=== PATIENT | female | born 1975 | race American Indian/Alaskan Native ===

== ENCOUNTER 2017-02-01 22:51 | Emergency (ER) | payer SELFPAY ==
[2017-02-01 23:50] LABS: Basophils % (Auto) 0.5 % (0.0-1.8); Eosinophils % (Auto) 1.8 % (0.0-4.3); Hematocrit 39.3 % (30.3-42.9); Hemoglobin 12.9 gm/dl (10.1-14.3); Mean Corpuscular HGB Conc 33 % (30-34); Mean Corpuscular Hemoglobin 27 pg (28-32); Mean Corpuscular Volume 83 fl (79-97); Platelet Count 325 K/mm3 (140-440); Red Blood Count 4.74 M/mm3 (3.65-5.03); White Blood Count 12.1 K/mm3 (4.5-11.0)
[2017-02-02 00:18] LABS: Blood Urea Nitrogen 10 mg/dL (7-17); Calcium 9.1 mg/dL (8.4-10.2); Carbon Dioxide 20 mmol/L (22-30); Chloride 102.3 mmol/L (98-107); Glucose 92 mg/dL (65-100); Potassium 3.2 mmol/L (3.6-5.0); Sodium 138 mmol/L (137-145)
[2017-02-02 00:47] LABS: Anion Gap 19 mmol/L
[2017-02-02] MEDS ORDERED: K-DUR PO ONE (06:18)
[2017-02-02] MEDS ORDERED: NORCO 5/325 PO ONE (06:38)
--- NOTE | 2017-02-02 06:52 | Emergency Department Report ---
HPI - General Chief Complaint: Chest Pain Time Seen by Provider: 02/02/17 06:18 - HPI HPI: This is a 41-year-old -Tong[place] female presents to the emergency department by EMS with complaint of sharp generalized chest pain that occurred last night but has since resolved. She also complains of right lower extremity pain and swelling that she says is intermittent but has been bothering her since yesterday. She has a past medical history of arthritis, remote lung cancer, CVA without residual deficits, right lower extremity DVT in 2006, borderline diabetes, migraine headaches, coronary artery disease with questionable MS, hypertension. The patient is also complaining of elevated blood pressure saying that it was systolic 190 prior to presentation and with EMS. She is not on any blood pressure medication but says she had a previous history of hypertension and used to be on medications, although she cannot remember which one. She also complains of a generalized headache that she says is a migraine consistent with her history of migraines. She did not take anything for symptoms prior to presentation. She denies any tobacco or illicit drug use or abuse. Recent travel or sick contacts at home. ED Past Medical Hx - Past Medical History Hx Hypertension: Yes Hx CVA: Yes (age 21) Hx Heart Attack/AMI: Yes (3 times/mild) Hx Diabetes: Yes (boarderline) Hx Deep Vein Thrombosis: Yes ([facility] 2006) Hx of Cancer: Yes (2009 lung) Hx Arthritis: Yes Hx Headaches / Migraines: Yes Hx Seizures: Yes (in her youth) - Surgical History Additional Surgical History: breast cyst, - Social History Smoking Status: Unknown if ever smoked Substance Use Type: None - Medications Home Medications: Home Medications Medication Instructions Recorded Confirmed Last Taken Type HYDROcodone/APAP 5-325 [[place] 1 each PO Q6HR PRN #10 tablet 02/02/17 Unknown Rx 5/325] ED Review of Systems ROS: Stated complaint: CHEST PAIN Other details as noted in HPI Comment: All other systems reviewed and negative Constitutional: denies: chills, fever Eyes: denies: eye pain, eye discharge, vision change ENT: denies: ear pain, throat pain Respiratory: shortness of breath. denies: cough Cardiovascular: chest pain, edema. denies: palpitations Gastrointestinal: denies: abdominal pain, nausea, diarrhea Genitourinary: denies: urgency, dysuria, discharge Musculoskeletal: arthralgia, myalgia Skin: denies: rash, lesions Neurological: headache. denies: numbness, paresthesias Physical Exam - Physical Exam Vital Signs: Vital Signs 02/01/17 02/02/17 02/02/17 23:04 01:11 05:00 Temperature 98.8 F 98.9 F Pulse Rate 98 H 72 79 Respiratory 18 14 18 Rate Blood Pressure 123/85 127/74 Blood Pressure 120/70 [Right] O2 Sat by Pulse 100 98 98 Oximetry 02/02/17 05:44 Temperature Pulse Rate Respiratory 18 Rate Blood Pressure Blood Pressure [Right] O2 Sat by Pulse Oximetry Physical Exam: GENERAL: The patient is well-developed well-nourished. HEENT: Normocephalic. Atraumatic. Extraocular motions are intact. Patient has moist mucous membranes. Pupils equal reactive to light bilaterally. NECK: Supple. Trachea is midline. CHEST/LUNGS: Clear to auscultation. There is no respiratory distress noted. HEART/CARDIOVASCULAR: Regular. There is no tachycardia. There is no gallop rub or murmur. ABDOMEN: Abdomen is soft, nontender. Patient has normal bowel sounds. There is no abdominal distention. SKIN: There is some nonpitting right lower extremity swelling that is slightly larger than the left lower extremity. No skin color change, erythema, fluctuance or warmth. NEURO: The patient is awake, alert, and oriented. The patient is cooperative. The patient has no focal neurologic deficits. The patient has normal speech. MUSCULOSKELETAL: There is no tenderness or deformity. There is no limitation range of motion. There is no evidence of acute injury. ED Course Vital Signs 02/01/17 02/02/17 02/02/17 23:04 01:11 05:00 Temperature 98.8 F 98.9 F Pulse Rate 98 H 72 79 Respiratory 18 14 18 Rate Blood Pressure 123/85 127/74 Blood Pressure 120/70 [Right] O2 Sat by Pulse 100 98 98 Oximetry 02/02/17 05:44 Temperature Pulse Rate Respiratory 18 Rate Blood Pressure Blood Pressure [Right] O2 Sat by Pulse Oximetry ED Medical Decision Making - Lab Data Result diagrams: 02/01/17 23:29 02/01/17 23:29 - EKG Data -: EKG Interpreted by Fl EKG shows normal: sinus rhythm, axis, intervals, QRS complexes, ST-T waves Rate: normal - EKG Data When compared to previous EKG there are: previous EKG unavailable Interpretation: normal EKG - Radiology Data Radiology results: report reviewed, image reviewed interpreted by me: Chest x-ray did not show any acute process. Heart is normal shape and size. No effusions. No pneumothorax. No signs of pneumonia seen. Right lower extremity venous Doppler negative for DVT. CT angiography of the chest does not show any pulmonary embolism, dissection or any acute process. - Medical Decision Making 41-year-old female presents to the emergency department with a few different complaints. She had some chest pain but that has since resolved prior to presentation. She complains of some right lower extremity pain and swelling that is intermittent but might be the main reason she came to the hospital today. She also has complaint of a headache that is consistent with previous migraines. EKG does not show any signs of ST elevation MS, ischemia or dysrhythmia. Labs show negative troponins 3 and the rest are mostly unremarkable except for a slightly elevated equivocal d-dimer. With an elevated d-dimer and the right lower extremity pain, the patient had a right lower extremity venous Doppler that was negative for DVT. Chest CT angiography of the chest was negative for PE or dissection. She was given a dose of pain medication with some improvement. Patient was asking for blood pressure medication but her blood pressure has been within the normal range during her entire ED course and therefore do not plan to start her on any antihypertensives for fear of hypotension. However the patient was given a referral for primary care, cardiology and orthopedist. She will return to the ER with any worsening of her symptoms or any acute distress. - Differential Diagnosis DVT, MS, PE, costochondritis Critical Care Time: No Critical care attestation.: If time is entered above; I have spent that time in minutes in the direct care of this critically ill patient, excluding procedure time. ED Disposition Clinical Impression: Pain of right leg, Right leg swelling Chest pain Qualifiers: Chest pain type: unspecified Qualified Code(s): R07.9 - Chest pain, unspecified Disposition: DC-01 TO HOME OR SELFCARE Is pt being admited?: No Condition: Good Instructions: Chest Pain (ED), Leg Edema (ED), Arthralgia (ED) Additional Instructions: Please follow-up with a primary care physician in the next few days. 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 Ott, in case you would like to follow-up regarding your chest pain and your concern for elevated blood pressure and/or hypertensive history. I did do a referral for a local orthopedist, Dr. Stallings, in case she would like to follow-up regarding your intermittent but chronic right lower leg pain and swelling. Return to the emergency department with any worsening of your symptoms or any acute distress. You've been prescribed a medication that is sedating. Therefore this medication cannot be mixed with alcohol, or taken prior to driving, working, or being responsible for children. Prescriptions: HYDROcodone/APAP 5-325 [[place] 5/325] 1 each PO Q6HR PRN #10 tablet PRN Reason: Pain Referrals: DANIELLE OTT MD [Staff Physician] - 3-5 Days AMANDA CORTEZ MD [Staff Physician] - 3-5 Days PRIMARY CARE, [Primary Care Provider] - 3-5 Days EVERARDO STALLINGS MD [Staff Physician] - 3-5 Days
[2017-02-02 07:36] LABS: INR 1.01 (0.87-1.13)
[2017-02-02 07:37] LABS: Partial Thromboplastin Time 32.5 Sec. (24.2-36.6)
--- NOTE | 2017-02-02 08:31 | XRay Report ---
PORTABLE CHEST: Chest pain. An AP portable view of the chest demonstrates a normal cardiac contour considering the limits of this technique. The lungs are clear with no evidence of infiltrate, fluid or failure. IMPRESSION: Normal portable chest.
[2017-02-02] MEDS ORDERED: NACL ONE ×2 (09:12→11:50)
--- NOTE | 2017-02-02 12:56 | Cat Scan Report ---
CTA chest: History: Chest pain, elevated d-dimer. Findings: No evidence of aortic aneurysm or pulmonary embolism. No pleural pericardial effusion. No mediastinal mass. No evidence of adenopathy. Normal lung parenchyma. No discrete nodularity or consolidation. Impression: No evidence of pulmonary embolism. No acute lung changes.
[2017-02-02 13:41] VITALS: BP 124/73
== END 2017-02-02 13:42 | disposition home or self-care (01) ==
LOC: ED 22:51
DX: M79.604 Pain in right leg (principal); R07.89 Other chest pain; Z86.73 Personal history of transient ischemic attack (TIA), and cerebral infarction without residual deficits; I25.2 Old myocardial infarction; E11.9 Type 2 diabetes mellitus without complications; I82.401 Acute embolism and thrombosis of unspecified deep veins of right lower extremity; M19.90 Unspecified osteoarthritis, unspecified site; G43.909 Migraine, unspecified, not intractable, without status migrainosus; R56.9 Unspecified convulsions; C34.90 Malignant neoplasm of unspecified part of unspecified bronchus or lung; Z88.0 Allergy status to penicillin; Z88.8 Allergy status to other drugs, medicaments and biological substances
CPT/HCPCS: 36415; 71010; 71275; 80048; 81025; 84484; 85025; 85379; 85610; 85730; 93005; 93010

== ENCOUNTER 2017-03-12 19:48 | Emergency (ER) | payer SELFPAY ==
[2017-03-12 23:10] LABS: Basophils % (Auto) 0.8 % (0.0-1.8); Hematocrit 40.9 % (30.3-42.9); Hemoglobin 13.3 gm/dl (10.1-14.3); Mean Corpuscular HGB Conc 33 % (30-34); Mean Corpuscular Hemoglobin 27 pg (28-32); Mean Corpuscular Volume 84 fl (79-97); Platelet Count 350 K/mm3 (140-440); Red Blood Count 4.88 M/mm3 (3.65-5.03); Red Cell Distribution Width 15.1 % (13.2-15.2); White Blood Count 9.7 K/mm3 (4.5-11.0)
[2017-03-12 23:16] LABS: Blood Urea Nitrogen 9 mg/dL (7-17); Calcium 8.8 mg/dL (8.4-10.2); Carbon Dioxide 22 mmol/L (22-30); Chloride 102.6 mmol/L (98-107); Glucose 98 mg/dL (65-100); Sodium 139 mmol/L (137-145)
[2017-03-12 23:22] LABS: Anion Gap 19 mmol/L; Potassium 4.1 mmol/L (3.6-5.0)
[2017-03-13 00:49] LABS: Bilirubin,Urine NEG (Negative); Blood,Urine MOD (Negative); Ketones,Urine NEG (Negative); Leukocyte Esterase,Urine NEG (Negative); Mucus,Urine FEW /HPF; Nitrite,Urine NEG (Negative); Urobilinogen,Urine < 2.0 mg/dL (<2.0)
[2017-03-13] MEDS ORDERED: TYLENOL ONE (02:33)
[2017-03-13] MEDS ORDERED: TYLENOL PO ONE ×2 (05:15→10:48)
--- NOTE | 2017-03-13 10:32 | Emergency Department Report ---
HPI - General Chief Complaint: Dizziness Time Seen by Provider: 03/13/17 10:31 - HPI HPI: patient c/o dizziness, room spinning around her, no fever, no headache. patient states she has had similar symptoms in the past. ED Past Medical Hx - Past Medical History Previous Medical History?: Yes Hx Hypertension: Yes Hx CVA: Yes (age 21) Hx Heart Attack/AMI: Yes (3 times/mild) Hx Diabetes: Yes (boarderline) Hx Deep Vein Thrombosis: Yes ([facility] 2006) Hx Arthritis: Yes Hx Headaches / Migraines: Yes Hx Seizures: Yes (in her youth) - Surgical History Past Surgical History?: Yes Additional Surgical History: breast cyst, - Social History Smoking Status: Former Smoker Substance Use Type: Alcohol, Marijuana - Medications Home Medications: Home Medications Medication Instructions Recorded Confirmed Last Taken Type HYDROcodone/APAP 5-325 [[place] 1 each PO Q6HR PRN #10 tablet 02/02/17 Unknown Rx 5/325] ED Review of Systems ROS: Stated complaint: HEADACHE/DIZZINESS Other details as noted in HPI Physical Exam - Physical Exam Vital Signs: Vital Signs 03/12/17 03/13/17 03/13/17 21:32 02:40 08:36 Temperature 99.2 F Pulse Rate 77 Respiratory 18 18 Rate Blood Pressure 142/81 O2 Sat by Pulse 97 99 Oximetry 03/13/17 03/13/17 08:45 09:01 Temperature Pulse Rate Respiratory Rate Blood Pressure 138/77 138/77 O2 Sat by Pulse 100 93 Oximetry Physical Exam: - General Limitations: No Limitations General appearance: alert, in no apparent distress - Head Head exam: Present: atraumatic, normocephalic - Eye Eye exam: Present: normal appearance - ENT ENT exam: Present: mucous membranes moist - Neck Neck exam: Present: normal inspection - Respiratory Respiratory exam: Present: normal lung sounds bilaterally. Absent: respiratory distress - Cardiovascular Cardiovascular Exam: Present: regular rate, normal rhythm. Absent: systolic murmur, diastolic murmur, rubs, gallop - GI/Abdominal GI/Abdominal exam: Present: soft, normal bowel sounds - Extremities Exam Extremities exam: Present: normal inspection - Back Exam Back exam: Present: normal inspection - Neurological Exam Neurological exam: Present: alert, oriented X3, CN II-XII intact - Psychiatric Psychiatric exam: Present:normal affect - Skin Skin exam: Present: warm, dry, intact, normal color. Absent: rash ED Course Vital Signs 03/12/17 03/13/17 03/13/17 21:32 02:40 08:36 Temperature 99.2 F Pulse Rate 77 Respiratory 18 18 Rate Blood Pressure 142/81 O2 Sat by Pulse 97 99 Oximetry 03/13/17 03/13/17 08:45 09:01 Temperature Pulse Rate Respiratory Rate Blood Pressure 138/77 138/77 O2 Sat by Pulse 100 93 Oximetry ED Medical Decision Making - Lab Data Result diagrams: 03/12/17 22:43 03/12/17 22:43 Critical care attestation.: If time is entered above; I have spent that time in minutes in the direct care of this critically ill patient, excluding procedure time. ED Disposition Clinical Impression: Dizziness, Hypoglycemia Disposition: OP ADMIT IP TO THIS HOSP Condition: Stable Instructions: Dizziness (ED) Referrals: PRIMARY MD NIKITA [Primary Care Provider] - 3-5 Days CECILLE BUCHANAN MD [Staff Physician] - 3-5 Days
[2017-03-13 10:54] VITALS: BP 120/63
[2017-03-13] MEDS ORDERED: MOTRIN PO ONE (11:20)
[2017-03-13] MEDS ORDERED: MOTRIN ONE (11:20)
--- NOTE | 2017-03-13 11:43 | XRay Report ---
ROUTINE CHEST, TWO VIEWS: HISTORY: Shortness of breath. The trachea, heart, mediastinal contour, lung hurd and bony thorax are unremarkable. IMPRESSION: No acute cardiopulmonary process is appreciated.
== END 2017-03-13 10:55 | disposition admitted as inpatient to this hospital (09) ==
LOC: ED 19:48
DX: E11.649 Type 2 diabetes mellitus with hypoglycemia without coma (principal); R42 Dizziness and giddiness; I10 Essential (primary) hypertension; Z86.73 Personal history of transient ischemic attack (TIA), and cerebral infarction without residual deficits; M19.90 Unspecified osteoarthritis, unspecified site; Z87.891 Personal history of nicotine dependence; F12.10 Cannabis abuse, uncomplicated; Z88.0 Allergy status to penicillin; Z88.8 Allergy status to other drugs, medicaments and biological substances
CPT/HCPCS: 36415; 71020; 80048; 81001; 82962; 84484; 84703; 85025; 93005; 93010

== ENCOUNTER 2017-06-18 17:03 | Emergency (ER) | payer OTHER ==
[2017-06-18 18:17] LABS: Basophils % (Auto) 0.7 % (0.0-1.8); Eosinophils % (Auto) 1.8 % (0.0-4.3); Hematocrit 39.2 % (30.3-42.9); Hemoglobin 13.1 gm/dl (10.1-14.3); Mean Corpuscular HGB Conc 33 % (30-34); Mean Corpuscular Hemoglobin 28 pg (28-32); Mean Corpuscular Volume 85 fl (79-97); Platelet Count 324 K/mm3 (140-440); Red Blood Count 4.62 M/mm3 (3.65-5.03); Red Cell Distribution Width 14.4 % (13.2-15.2); White Blood Count 11.3 K/mm3 (4.5-11.0)
[2017-06-18 18:24] LABS: Anion Gap 22 mmol/L; BUN/Creatinine Ratio 22; Blood Urea Nitrogen 11 mg/dL (7-17); Calcium 9.1 mg/dL (8.4-10.2); Carbon Dioxide 20 mmol/L (22-30); Glucose 111 mg/dL (65-100); Potassium 3.8 mmol/L (3.6-5.0); Sodium 142 mmol/L (137-145)
--- NOTE | 2017-06-18 21:21 | XRay Report ---
FINAL REPORT PROCEDURE: XR CHEST ROUTINE 2V TECHNIQUE: PA and lateral chest radiographs were obtained. CPT 06005 HISTORY: chest pain/cough COMPARISON: No prior studies are available for comparison. FINDINGS: Heart: Normal. Mediastinum/Vessels: Normal. Lungs/Pleural space: Normal. Bony thorax: No acute osseous abnormality. Other: IMPRESSION: Normal examination.
--- NOTE | 2017-06-19 00:43 | Emergency Department Report ---
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 No fever no shortness of breath. No vomiting MD Complaint: chest pain Pain Location: other (diffuse) Severity scale (0 -10): 7 - Related Data Home Medications Medication Instructions Recorded Confirmed Last Taken Aspirin [Aspirin BABY CHEW TAB] 81 mg PO DAILY 06/19/17 06/19/17 Unknown Allergies Allergy/AdvReac Type Severity Reaction Status Date / Time fluoxetine HCl [From Prozac] Allergy Unknown Verified 02/01/17 23:13 Penicillins Allergy Unknown Verified 02/01/17 23:13 Heart Score - HEART Score History: Moderately suspicious EKG: Normal Age: < 45 Risk factors: 1-2 risk factors Troponin: < normal limit HEART Score: 2 - Critical Actions Critical Actions: 0-3 pts:0.9-1.7%risk of adverse cardiac event.Candidate for discharge ED Review of Systems ROS: Stated complaint: CHEST PAIN Other details as noted in HPI Comment: All other systems reviewed and negative Constitutional: denies: chills, fever ENT: throat pain. denies: dental pain, hearing loss Respiratory: cough. denies: orthopnea, shortness of breath, SOB with exertion Cardiovascular: chest pain. denies: palpitations, dyspnea on exertion, orthopnea, edema, syncope, paroxysmal nocturnal dyspnea Gastrointestinal: denies: abdominal pain, nausea, vomiting, diarrhea, constipation, hematemesis, melena, hematochezia Genitourinary: denies: urgency, dysuria Neurological: denies: headache, weakness, numbness ED Past Medical Hx - Past Medical History Previous Medical History?: Yes Hx Hypertension: Yes Hx CVA: Yes (age 21) Hx Heart Attack/AMI: Yes (3 times/mild) Hx Diabetes: Yes (boarderline) Hx Deep Vein Thrombosis: Yes ([facility] 2006) Hx Arthritis: Yes Hx Headaches / Migraines: Yes Hx Seizures: Yes (in her youth) - Surgical History Past Surgical History?: Yes Additional Surgical History: breast cyst, - Social History Smoking Status: Never Smoker Substance Use Type: Marijuana - Medications Home Medications: Home Medications Medication Instructions Recorded Confirmed Last Taken Type Aspirin [Aspirin BABY CHEW TAB] 81 mg PO DAILY 06/19/17 06/19/17 Unknown History ED Physical Exam - General Limitations: No Limitations General appearance: alert, in no apparent distress - Head Head exam: Present: atraumatic, normocephalic - Eye Eye exam: Present: normal appearance, PERRL - ENT ENT exam: Present: normal exam, normal orophraynx, mucous membranes moist - Neck Neck exam: Present: normal inspection, full ROM. Absent: tenderness, meningismus, lymphadenopathy, thyromegaly - Respiratory Respiratory exam: Present: normal lung sounds bilaterally. Absent: respiratory distress, wheezes, rales, rhonchi, chest wall tenderness, accessory muscle use, decreased breath sounds, prolonged expiratory - Cardiovascular Cardiovascular Exam: Present: regular rate, normal rhythm, normal heart sounds - GI/Abdominal GI/Abdominal exam: Present: soft, normal bowel sounds. Absent: distended, tenderness, guarding, rebound, rigid, mass, bruit, pulsatile mass, hernia - Extremities Exam Extremities exam: Present: normal inspection. Absent: pedal edema, calf tenderness - Back Exam Back exam: Absent: normal inspection, CVA tenderness (R), CVA tenderness (L) - Neurological Exam Neurological exam: Present: alert, oriented X3, CN II-XII intact, normal gait - Skin Skin exam: Present: warm, intact, normal color ED Course Vital Signs 06/18/17 06/18/17 06/18/17 17:38 17:50 22:57 Temperature 99.1 F 98.8 F Pulse Rate 86 82 Respiratory 16 16 20 Rate Blood Pressure 135/75 151/89 [Right] O2 Sat by Pulse 98 98 Oximetry 06/18/17 23:04 Temperature Pulse Rate Respiratory 20 Rate Blood Pressure [Right] O2 Sat by Pulse 98 Oximetry ED Medical Decision Making - Lab Data Result diagrams: 06/18/17 17:54 06/18/17 17:54 - EKG Data -: EKG Interpreted by Ri EKG shows normal: sinus rhythm Rate: normal - EKG Data Interpretation: no acute changes - Radiology Data Radiology results: report reviewed Chest x-ray with no acute findings - Medical Decision Making Patient is chest pain-free now. Her symptoms is most likely acute bronchitis will treat with antibiotic. Patient advised to follow-up with her primary care physician for further management. Critical care attestation.: If time is entered above; I have spent that time in minutes in the direct care of this critically ill patient, excluding procedure time. ED Disposition Clinical Impression: Chest pain, Acute bronchitis Disposition: TO HOME OR SELFCARE Is pt being admited?: No Condition: Stable Instructions: Chest Pain (ED), Acute Bronchitis (ED) Referrals: PRIMARY CARE, [Primary Care Provider] - 3-5 Days
[2017-06-19] MEDS ORDERED: ZOFRAN ODT PO ONE (00:45)
[2017-06-19] MEDS ORDERED: NORCO 5/325 PO ONE (00:45)
[2017-06-19 02:49] VITALS: BP 145/78
== END 2017-06-19 02:34 | disposition home or self-care (01) ==
LOC: ED 17:03
DX: J20.9 Acute bronchitis, unspecified (principal); I10 Essential (primary) hypertension; M19.90 Unspecified osteoarthritis, unspecified site; G43.909 Migraine, unspecified, not intractable, without status migrainosus; I25.2 Old myocardial infarction; F12.10 Cannabis abuse, uncomplicated; Z86.73 Personal history of transient ischemic attack (TIA), and cerebral infarction without residual deficits; Z86.718 Personal history of other venous thrombosis and embolism; Z88.0 Allergy status to penicillin; Z88.8 Allergy status to other drugs, medicaments and biological substances
CPT/HCPCS: 36415; 71020; 80048; 84484; 85025; 93005; 93010; 99284; Q0162

== ENCOUNTER 2017-07-23 18:46 | Emergency (ER) | payer MEDICARE ==
[2017-07-23] MEDS ORDERED: ASPIRIN PO ONE (20:42)
[2017-07-23 21:37] LABS: Basophils # (Auto) 0.1 K/mm3 (0.0-0.1); Basophils % (Auto) 0.7 % (0.0-1.8); Eosinophils # (Auto) 0.1 K/mm3 (0.0-0.4); Eosinophils % (Auto) 1.3 % (0.0-4.3); Hematocrit 39.9 % (30.3-42.9); Hemoglobin 13.4 gm/dl (10.1-14.3); Lymphocytes # (Auto) 2.8 K/mm3 (1.2-5.4); Lymphocytes % (Auto) 28.5 % (13.4-35.0); Mean Corpuscular HGB Conc 34 % (30-34); Mean Corpuscular Hemoglobin 28 pg (28-32); Mean Corpuscular Volume 84 fl (79-97); Monocytes # (Auto) 0.6 K/mm3 (0.0-0.8); Monocytes % (Auto) 5.6 % (0.0-7.3); Platelet Count 329 K/mm3 (140-440); Red Blood Count 4.76 M/mm3 (3.65-5.03)
[2017-07-23 21:39] LABS: BUN/Creatinine Ratio 18; Blood Urea Nitrogen 7 mg/dL (7-17); Hemolysis Index 7
--- NOTE | 2017-07-24 06:55 | Emergency Department Report ---
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 Patient also reported that for the last 2 months, she's been having some peripheral lower extremity edema. Patient now is completely asymptomatic. MD Complaint: chest pain -: days(s) Onset: during rest Pain Location: substernal Severity scale (0 -10): 2 Quality: tightness Consistency: intermittent, now resolved - Related Data Home Medications Medication Instructions Recorded Confirmed Last Taken Aspirin [Aspirin BABY CHEW TAB] 81 mg PO DAILY 06/19/17 06/19/17 Unknown Previous Rx's Medication Instructions Recorded Last Taken Type ALBUTEROL Inhaler [ProAir HFA 2 puff IH QID PRN #1 inhalation 06/19/17 Unknown Rx Inhaler] Ciprofloxacin HCl [Ciprofloxacin 500 mg PO Q12H #14 tab 06/19/17 Unknown Rx TAB] guaiFENesin/CODEINE [Robitussin AC] 10 ml PO TID PRN #100 ml 06/19/17 Unknown Rx Furosemide [Lasix] 20 mg PO QDAY #15 tablet 07/24/17 Unknown Rx Potassium Chloride [K-Dur] 10 meq PO QDAY #15 tablet 07/24/17 Unknown Rx Allergies Allergy/AdvReac Type Severity Reaction Status Date / Time fluoxetine HCl [From Prozac] Allergy Unknown Verified 02/01/17 23:13 Penicillins Allergy Unknown Verified 02/01/17 23:13 Heart Score - HEART Score History: Moderately suspicious EKG: Normal Age: < 45 Risk factors: No known risk factors Troponin: < normal limit HEART Score: 1 - Critical Actions Critical Actions: 0-3 pts:0.9-1.7%risk of adverse cardiac event.Candidate for discharge ED Review of Systems ROS: Stated complaint: C/P Other details as noted in HPI Comment: All other systems reviewed and negative Constitutional: denies: chills, fever Respiratory: denies: cough, shortness of breath, SOB with exertion Cardiovascular: chest pain, palpitations. denies: dyspnea on exertion, orthopnea, edema, syncope, paroxysmal nocturnal dyspnea Gastrointestinal: denies: abdominal pain, nausea, vomiting, diarrhea, constipation, hematemesis, melena, hematochezia Genitourinary: denies: urgency Musculoskeletal: denies: back pain ED Past Medical Hx - Past Medical History Hx Hypertension: Yes Hx CVA: Yes (age 21) Hx Heart Attack/AMI: Yes (3 times/mild, WPW) Hx Diabetes: Yes (boarderline) Hx Deep Vein Thrombosis: Yes ([facility] 2006) Hx Arthritis: Yes Hx Headaches / Migraines: Yes Hx Seizures: Yes (in her youth) - Surgical History Additional Surgical History: breast cyst, - Social History Smoking Status: Never Smoker Substance Use Type: None - Medications Home Medications: Home Medications Medication Instructions Recorded Confirmed Last Taken Type ALBUTEROL Inhaler [ProAir HFA 2 puff IH QID PRN #1 inhalation 06/19/17 Unknown Rx Inhaler] Aspirin [Aspirin BABY CHEW TAB] 81 mg PO DAILY 06/19/17 06/19/17 Unknown History Ciprofloxacin HCl [Ciprofloxacin 500 mg PO Q12H #14 tab 06/19/17 Unknown Rx TAB] guaiFENesin/CODEINE [Robitussin AC] 10 ml PO TID PRN #100 ml 06/19/17 Unknown Rx Furosemide [Lasix] 20 mg PO QDAY #15 tablet 07/24/17 Unknown Rx Potassium Chloride [K-Dur] 10 meq PO QDAY #15 tablet 07/24/17 Unknown Rx ED Physical Exam - General Limitations: No Limitations General appearance: alert, in no apparent distress - Head Head exam: Present: atraumatic - Eye Eye exam: Present: normal appearance, PERRL - ENT ENT exam: Present: normal exam, normal orophraynx, mucous membranes moist - Neck Neck exam: Present: normal inspection, full ROM. Absent: tenderness - Respiratory Respiratory exam: Present: normal lung sounds bilaterally. Absent: respiratory distress, wheezes, rales, rhonchi, stridor, chest wall tenderness, accessory muscle use, decreased breath sounds, prolonged expiratory - Cardiovascular Cardiovascular Exam: Present: regular rate, normal rhythm, normal heart sounds - GI/Abdominal GI/Abdominal exam: Present: soft, normal bowel sounds. Absent: distended, tenderness, guarding, rebound, rigid, organomegaly, mass, bruit, pulsatile mass , hernia - Extremities Exam Extremities exam: Present: normal inspection, full ROM, normal capillary refill - Back Exam Back exam: Present: normal inspection, full ROM. Absent: tenderness, CVA tenderness (L) - Neurological Exam Neurological exam: Present: alert, oriented X3, CN II-XII intact, normal gait - Psychiatric Psychiatric exam: Present: normal affect - Skin Skin exam: Present: warm, intact, normal color ED Course Vital Signs 07/23/17 07/24/17 07/24/17 20:36 06:14 06:15 Temperature 99.1 F Pulse Rate 73 79 79 Respiratory 20 15 14 Rate Blood Pressure 120/80 O2 Sat by Pulse 100 100 100 Oximetry 07/24/17 07/24/17 07/24/17 06:24 06:30 06:45 Temperature Pulse Rate 77 84 Respiratory 16 13 13 Rate Blood Pressure 138/71 138/71 O2 Sat by Pulse 100 99 100 Oximetry 07/24/17 07/24/17 07/24/17 07:00 07:15 07:30 Temperature Pulse Rate 77 79 82 Respiratory 11 L 13 12 Rate Blood Pressure 136/76 138/71 147/89 O2 Sat by Pulse 99 95 100 Oximetry ED Medical Decision Making - Lab Data Result diagrams: 07/23/17 21:00 07/23/17 21:00 - EKG Data -: EKG Interpreted by Me EKG shows normal: sinus rhythm Rate: normal - EKG Data Interpretation: no acute changes Critical care attestation.: If time is entered above; I have spent that time in minutes in the direct care of this critically ill patient, excluding procedure time. ED Disposition Clinical Impression: Chest pain, Peripheral edema, WPW (Valpp-Dobhishlr-Wzcck syndrome) Disposition: - TO HOME OR SELFCARE Is pt being admited?: No Condition: Stable Instructions: Chest Pain (ED) Prescriptions: Furosemide [Lasix] 20 mg PO QDAY #15 tablet Potassium Chloride [K-Dur] 10 meq PO QDAY #15 tablet Referrals: FAB HOROWITZ MD [Primary Care Provider] - 3-5 Days CHONG ISBELL MD [Staff Physician] - 3-5 Days
[2017-07-24 07:37] VITALS: BP 147/89
== END 2017-07-24 07:38 | disposition home or self-care (01) ==
LOC: ED 18:46
DX: R07.89 Other chest pain (principal); I45.6 Pre-excitation syndrome; Z79.82 Long term (current) use of aspirin; Z88.0 Allergy status to penicillin; I11.0 Hypertensive heart disease with heart failure; Z86.718 Personal history of other venous thrombosis and embolism; M19.90 Unspecified osteoarthritis, unspecified site; G43.909 Migraine, unspecified, not intractable, without status migrainosus
CPT/HCPCS: 36415; 80048; 84484; 84703; 85025; 93005; 93010; 99283

== ENCOUNTER 2017-09-02 22:56 | Emergency (ER) | payer MEDICARE ==
[2017-09-03 01:23] LABS: Alanine Aminotransferase 10 units/L (7-56); Albumin 3.9 g/dL (3.9-5); BUN/Creatinine Ratio 34; Blood Urea Nitrogen 17 mg/dL (7-17); Calcium 9.1 mg/dL (8.4-10.2); Hemolysis Index 7; Lipase 45 units/L (13-60)
[2017-09-03 01:34] LABS: Basophils # (Auto) 0.1 K/mm3 (0.0-0.1); Basophils % (Auto) 0.8 % (0.0-1.8); Eosinophils # (Auto) 0.2 K/mm3 (0.0-0.4); Eosinophils % (Auto) 1.5 % (0.0-4.3); Hematocrit 37.7 % (30.3-42.9); Hemoglobin 12.8 gm/dl (10.1-14.3); Lymphocytes # (Auto) 3.1 K/mm3 (1.2-5.4); Lymphocytes % (Auto) 29.5 % (13.4-35.0); Mean Corpuscular HGB Conc 34 % (30-34); Mean Corpuscular Hemoglobin 28 pg (28-32); Mean Corpuscular Volume 82 fl (79-97); Monocytes # (Auto) 0.6 K/mm3 (0.0-0.8); Monocytes % (Auto) 5.4 % (0.0-7.3); Platelet Count 338 K/mm3 (140-440); Red Blood Count 4.59 M/mm3 (3.65-5.03); Red Cell Distribution Width 14.9 % (13.2-15.2)
[2017-09-03 01:50] LABS: Amorphous Crystals,Urine 1+; Bacteria,Urine 1+ /HPF (Negative); Bilirubin,Urine NEG (Negative); Blood,Urine SM (Negative); Color,Urine Yellow (Yellow); Mucus,Urine FEW /HPF; Nitrite,Urine NEG (Negative); Protein,Urine <15 mg/dL mg/dL (Negative); Urobilinogen,Urine < 2.0 mg/dL (<2.0)
[2017-09-03] MEDS ORDERED: TYLENOL ONE (02:28)
[2017-09-03] MEDS ORDERED: TYLENOL PO ONE (03:45)
--- NOTE | 2017-09-03 11:07 | Emergency Department Report ---
ED General Adult HPI - General Chief complaint: Abdominal Pain Stated complaint: BILATERAL FLANK PAIN,DIZZINESS Source: patient Mode of arrival: Stretcher Limitations: No Limitations - History of Present Illness Initial comments: 41 yo female presents with headache, dizziness and bilateral flank pain. Ms. Jones came to ED via EMS yesterday evening. Moderate 7/10 throbbing headache. She has gradual onset of bilateral flank pain. NO dysuria. No hematuria. Patient was concerned about possible blood pressure elevation. She also have a painful nodule at lower right back. Severity scale (0 -10): 10 - Related Data Home Medications Medication Instructions Recorded Confirmed Last Taken Aspirin [Aspirin BABY CHEW TAB] 81 mg PO DAILY 06/19/17 06/19/17 Unknown Previous Rx's Medication Instructions Recorded Last Taken Type ALBUTEROL Inhaler [ProAir HFA 2 puff IH QID PRN #1 inhalation 06/19/17 Unknown Rx Inhaler] Ciprofloxacin HCl [Ciprofloxacin 500 mg PO Q12H #14 tab 06/19/17 Unknown Rx TAB] guaiFENesin/CODEINE [Robitussin AC] 10 ml PO TID PRN #100 ml 06/19/17 Unknown Rx Furosemide [Lasix] 20 mg PO QDAY #15 tablet 07/24/17 Unknown Rx Potassium Chloride [K-Dur] 10 meq PO QDAY #15 tablet 07/24/17 Unknown Rx Allergies Allergy/AdvReac Type Severity Reaction Status Date / Time fluoxetine HCl [From Prozac] Allergy Unknown Verified 02/01/17 23:13 Penicillins Allergy Unknown Verified 02/01/17 23:13 ED Review of Systems ROS: Stated complaint: BILATERAL FLANK PAIN,DIZZINESS Other details as noted in HPI Comment: All other systems reviewed and negative Constitutional: denies: chills, fever Respiratory: denies: cough Cardiovascular: denies: chest pain ED Past Medical Hx - Past Medical History Hx Hypertension: Yes Hx CVA: Yes (age 21) Hx Heart Attack/AMI: Yes (3 times/mild, WPW) Hx Diabetes: Yes (boarderline) Hx Deep Vein Thrombosis: Yes (RLL 2006) Hx Arthritis: Yes Hx Headaches / Migraines: Yes Hx Seizures: Yes (in her youth) - Surgical History Additional Surgical History: breast cyst, - Social History Smoking Status: Never Smoker Substance Use Type: None - Medications Home Medications: Home Medications Medication Instructions Recorded Confirmed Last Taken Type ALBUTEROL Inhaler [ProAir HFA 2 puff IH QID PRN #1 inhalation 06/19/17 Unknown Rx Inhaler] Aspirin [Aspirin BABY CHEW TAB] 81 mg PO DAILY 06/19/17 06/19/17 Unknown History Ciprofloxacin HCl [Ciprofloxacin 500 mg PO Q12H #14 tab 06/19/17 Unknown Rx TAB] guaiFENesin/CODEINE [Robitussin AC] 10 ml PO TID PRN #100 ml 06/19/17 Unknown Rx Furosemide [Lasix] 20 mg PO QDAY #15 tablet 07/24/17 Unknown Rx Potassium Chloride [K-Dur] 10 meq PO QDAY #15 tablet 07/24/17 Unknown Rx ED Physical Exam - General Limitations: No Limitations General appearance: alert, in no apparent distress - Head Head exam: Present: atraumatic, normocephalic - Eye Eye exam: Present: normal appearance - ENT ENT exam: Present: normal exam, normal orophraynx, mucous membranes moist - Neck Neck exam: Present: normal inspection. Absent: meningismus - Respiratory Respiratory exam: Present: normal lung sounds bilaterally. Absent: respiratory distress, wheezes, rales, rhonchi - Cardiovascular Cardiovascular Exam: Present: regular rate, normal rhythm. Absent: systolic murmur, diastolic murmur, rubs, gallop - GI/Abdominal GI/Abdominal exam: Present: soft, normal bowel sounds. Absent: distended, tenderness, guarding, rebound - Extremities Exam Extremities exam: Present: normal inspection - Back Exam Back exam: Present: normal inspection, full ROM. Absent: tenderness, CVA tenderness (R), CVA tenderness (L) - Neurological Exam Neurological exam: Present: alert, oriented X3 - Psychiatric Psychiatric exam: Present: normal affect, normal mood - Skin Skin exam: Present: warm, dry, intact, normal color, other (nodule right mildly tender no cellulitis ). Absent: rash ED Course Vital Signs 09/03/17 09/03/17 09/03/17 00:23 08:16 10:27 Temperature 98 F 98.5 F Pulse Rate 78 76 71 Respiratory 18 16 16 Rate Blood Pressure 153/97 123/70 O2 Sat by Pulse 100 99 Oximetry 09/03/17 09/03/17 09/03/17 10:30 10:34 12:14 Temperature 97.6 F Pulse Rate 73 78 Respiratory 12 13 Rate Blood Pressure 129/80 149/74 O2 Sat by Pulse 99 100 Oximetry 09/03/17 12:30 Temperature Pulse Rate 85 Respiratory 15 Rate Blood Pressure 116/81 O2 Sat by Pulse 97 Oximetry ED Medical Decision Making - Lab Data Result diagrams: 09/03/17 00:43 09/03/17 00:43 Laboratory Results - last 24 hr 09/03/17 09/03/17 09/03/17 00:43 00:43 00:43 WBC 10.4 RBC 4.59 Hgb 12.8 Hct 37.7 MCV 82 MCH 28 MCHC 34 RDW 14.9 Plt Count 338 Lymph % (Auto) 29.5 [place] % (Auto) 5.4 Eos % (Auto) 1.5 Baso % (Auto) 0.8 Lymph # 3.1 [place] # 0.6 Eos # 0.2 Baso # 0.1 Seg Neutrophils % 62.8 Seg Neutrophils # 6.6 Sodium 142 Potassium 3.9 Chloride 102.4 Carbon Dioxide 25 Anion Gap 19 BUN 17 Creatinine 0.5 L Estimated GFR > 60 BUN/Creatinine Ratio 34 Glucose 106 H Calcium 9.1 Total Bilirubin 0.40 AST 12 ALT 10 Alkaline Phosphatase 76 Total Protein 7.7 Albumin 3.9 Albumin/Globulin Ratio 1.0 Lipase 45 HCG, Qual Negative Urine Color Urine Turbidity Urine pH Ur Specific Foster Urine Protein Urine Glucose (UA) Urine Ketones Urine Blood Urine Nitrite Urine Bilirubin Urine Urobilinogen Ur Leukocyte Esterase Urine WBC (Auto) Urine RBC (Auto) U Epithel Cells (Auto) Urine Bacteria (Auto) Amorphous Crystals Urine Mucus 09/03/17 00:59 WBC RBC Hgb Hct MCV MCH MCHC RDW Plt Count Lymph % (Auto) [place] % (Auto) Eos % (Auto) Baso % (Auto) Lymph # [place] # Eos # Baso # Seg Neutrophils % Seg Neutrophils # Sodium Potassium Chloride Carbon Dioxide Anion Gap BUN Creatinine Estimated GFR BUN/Creatinine Ratio Glucose Calcium Total Bilirubin AST ALT Alkaline Phosphatase Total Protein Albumin Albumin/Globulin Ratio Lipase HCG, Qual Urine Color Yellow Urine Turbidity Clear Urine pH 6.0 Ur Specific Foster 1.014 Urine Protein <15 mg/dl Urine Glucose (UA) Neg Urine Ketones Neg Urine Blood Sm Urine Nitrite Neg Urine Bilirubin Neg Urine Urobilinogen < 2.0 Ur Leukocyte Esterase Neg Urine WBC (Auto) 5.0 Urine RBC (Auto) 2.0 U Epithel Cells (Auto) 20.0 H Urine Bacteria (Auto) 1+ Amorphous Crystals 1+ Urine Mucus Few Vital Signs - 24 hr 09/03/17 09/03/17 09/03/17 00:23 08:16 10:27 Temperature 98 F 98.5 F Pulse Rate 78 76 71 Respiratory 18 16 16 Rate Blood Pressure 153/97 123/70 O2 Sat by Pulse 100 99 Oximetry 09/03/17 09/03/17 10:30 10:34 Temperature 97.6 F Pulse Rate 73 Respiratory 12 Rate Blood Pressure 129/80 O2 Sat by Pulse 99 Oximetry - EKG Data 09/03/17 11:06 EKG obtained 00 37 09/03/2017 Normal sinus rhythm rate of 78 normal axis normal intervals no ST elevation - Medical Decision Making 1. tension headache 2. back pain: musculoskeletal 3. skin nodule given reassurance no evidence of acute process dc'd home, given referral for PCP Critical care attestation.: If time is entered above; I have spent that time in minutes in the direct care of this critically ill patient, excluding procedure time. ED Disposition Clinical Impression: Tension headache, Back pain, Skin nodule Disposition: PAT REG,NO TRIAGE Is pt being admited?: No Does the pt Need Aspirin: No Condition: Stable Instructions: Flank Pain (ED) Referrals: [facility] [Outside] - [place] Time of Disposition: 13:18
--- NOTE | 2017-09-03 11:48 | Cat Scan Report ---
CT ABDOMEN PELVIS WITHOUT CONTRAST: HISTORY: Flank pain. COMPARISON: none. TECHNIQUE: Helical CT in 1.25mm intervals without IV contrast. Sagittal and coronal reconstructions. FINDINGS: Lung bases: Normal. Liver: Normal. Biliary system: Normal. Pancreas: Normal. Spleen: Normal. Kidneys/ureters/bladder: Normal. Adrenal glands: Normal. Aorta: Normal. Intestines: Normal. Appendix: Normal. Pelvic viscera: A 2.5 cm left ovarian cyst is identified. The uterus and right adnexa are unremarkable. Ascites: None. Adenopathy: None. Musculoskeletal: Normal. IMPRESSION: 2.5 cm left ovarian cyst.
[2017-09-03] MEDS ORDERED: PERCOCET 5/325 PO ONE (13:11)
[2017-09-03 13:46] VITALS: BP 134/55
== END 2017-09-03 13:47 | disposition left against medical advice (07) ==
LOC: ED 22:56
DX: G44.209 Tension-type headache, unspecified, not intractable (principal); M54.9 Dorsalgia, unspecified; R22.2 Localized swelling, mass and lump, trunk; Z86.73 Personal history of transient ischemic attack (TIA), and cerebral infarction without residual deficits; I25.2 Old myocardial infarction; M19.90 Unspecified osteoarthritis, unspecified site; G43.909 Migraine, unspecified, not intractable, without status migrainosus; R56.9 Unspecified convulsions; E11.9 Type 2 diabetes mellitus without complications; Z88.0 Allergy status to penicillin; Z88.8 Allergy status to other drugs, medicaments and biological substances; Z79.82 Long term (current) use of aspirin
CPT/HCPCS: 36415; 74176; 80053; 81001; 83690; 84703; 85025; 93005; 93010

== ENCOUNTER 2018-01-04 20:39 | Emergency (ER) | payer MEDICARE ==
[2018-01-05 00:20] LABS: Basophils % (Auto) 0.4 % (0.0-1.8); Eosinophils # (Auto) 0.3 K/mm3 (0.0-0.4); Eosinophils % (Auto) 2.3 % (0.0-4.3); Hematocrit 36.9 % (30.3-42.9); Lymphocytes # (Auto) 3.2 K/mm3 (1.2-5.4); Lymphocytes % (Auto) 28.4 % (13.4-35.0); Mean Corpuscular HGB Conc 33 % (30-34); Mean Corpuscular Hemoglobin 27 pg (28-32); Mean Corpuscular Volume 82 fl (79-97); Monocytes # (Auto) 0.8 K/mm3 (0.0-0.8); Monocytes % (Auto) 7.3 % (0.0-7.3); Platelet Count 326 K/mm3 (140-440); Red Blood Count 4.48 M/mm3 (3.65-5.03); Red Cell Distribution Width 15.6 % (13.2-15.2)
[2018-01-05 00:33] LABS: Alanine Aminotransferase 10 units/L (7-56); BUN/Creatinine Ratio 22; Blood Urea Nitrogen 13 mg/dL (7-17); Calcium 9.1 mg/dL (8.4-10.2); Hemolysis Index 4
[2018-01-05] MEDS ORDERED: NACL 0.9% 500 ML 500 ML IV ONE (07:14)
[2018-01-05] MEDS ORDERED: REGLAN IV ONE (07:14)
[2018-01-05] MEDS ORDERED: BENADRYL IV ONE (07:14)
--- NOTE | 2018-01-05 07:16 | Emergency Department Report ---
ED General Adult HPI - General Chief complaint: Seizure Stated complaint: HEADACHE Time Seen by Provider: 01/05/18 07:03 Source: patient, RN notes reviewed, old records reviewed Mode of arrival: Stretcher Limitations: No Limitations - History of Present Illness Initial comments: This is a 42-year-old female who is unknown to this provider previously. She reports a history of DVT, now resolved, Xhfuy-Ddzdivrvf-[id number] syndrome, hypertension, possible history of seizure disorder, does not take any antiepileptic drugs, reports that she had 3 seizures last night, reports that her prior seizure was a few months ago. The patient also complains of generalized body aches, right lower extremity pain, and chest tightness for months. She also endorses bitemporal headache for months. Her seizures have since resolved. Her headache has since resolved. Her chest tightness has since resolved. Her symptoms are intermittent, did not radiate anywhere, wax and wane, and did not have exacerbating or relieving factors. -: Gradual, week(s), month(s) Location: head, chest, right, lower extremity Quality: aching Consistency: intermittent Improves with: none Worsens with: none Associated Symptoms: chest pain, headaches, seizure, weakness. denies: confusion, cough, diaphoresis, fever/chills, loss of appetite, malaise, nausea/ vomiting, rash, shortness of breath, syncope - Related Data Home Medications Medication Instructions Recorded Confirmed Last Taken Aspirin [Aspirin BABY CHEW TAB] 81 mg PO DAILY 06/19/17 06/19/17 Unknown Previous Rx's Medication Instructions Recorded Last Taken Type ALBUTEROL Inhaler [ProAir HFA 2 puff IH QID PRN #1 inhalation 06/19/17 Unknown Rx Inhaler] Ciprofloxacin HCl [Ciprofloxacin 500 mg PO Q12H #14 tab 06/19/17 Unknown Rx TAB] guaiFENesin/CODEINE [Robitussin AC] 10 ml PO TID PRN #100 ml 06/19/17 Unknown Rx Furosemide [Lasix] 20 mg PO QDAY #15 tablet 07/24/17 Unknown Rx Potassium Chloride [K-Dur] 10 meq PO QDAY #15 tablet 07/24/17 Unknown Rx oxyCODONE /ACETAMINOPHEN [Percocet 1 tab PO Q6HR PRN #10 tablet 09/03/17 Unknown Rx 5/325] Allergies Allergy/AdvReac Type Severity Reaction Status Date / Time fluoxetine HCl [From Prozac] Allergy Unknown Verified 02/01/17 23:13 Penicillins Allergy Unknown Verified 02/01/17 23:13 ED Review of Systems ROS: Stated complaint: HEADACHE Other details as noted in HPI Comment: All other systems reviewed and negative ED Past Medical Hx - Past Medical History Hx Hypertension: Yes Hx CVA: Yes (age 21) Hx Heart Attack/AMI: Yes (3 times/mild, WPW) Hx Diabetes: Yes (boardline) Hx Deep Vein Thrombosis: Yes (L 2006) Hx Arthritis: Yes Hx Headaches / Migraines: Yes Hx Seizures: Yes (in her youth) - Surgical History Additional Surgical History: breast cyst, - Social History Smoking Status: Never Smoker Substance Use Type: None, Marijuana - Medications Home Medications: Home Medications Medication Instructions Recorded Confirmed Last Taken Type ALBUTEROL Inhaler [ProAir HFA 2 puff IH QID PRN #1 inhalation 06/19/17 Unknown Rx Inhaler] Aspirin [Aspirin BABY CHEW TAB] 81 mg PO DAILY 06/19/17 06/19/17 Unknown History Ciprofloxacin HCl [Ciprofloxacin 500 mg PO Q12H #14 tab 06/19/17 Unknown Rx TAB] guaiFENesin/CODEINE [Robitussin AC] 10 ml PO TID PRN #100 ml 06/19/17 Unknown Rx Furosemide [Lasix] 20 mg PO QDAY #15 tablet 07/24/17 Unknown Rx Potassium Chloride [K-Dur] 10 meq PO QDAY #15 tablet 07/24/17 Unknown Rx oxyCODONE /ACETAMINOPHEN [Percocet 1 tab PO Q6HR PRN #10 tablet 09/03/17 Unknown Rx 5/325] ED Physical Exam - General Limitations: No Limitations General appearance: alert, in no apparent distress - Head Head exam: Present: atraumatic, normocephalic - Eye Eye exam: Present: normal appearance, PERRL, EOMI, other (visual acuity intact to finger counting, color perception, reading at a close distance). Absent: nystagmus - ENT ENT exam: Present: normal exam, normal orophraynx, mucous membranes moist, normal external ear exam - Neck Neck exam: Present: normal inspection, full ROM - Respiratory Respiratory exam: Present: normal lung sounds bilaterally. Absent: respiratory distress - Cardiovascular Cardiovascular Exam: Present: regular rate, normal rhythm, normal heart sounds. Absent: bradycardia, tachycardia, irregular rhythm, systolic murmur, diastolic murmur, rubs, gallop - GI/Abdominal GI/Abdominal exam: Present: soft, normal bowel sounds. Absent: distended, tenderness, guarding, rebound, rigid, pulsatile mass - Extremities Exam Extremities exam: Present: normal inspection, full ROM, tenderness, normal capillary refill, pedal edema, other (there is no palpable cord. There is a negative Homans sign). Absent: calf tenderness - Back Exam Back exam: Present: normal inspection, full ROM. Absent: tenderness, CVA tenderness (R), paraspinal tenderness, vertebral tenderness - Neurological Exam Neurological exam: Present: alert, oriented X3, CN II-XII intact, normal gait ( negative past pointing. Negative pronator drift. Walks with a steady gait.), other (Extraocular movements intact. Tongue midline. No facial droop. Facial sensation intact to light touch in the V1, V2, V3 distribution bilaterally. 5 and 5 strength in 4 extremities.. Sensation is intact to light touch in 4 extremities.). Absent: motor sensory deficit - Psychiatric Psychiatric exam: Present: normal affect, normal mood - Skin Skin exam: Present: warm, dry, intact, normal color. Absent: rash ED Course Vital Signs 01/04/18 01/05/18 01/05/18 22:08 06:25 06:33 Temperature 98.7 F 98.7 F Pulse Rate 80 88 Respiratory 14 19 Rate Blood Pressure 124/70 130/68 Blood Pressure [Right] O2 Sat by Pulse 100 98 Oximetry 01/05/18 01/05/18 01/05/18 06:34 07:10 08:09 Temperature 98.3 F Pulse Rate 82 Respiratory 20 18 18 Rate Blood Pressure Blood Pressure 148/64 [Right] O2 Sat by Pulse 98 99 99 Oximetry 01/05/18 01/05/18 01/05/18 09:54 11:10 11:24 Temperature 98.2 F Pulse Rate 76 75 Respiratory 16 16 18 Rate Blood Pressure Blood Pressure 173/85 162/88 [Right] O2 Sat by Pulse 99 99 Oximetry - Reevaluation(s) Reevaluation #1: 01/05/18 08:25 Differential diagnosis, including but not limited to: Acute coronary syndrome, structural cardiac disease, arrhythmia, pulmonary embolus, seizure, pseudoseizure, convulsion, intracranial hemorrhage, right lower extremity DVT Assessment and plan: 42-year-old female with a primary triage complaint of breakthrough seizure, she reports prior episodes of convulsions, but does not know if she has a formal diagnosis of seizure per se. Also incidentally endorses chest tightness for months, headache for months. Has a history of DVT. Low risk by heart score. Chest pain present for months. EKG appears to be unchanged from prior. Also endorses right lower extremity pain. Patient is a poor historian.Patient is clinically sober at this time. The cervical spine is cleared through nexus and armenian c spine rule We will treat her symptoms with IV fluids, Reglan and diphenhydramine. She will be given acetaminophen for her pain. We will obtain CT scan of the brain, x-ray of the chest, EKG 2, troponin 2, right lower extremity DVT study. Given her ambiguous history of convulsion, she will not be started on antiepileptic drugs. She will be referred to outpatient neurology, and outpatient cardiology, assuming her ER workup is unremarkable. The patient has been in the ER 4 hours without clinical decompensation or repeated convulsive event. Reevaluation #2: 01/05/18 12:09 EKG #2 is unremarkable and unchanged. CT scan of the chest shows no large pulmonary embolus. DVT study is negative. No episodes of hypoxia have been noted, no episodes of syncope or seizures have been noted. Patient has been observed in the ER for a prolonged period of time without clinical decompensation. Given her negative DVT study, normal vital signs, I think it is very unlikely that the patient has a peripheral pulmonary embolus, I do not believe the patient requires further diagnostic imaging at this time. ED Medical Decision Making - Lab Data Result diagrams: 01/04/18 23:58 01/04/18 23:58 Vital Signs 01/04/18 01/05/18 01/05/18 22:08 06:25 06:33 Temperature 98.7 F 98.7 F Pulse Rate 80 88 Respiratory 14 19 Rate Blood Pressure 124/70 130/68 Blood Pressure [Right] O2 Sat by Pulse 100 98 Oximetry 01/05/18 01/05/18 01/05/18 06:34 07:10 08:09 Temperature 98.3 F Pulse Rate 82 Respiratory 20 18 18 Rate Blood Pressure Blood Pressure 148/64 [Right] O2 Sat by Pulse 98 99 99 Oximetry Lab Results 01/04/18 01/04/18 01/04/18 Range/Units 23:58 23:58 23:58 WBC 11.3 H (4.5-11.0) K/mm3 RBC 4.48 (3.65-5.03) M/mm3 Hgb 12.0 (10.1-14.3) gm/dl Hct 36.9 (30.3-42.9) % MCV 82 (79-97) fl MCH 27 L (28-32) pg MCHC 33 (30-34) % RDW 15.6 H (13.2-15.2) % Plt Count 326 (140-440) K/mm3 Lymph % (Auto) 28.4 (13.4-35.0) % [place]oll[place] % (Auto) 7.3 (0.0-7.3) % Eos % (Auto) 2.3 (0.0-4.3) % Baso % (Auto) 0.4 (0.0-1.8) % Lymph # 3.2 (1.2-5.4) K/mm3 [place]oll[place] # 0.8 (0.0-0.8) K/mm3 Eos # 0.3 (0.0-0.4) K/mm3 Baso # 0.0 (0.0-0.1) K/mm3 Seg Neutrophils % 61.6 (40.0-70.0) % Seg Neutrophils # 7.0 (1.8-7.7) K/mm3 Sodium 140 (137-145) mmol/L Potassium 3.5 L (3.6-5.0) mmol/L Chloride 101.4 (98-107) mmol/L Carbon Dioxide 25 (22-30) mmol/L Anion Gap 17 mmol/L BUN 13 (7-17) mg/dL Creatinine 0.6 L (0.7-1.2) mg/dL Estimated GFR > 60 ml/min BUN/Creatinine Ratio 22 % Glucose 105 H (65-100) mg/dL Calcium 9.1 (8.4-10.2) mg/dL Total Bilirubin 0.30 (0.1-1.2) mg/dL AST 14 (5-40) units/L ALT 10 (7-56) units/L Alkaline Phosphatase 68 (35-129) units/L Total Protein 7.5 (6.3-8.2) g/dL Albumin 4.0 (3.9-5) g/dL Albumin/Globulin Ratio 1.1 % HCG, Qual Negative (Negative) - EKG Data -: EKG Interpreted by Me EKG shows normal: sinus rhythm, axis, intervals, QRS complexes, ST-T waves - EKG Data When compared to previous EKG there are: no significant change Interpretation: no acute changes, normal EKG, unchanged when compared t 01/05/18 08:28 Normal sinus, 80 bpm, normal intervals, normal axis, low voltage, unremarkable EKG, not a STEMI - Radiology Data Radiology results: report reviewed, image reviewed X-ray of the chest is unremarkable and within normal limits. LIVE [facility] RUSSEL MCCORMICK Female : 1975 [facility]# [id number] 01/05/18 10:17 - Radiology Dept. Note by IKE HANDY [facility] Num: [id number] : 1975 Patient Age: 42 VASCULAR LAB.PRELIMINARY REPORT. RLE VENOUS DUPLEX DONE. NO EVIDENCE OF DVT/SVT IN VESSELS VISUALIZED. Initialized on 01/05/18 10:17 - END OF NOTE Critical care attestation.: If time is entered above; I have spent that time in minutes in the direct care of this critically ill patient, excluding procedure time. ED Disposition Clinical Impression: History of convulsions, Chest wall pain Disposition: DC-01 TO HOME OR SELFCARE Is pt being admited?: No Does the pt Need Aspirin: No Condition: Good Instructions: Chest Pain (ED), Costochondritis (ED) Additional Instructions: Do not drive or operate motor vehicles for the next 6 months. Follow up with any of the listed cardiology practices within the next 3-5 days. Follow up with any of the listed neurology specialist within the next 7-10 days. Return to the ER right away with new pain, worsening pain, migration of pain, fevers, chills, lethargy, irritability, projectile vomiting, change in mental status, confusion, inability to tolerate liquid feeds. Referrals: PRIMARY CARE, [Primary Care Provider] - 3-5 Days [facility] [Provider Group] - 3-5 Days [facility] [Provider Group] - 3-5 Days HAMLET PLATT MD [Referring] - 3-5 Days MARY LOU DEGROOT MD [Staff Physician] - 3-5 Days
--- NOTE | 2018-01-05 08:07 | XRay Report ---
FINAL REPORT EXAM: XR CHEST ROUTINE 2V HISTORY: cp seizure TECHNIQUE: PA and lateral chest radiographs PRIORS: 06/18/2017 FINDINGS: No mediastinal shift. Cardiac silhouette is not enlarged. No pneumothorax, effusion, or focal pulmonary opacity. No acute skeletal finding. IMPRESSION: No focal pulmonary opacity.
[2018-01-05] MEDS ORDERED: TYLENOL PO ONE (08:28)
--- NOTE | 2018-01-05 08:30 | Cat Scan Report ---
FINAL REPORT EXAM: CT HEAD/BRAIN WO CON HISTORY: headache TECHNIQUE: CT imaging acquired through the head without intravenous contrast. Transaxial reformations are provided. PRIORS: None. FINDINGS: The ventricles, cisterns and sulci are normal. No intraparenchymal or extra-axial mass, hemorrhage, or mass effect. Kendrick and white-matter differentiation is normal. Normal spherical shape of the globes. Paranasal sinuses and mastoid air cells are clear. No skull or facial fracture visualized. IMPRESSION: No acute intracranial abnormality.
[2018-01-05 09:21] LABS: INR 0.93 (0.87-1.13)
[2018-01-05 11:25] VITALS: BP 162/88
--- NOTE | 2018-01-05 11:43 | Cat Scan Report ---
CTA CHEST: HISTORY: Chest pain, history of DVT. COMPARISON: 02/02/17. TECHNIQUE: Helical CT in 1.25mm intervals following IV contrast. Pulmonary embolus protocol. Sagittal and coronal reformatted images. Rotational MIP images. FINDINGS: Contrast bolus is slightly suboptimal. There is poor opacification of the pulmonary arteries. No large central pulmonary embolus is identified. Resolution/opacification in the distal, small pulmonary arteries is suboptimal. No gross pulmonary embolus is identified. Thyroid gland: Normal. Tracheobronchial tree: Normal. Esophagus: Normal. Heart: Normal. Pericardium: Normal. Mediastinum: Normal. Lung Adamson: normal. Pleural Spaces: Normal. Musculoskeletal: Normal. IMPRESSION: Limited exam. Suboptimal opacification of the distal, small pulmonary arteries is demonstrated. No large central PE is identified.
== END 2018-01-05 13:45 | disposition home or self-care (01) ==
LOC: ED 20:39
DX: G40.909 Epilepsy, unspecified, not intractable, without status epilepticus (principal); R07.89 Other chest pain; I10 Essential (primary) hypertension; I25.2 Old myocardial infarction; G43.909 Migraine, unspecified, not intractable, without status migrainosus; F12.10 Cannabis abuse, uncomplicated
CPT/HCPCS: 36415; 70450; 71046; 71275; 80053; 83735; 84443; 84484; 84703; 85025; 85379; 85610; 93005; 93010; 93971; 96374; 96375; 99285; J1200; J2765; J7040; Q9967

== ENCOUNTER 2018-01-22 17:34 | Inpatient (IN) | payer MEDICARE ==
[2018-01-22 18:42] LABS: Basophils # (Auto) 0.1 K/mm3 (0.0-0.1); Basophils % (Auto) 0.6 % (0.0-1.8); Eosinophils # (Auto) 0.2 K/mm3 (0.0-0.4); Eosinophils % (Auto) 1.7 % (0.0-4.3); Hematocrit 35.4 % (30.3-42.9); Hemoglobin 11.6 gm/dl (10.1-14.3); Lymphocytes # (Auto) 2.4 K/mm3 (1.2-5.4); Lymphocytes % (Auto) 23.8 % (13.4-35.0); Mean Corpuscular HGB Conc 33 % (30-34); Mean Corpuscular Hemoglobin 27 pg (28-32); Mean Corpuscular Volume 81 fl (79-97); Monocytes # (Auto) 0.7 K/mm3 (0.0-0.8); Platelet Count 316 K/mm3 (140-440); Red Blood Count 4.35 M/mm3 (3.65-5.03); Red Cell Distribution Width 15.1 % (13.2-15.2)
[2018-01-22 18:55] LABS: BUN/Creatinine Ratio 20; Blood Urea Nitrogen 8 mg/dL (7-17); Calcium 9.3 mg/dL (8.4-10.2); Hemolysis Index 4
[2018-01-22] MEDS ORDERED: TYLENOL PO ONE (19:54)
[2018-01-22] MEDS ORDERED: TORADOL IV ONE (19:54)
[2018-01-22] MEDS ORDERED: NACL 0.9% 1000 ML 1,000 ML IV ONE (19:54)
[2018-01-22] MEDS ORDERED: K-DUR PO ONE (19:55)
--- NOTE | 2018-01-22 20:41 | Emergency Department Report ---
ED Chest Pain HPI - General Chief Complaint: Chest Pain Stated Complaint: SEIZURE/WEAK Time Seen by Provider: 01/22/18 19:15 Source: patient, EMS Mode of arrival: Stretcher Limitations: No Limitations - History of Present Illness Initial Comments: Over the past couple months, patient has had increasing seizure frequency. She used to have seizures as a teenager, but they stopped and they took her off her medicine. It seems like they have restarted. She had 3 seizures today. They were all witnessed by her family. The seizures were generalized with a positive loss of consciousness. No incontinence. No abortive was needed to stop either the seizures. Patient said after each seizure today, she developed substernal chest pain that is constant, nonradiating, sharp, pleuritic, and nonexertional. Patient is not on control. No history of DVTs or PE. Nonsmoker. Denies drug use. Social drinker. No family history of ACS. Patient states that she does not have a family doctor and is currently on Medicaid. - Related Data Home Medications Medication Instructions Recorded Confirmed Last Taken Aspirin [Aspirin BABY CHEW TAB] 81 mg PO DAILY 06/19/17 06/19/17 Unknown Previous Rx's Medication Instructions Recorded Last Taken Type ALBUTEROL Inhaler [ProAir HFA 2 puff IH QID PRN #1 inhalation 06/19/17 Unknown Rx Inhaler] Ciprofloxacin HCl [Ciprofloxacin 500 mg PO Q12H #14 tab 06/19/17 Unknown Rx TAB] guaiFENesin/CODEINE [Robitussin AC] 10 ml PO TID PRN #100 ml 06/19/17 Unknown Rx Furosemide [Lasix] 20 mg PO QDAY #15 tablet 07/24/17 Unknown Rx Potassium Chloride [K-Dur] 10 meq PO QDAY #15 tablet 07/24/17 Unknown Rx oxyCODONE /ACETAMINOPHEN [Percocet 1 tab PO Q6HR PRN #10 tablet 09/03/17 Unknown Rx 5/325] Allergies Allergy/AdvReac Type Severity Reaction Status Date / Time fluoxetine HCl [From Prozac] Allergy Unknown Verified 02/01/17 23:13 Penicillins Allergy Unknown Verified 02/01/17 23:13 Heart Score - HEART Score History: Slightly suspicious EKG: Normal Age: < 45 Risk factors: 1-2 risk factors Troponin: < normal limit HEART Score: 1 ED Review of Systems ROS: Stated complaint: SEIZURE/WEAK Other details as noted in HPI Comment: All other systems reviewed and negative Respiratory: shortness of breath Cardiovascular: chest pain Neurological: other (seizure) ED Past Medical Hx - Past Medical History Previous Medical History?: Yes Hx Hypertension: Yes Hx CVA: Yes (age 21) Hx Heart Attack/AMI: Yes (3 times/mild, WPW) [facility]x [facility] [place] Hx Deep Vein Thrombosis: Yes (L 2006) Hx Arthritis: Yes Hx Headaches / Migraines: Yes Hx Seizures: Yes (in her youth) - Surgical History Past Surgical History?: Yes Additional Surgical History: breast cyst, - Social History Smoking Status: Former Smoker Substance Use Type: Alcohol - Medications Home Medications: Home Medications Medication Instructions Recorded Confirmed Last Taken Type ALBUTEROL Inhaler [ProAir HFA 2 puff IH QID PRN #1 inhalation 06/19/17 Unknown Rx Inhaler] Aspirin [Aspirin BABY CHEW TAB] 81 mg PO DAILY 06/19/17 06/19/17 Unknown History Ciprofloxacin HCl [Ciprofloxacin 500 mg PO Q12H #14 tab 06/19/17 Unknown Rx TAB] guaiFENesin/CODEINE [Robitussin AC] 10 ml PO TID PRN #100 ml 06/19/17 Unknown Rx Furosemide [Lasix] 20 mg PO QDAY #15 tablet 07/24/17 Unknown Rx Potassium Chloride [K-Dur] 10 meq PO QDAY #15 tablet 07/24/17 Unknown Rx oxyCODONE /ACETAMINOPHEN [Percocet 1 tab PO Q6HR PRN #10 tablet 09/03/17 Unknown Rx 5/325] ED Physical Exam - General Limitations: No Limitations General appearance: alert, in no apparent distress - Head Head exam: Present: atraumatic, normocephalic - Eye Eye exam: Present: normal appearance - ENT ENT exam: Present: mucous membranes moist - Neck Neck exam: Present: normal inspection - Respiratory Respiratory exam: Present: normal lung sounds bilaterally. Absent: respiratory distress - Cardiovascular Cardiovascular Exam: Present: regular rate, normal rhythm. Absent: systolic murmur, diastolic murmur, rubs, gallop - GI/Abdominal GI/Abdominal exam: Present: soft, normal bowel sounds. Absent: tenderness - Extremities Exam Extremities exam: Present: normal inspection - Back Exam Back exam: Present: normal inspection - Neurological Exam Neurological exam: Present: alert, oriented X3. Absent: motor sensory deficit - Psychiatric Psychiatric exam: Present: normal affect, normal mood - Skin Skin exam: Present: warm, dry, intact, normal color. Absent: rash ED Course Vital Signs 01/22/18 01/22/18 01/22/18 17:36 18:13 18:30 Temperature 99.4 F Pulse Rate 90 85 85 Respiratory 16 16 18 Rate Blood Pressure 158/53 132/79 141/82 O2 Sat by Pulse 97 96 Oximetry 01/22/18 19:00 Temperature Pulse Rate 78 Respiratory 22 Rate Blood Pressure 139/84 O2 Sat by Pulse 96 Oximetry ED Medical Decision Making - Lab Data Result diagrams: 01/22/18 18:25 01/22/18 18:25 - EKG Data -: EKG Interpreted by Me EKG shows normal: sinus rhythm, axis, intervals, QRS complexes, ST-T waves Rate: normal - EKG Data Interpretation: no acute changes - Radiology Data Radiology results: image reviewed - Medical Decision Making 42-year-old female with past medical history of seizures and self-reported history of minor heart attacks and TIA that presents to the ER with seizures and chest pain. Patient is alert and oriented 3 on presentation. Vital signs are stable. Patient is well-appearing, at her neurologic baseline. Labwork unremarkable. EKG is nonischemic. Troponins negative 1. Low risk for heart score. Suspicion for ACS. I'm concerned by the patient's increased seizing frequency over the past couple months and her lack of insurance to be out of find a provider to help her manage the seizures. I believe that she wants admissions for neurology consult to evaluate for possible antiepileptics. - Differential Diagnosis epileptic vs nonepileptic seizures, electrolyte abnormalities, hypoglycemia Critical care attestation.: If time is entered above; I have spent that time in minutes in the direct care of this critically ill patient, excluding procedure time. ED Disposition Clinical Impression: Seizure, Chest pain, Hypokalemia Disposition: OP ADMIT IP TO THIS HOSP Is pt being admited?: Yes Does the pt Need Aspirin: No Condition: Stable Instructions: Chest Pain (ED) Referrals: PRIMARY CARE, [Primary Care Provider] - 3-5 Days
--- NOTE | 2018-01-22 21:12 | Cat Scan Report ---
FINAL REPORT PROCEDURE: CT HEAD/BRAIN WO CON TECHNIQUE: Computerized tomography of the head was performed without contrast material. HISTORY: recurrent seizures COMPARISON: 01/05/2018 FINDINGS: Skull and scalp: Normal. Paranasal sinuses: Normal. Ventricles and subarachnoid spaces: Normal. Cerebrum: No evidence of hemorrhage, acute infarction or mass . Cerebellum and brainstem: No evidence of hemorrhage, acute infarction or mass. Vasculature: Normal. Comments: None. IMPRESSION: Normal Examination
[2018-01-22] MEDS ORDERED: ATIVAN IV PRN (23:02)
--- NOTE | 2018-01-22 23:03 | History and Physical Report ---
History of Present Illness Date of examination: 01/22/18 History of present illness: 42 -year-old woman with a history of hypertension, previous CVA and coronary artery disease, prediabetes, WPW, seizure, sleep apnea comes emergency room today because she had 3 seizures at home. She stated that she had seizures as a teenager and was taken off medication in her early 30s. She started having seizures 3months ago, they have now become more frequent Review of systems Constitutional: no weight loss, chills, fever Ears, eyes, nose, mouth and throat: no nasal congestion, no nasal discharge, no sinus pressure, no vision change, no red eye. Neck: No neck pain or rigidity. Cardiovascular: no chest pain, palpitations Respiratory: no cough, shortness of breath Gastrointestinal: no abdominal pain hematochezia Genitourinary : no frequency , no hematuria Musculoskeletal: no joint swelling or muscle ache Integumentary: no rash, no pruritis Neurological: no parathesias, no numbness, no focal weakness Endocrine: no cold or heat intolerance, no polyuria or polydipsia Hematologic/Lymphatic: no easy bruising, no easy bleeding, no gland swelling Allergic/Immunologic: no urticaria, no angioedema. PAST MEDICAL HISTORY:hypertension, previous CVA and coronary artery disease, prediabetes, WPW, seizure, sleep apnea PAST SURGICAL HISTORY: Cyst removed from breast SOCIAL HISTORY: + alcohol, no drugs, tobacco FAMILY HISTORY: Hypertension Medications and Allergies Allergies Allergy/AdvReac Type Severity Reaction Status Date / Time fluoxetine HCl [From Prozac] Allergy Unknown Verified 02/01/17 23:13 Penicillins Allergy Unknown Verified 02/01/17 23:13 Home Medications Medication Instructions Recorded Confirmed Last Taken Type ALBUTEROL Inhaler [ProAir HFA 2 puff IH QID PRN #1 inhalation 06/19/17 Unknown Rx Inhaler] Aspirin [Aspirin BABY CHEW TAB] 81 mg PO DAILY 06/19/17 06/19/17 Unknown History Ciprofloxacin HCl [Ciprofloxacin 500 mg PO Q12H #14 tab 06/19/17 Unknown Rx TAB] guaiFENesin/CODEINE [Robitussin AC] 10 ml PO TID PRN #100 ml 06/19/17 Unknown Rx Furosemide [Lasix] 20 mg PO QDAY #15 tablet 07/24/17 Unknown Rx Potassium Chloride [K-Dur] 10 meq PO QDAY #15 tablet 07/24/17 Unknown Rx oxyCODONE /ACETAMINOPHEN [Percocet 1 tab PO Q6HR PRN #10 tablet 09/03/17 Unknown Rx 5/325] Exam - Physical Exam Narrative exam: Gen. appearance: Patient lying in bed, no apparent distress HEENT: Normocephalic, atraumatic, pupils equally round and reactive to light, extraocular movement intact, and no sclericterus,. No JVD or thyromegaly or nodule,neck supple, no carotid bruit ,mucous membranes moist, no exudate or erythema Heart: S1, S2, regular rate and rhythm Lungs: Clear bilaterally, breathing comfortable Abdomen: Positive bowel sounds, non-tender, nondistended, no organomegaly Extremity:no edema cyanosis, clubbing Skin: no rash, dry, warm Neuro: Oriented 3, cranial nerves II-12 intact, speech is fluent, motor and sensory intact - Constitutional Vitals: Temp Pulse Resp BP Pulse Ox 99.4 F 83 18 147/107 100 01/22/18 17:36 01/22/18 22:30 01/22/18 22:30 01/22/18 22:30 01/22/18 22:30 Results - Labs CBC & Chem 7: 01/22/18 18:25 01/22/18 18:25 Labs: Abnormal lab results 01/22/18 01/22/18 01/22/18 Range/Units 17:55 18:25 18:25 MCH 27 L (28-32) pg Potassium 3.2 L (3.6-5.0) mmol/L Creatinine 0.4 L (0.7-1.2) mg/dL Glucose 101 H (65-100) mg/dL POC Glucose 119 H (70-105) - Imaging and Cardiology CT Scan - head: report reviewed Assessment and Plan Assessment Seizures, acute on chronic hypertension previous CVA and coronary artery disease prediabetes, WPW sleep apnea Plan Admit medicine Start IV Ativan as needed for seizure activity, consult neurology Continue appropriate outpatient medications Description
[2018-01-23] MEDS ORDERED: SODIUM CHLORIDE FLUSH SYRINGE 10 ML IV PRN (00:51)
[2018-01-23] MEDS ORDERED: ZOFRAN IV PRN (00:51)
[2018-01-23 08:14] LABS: Basophils # (Auto) 0.1 K/mm3 (0.0-0.1); Eosinophils # (Auto) 0.2 K/mm3 (0.0-0.4); Hematocrit 35.6 % (30.3-42.9); Hemoglobin 11.8 gm/dl (10.1-14.3); Lymphocytes # (Auto) 2.1 K/mm3 (1.2-5.4); Lymphocytes % (Auto) 28.5 % (13.4-35.0); Mean Corpuscular HGB Conc 33 % (30-34); Mean Corpuscular Hemoglobin 28 pg (28-32); Mean Corpuscular Volume 84 fl (79-97); Monocytes # (Auto) 0.5 K/mm3 (0.0-0.8); Monocytes % (Auto) 7.1 % (0.0-7.3); Platelet Count 294 K/mm3 (140-440); Red Blood Count 4.26 M/mm3 (3.65-5.03); Red Cell Distribution Width 15.4 % (13.2-15.2)
[2018-01-23 08:30] LABS: BUN/Creatinine Ratio 27; Blood Urea Nitrogen 8 mg/dL (7-17); Calcium 8.5 mg/dL (8.4-10.2); Hemolysis Index 19
[2018-01-23] MEDS: BABY ASPIRIN PO SCH (09:06)
[2018-01-23] MEDS: TYLENOL PO PRN ×2 (09:13→17:14)
[2018-01-23] MEDS: LOVENOX SUB-Q SCH (09:16)
[2018-01-23] MEDS ORDERED: LOVENOX SUB-Q SCH (10:00)
[2018-01-23] MEDS ORDERED: LASIX PO SCH (10:00)
--- NOTE | 2018-01-23 14:52 | Progress Note ---
Assessment and Plan Seizures vs pseudoseizure hypertension, stable previous ? CVA and coronary artery disease prediabetes, WPW sleep apnea - Started on IV Ativan as needed for seizure activity, consult neurology - Continue appropriate outpatient medications - will place on keppra iv for now, follow EEG result Brief History: 42 -year-old woman with a history of hypertension, previous CVA and coronary artery disease, prediabetes, WPW, seizure, sleep apnea comes emergency room today because she had 3 seizures at home. Hospitalist Physical exam: GENERAL: well-developed obese AAF lying on bed appeared to be in no discomfort. HEENT: Normocephalic. Atraumatic. No conjunctival congestion or icterus. Patient has moist mucous membranes. NECK: Supple. Trachea midline. CHEST/LUNGS: Clear to auscultated bilaterally, breathing nonlabored. No wheezes crackles or rhonchi. HEART/CARDIOVASCULAR: Regular in rate and rhythm. S1 and S2 positive. ABDOMEN: Abdomen is soft, nontender. Patient has normal bowel sounds. SKIN: There is no rash. Warm and dry. NEURO: No focal motor deficit. Follows command. MUSCULOSKELETAL: No joint effusion or tenderness. EXTRIMITY: No edema, no cyanosis or clubbing. PSYCH: Cooperative. Subjective Date of service: 01/23/18 Interval history: Patient seen and examined. Medical records and medication list reviewed. No acute event overnight noted by the RN. Patient denies any chest pain or difficulty breathing. Patient is tolerating diet. states not on seizure medication since her 30s Objective - Constitutional Vitals: Vital Signs - 12hr 01/23/18 01/23/18 01/23/18 05:11 08:38 12:47 Temperature 98.5 F 97.9 F Pulse Rate 57 L 77 Respiratory 20 20 Rate Blood Pressure 135/86 139/83 O2 Sat by Pulse 100 100 99 Oximetry - Labs CBC & Chem 7: 01/23/18 07:26 01/23/18 07:26 Labs: Abnormal lab results 01/22/18 01/22/18 01/22/18 Range/Units 17:55 18:25 18:25 MCH 27 L (28-32) pg RDW (13.2-15.2) % Potassium 3.2 L (3.6-5.0) mmol/L Carbon Dioxide (22-30) mmol/L Creatinine 0.4 L (0.7-1.2) mg/dL Glucose 101 H (65-100) mg/dL POC Glucose 119 H (70-105) 01/23/18 01/23/18 Range/Units 07:26 07:26 MCH (28-32) pg RDW 15.4 H (13.2-15.2) % Potassium 3.5 L (3.6-5.0) mmol/L Carbon Dioxide 21 L (22-30) mmol/L Creatinine 0.3 L (0.7-1.2) mg/dL Glucose 112 H (65-100) mg/dL POC Glucose (70-105)
[2018-01-23] MEDS: KEPPRA 750 MG in NACL 0.9% 100 ML IV SCH ×2 (15:50→22:51)
[2018-01-23] MEDS: SODIUM CHLORIDE FLUSH SYRINGE 10 ML IV SCH ×2 (15:55→23:44)
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
[2018-01-23] MEDS ORDERED: PROVENTIL IH PRN (20:35)
[2018-01-23] MEDS: NEURONTIN PO SCH (22:51)
[2018-01-23 23:55] LABS: BUN/Creatinine Ratio 20; Blood Urea Nitrogen 8 mg/dL (7-17); Calcium 8.7 mg/dL (8.4-10.2); Hemolysis Index 203
[2018-01-24] MEDS: TYLENOL PO PRN ×2 (00:57→08:34)
[2018-01-24] MEDS: NEURONTIN PO SCH ×3 (06:39→21:44)
[2018-01-24] MEDS: BABY ASPIRIN PO SCH (09:50)
[2018-01-24] MEDS: LOVENOX SUB-Q SCH ×2 (09:50→09:52)
[2018-01-24] MEDS: SODIUM CHLORIDE FLUSH SYRINGE 10 ML IV SCH ×3 (09:53→22:31)
[2018-01-24] MEDS: KEPPRA 750 MG in NACL 0.9% 100 ML IV SCH (10:51)
--- NOTE | 2018-01-24 12:04 | Discharge Summary ---
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 CVA and coronary artery disease - no clear history, not on any home meds - states she does not have any PCP /WPW- ?? - troponin normal, no cardiac complaints /Sleep apnea, need outpt sleep study - states she was on CPAP but now she does not have the machine /Peripheral neuropathy, started on neurontin Brief History: 42 -year-old woman with a history of hypertension, previous ? CVA and coronary artery disease, ? WPW, seizure, sleep apnea comes emergency room because she had 3 seizures at home. Hospitalist Physical exam: GENERAL: well-developed obese AAF lying on bed appeared to be in no discomfort. HEENT: Normocephalic. Atraumatic. No conjunctival congestion or icterus. Patient has moist mucous membranes. NECK: Supple. Trachea midline. CHEST/LUNGS: Clear to auscultated bilaterally, breathing nonlabored. No wheezes crackles or rhonchi. HEART/CARDIOVASCULAR: Regular in rate and rhythm. S1 and S2 positive. ABDOMEN: Abdomen is soft, nontender. Patient has normal bowel sounds. SKIN: There is no rash. Warm and dry. NEURO: No focal motor deficit. Follows command. MUSCULOSKELETAL: No joint effusion or tenderness. EXTRIMITY: No edema, no cyanosis or clubbing. PSYCH: Cooperative. Disposition: DC-01 TO HOME OR SELFCARE Time spent for discharge: 32 minutes Core Measure Documentation - Palliative Care Palliative Care/ Comfort Measures: Not Applicable - Core Measures Any of the following diagnoses?: none Exam - Constitutional Vitals: Temp Pulse Resp BP Pulse Ox 98.6 F 83 20 143/81 99 01/24/18 05:09 01/24/18 05:01/24/18 05:09 01/24/18 05:09 01/24/18 05:09 Plan Activity: advance as tolerated, no driving until cleared by PCP (No driving for 6 months) Weight Bearing Status: Weight Bear as Tolerated Additional Instructions: f/u outpt with neurology and outpt EEG Follow up with: PRIMARY CARE,MD [Primary Care Provider] - 3-5 Days Prescriptions: ALBUTEROL Inhaler [ProAir HFA Inhaler] 2 puff IH QID PRN 30 Days #1 inhalation PRN Reason: Shortness Of Breath Aspirin [Aspirin BABY CHEW TAB] 81 mg PO DAILY #30 tab.chew Butalb/Acetamin/Caff 50-325-40 [Fioricet] 1 tab PO Q4H PRN #20 tablet PRN Reason: Headache Gabapentin [Neurontin] 100 mg PO Q8HR #30 capsule levETIRAcetam [Keppra TAB] 500 mg PO BID #60 tablet
--- NOTE | 2018-01-24 12:10 | Event Note ---
Date: 01/24/18 Discussed with the RN about the event in the am. patient woke up and asked for help to go to rest room. While sitting on the commode she didn't get up after she was done and was looking upwards and was wobbling. She was following commends that time and was able to walk and never lost consciousness. Then she complained that she could not see anything, but after few seconds she stated that she could see again.
[2018-01-24] MEDS: FIORICET PO PRN ×3 (13:22→21:44)
[2018-01-24] MEDS: KEPPRA PO SCH (21:45)
[2018-01-24] MEDS ORDERED: KEPPRA PO SCH (22:00)
[2018-01-25] MEDS: NEURONTIN PO SCH ×3 (06:35→21:08)
--- NOTE | 2018-01-25 08:16 | Progress Note ---
Assessment and Plan Seizures vs pseudoseizure - d/luke IV Ativan, - consulted neurology, had EEG today hypertension, stable - will do hydralazine as needed previous ?? CVA and coronary artery disease - no clear history, not on any home meds - states she does not have any PCP WPW- ?? - troponin normal, no cardiac complaints Sleep apnea, need outpt sleep study - states she was on cpap but now she doesnot have the machine Peripheral neuropathy, started on neurontin Brief History: 42 -year-old woman with a history of hypertension, previous ? CVA and coronary artery disease, ? WPW, seizure, sleep apnea comes emergency room because she had 3 seizures at home. Hospitalist Physical exam: GENERAL: well-developed obese AAF lying on bed appeared to be in no discomfort. HEENT: Normocephalic. Atraumatic. No conjunctival congestion or icterus. Patient has moist mucous membranes. NECK: Supple. Trachea midline. CHEST/LUNGS: Clear to auscultated bilaterally, breathing nonlabored. No wheezes crackles or rhonchi. HEART/CARDIOVASCULAR: Regular in rate and rhythm. S1 and S2 positive. ABDOMEN: Abdomen is soft, nontender. Patient has normal bowel sounds. SKIN: There is no rash. Warm and dry. NEURO: No focal motor deficit. Follows command. MUSCULOSKELETAL: No joint effusion or tenderness. EXTRIMITY: No edema, no cyanosis or clubbing. PSYCH: Cooperative. Subjective Date of service: 01/24/18 Interval history: Patient seen and examined. Medical records and medication list reviewed. Patient denies any chest pain discussed with RN and reviewed her note about morning event discussed with neurology, no further workup recommended has multiple complaints, (headache, weakness, SOB, burning sensation allover, back pain, knee/ankle pain) Patient is tolerating diet. Was planned for discharge today and was refereed for outpt follow up But she appealed for her discharge Objective - Constitutional Vitals: Vital Signs - 12hr 01/24/18 01/24/18 01/24/18 21:11 21:44 22:00 Temperature Pulse Rate Respiratory 18 18 Rate Respiratory 18 Rate [chest] Blood Pressure O2 Sat by Pulse 100 100 Oximetry 01/24/18 01/24/18 01/25/18 22:44 23:15 05:48 Temperature 98.0 F 98.6 F Pulse Rate 80 72 Respiratory 18 19 18 Rate Respiratory Rate [chest] Blood Pressure 152/83 130/78 O2 Sat by Pulse 91 99 Oximetry - Labs CBC & Chem 7: 01/23/18 07:26 01/23/18 23:22
[2018-01-25] MEDS: BABY ASPIRIN PO SCH (09:32)
[2018-01-25] MEDS: LOVENOX SUB-Q SCH (09:32)
[2018-01-25] MEDS: KEPPRA PO SCH ×2 (09:32→21:08)
[2018-01-25] MEDS: SODIUM CHLORIDE FLUSH SYRINGE 10 ML IV SCH ×2 (09:33→21:10)
--- NOTE | 2018-01-25 10:26 | Electroencephalogram Report ---
Electroencephalogram EEG Date of exam: 01/24/18 History: eyes rolling back, says loss of awareness, no postictal change, probable pseudoseizures Description: EEG preliminary findings: 21 min tracing, 10 Hz alpha activity in the posterior leads and some anterior beta activity. Multiple noisy channels and EMG noise, tech could not fix some due to soreness of scalp. Refused hyperventilation, no photic driving but only done for a few seconds before patient asked that photic be stopped. Some stage II sleep with spindles and K complexes. No epileptiform activity. Interpretation: EEG preliminary reading: noisy but normal waking and sleep EEG.
--- NOTE | 2018-01-25 14:29 | Progress Note ---
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 CVA and coronary artery disease - no clear history, not on any home meds - states she does not have any PCP /WPW- ?? - troponin normal, no cardiac complaints /Sleep apnea, need outpt sleep study - states she was on CPAP but now she does not have the machine /Peripheral neuropathy, started on neurontin Brief History: 42 -year-old woman with a history of hypertension, previous ? CVA and coronary artery disease, ? WPW, seizure, sleep apnea comes emergency room because she had 3 seizures at home. Hospitalist Physical exam: GENERAL: well-developed obese AAF lying on bed appeared to be in no discomfort. HEENT: Normocephalic. Atraumatic. No conjunctival congestion or icterus. Patient has moist mucous membranes. NECK: Supple. Trachea midline. CHEST/LUNGS: Clear to auscultated bilaterally, breathing nonlabored. No wheezes crackles or rhonchi. HEART/CARDIOVASCULAR: Regular in rate and rhythm. S1 and S2 positive. ABDOMEN: Abdomen is soft, nontender. Patient has normal bowel sounds. SKIN: There is no rash. Warm and dry. NEURO: No focal motor deficit. Follows command. MUSCULOSKELETAL: No joint effusion or tenderness. EXTRIMITY: No edema, no cyanosis or clubbing. PSYCH: Cooperative. Subjective Date of service: 01/25/18 Interval history: Patient seen and examined. Medical records and medication list reviewed. discussed with neurology, no further workup recommended Patient is tolerating diet. Was planned for discharge, But she appealed for her discharge Objective - Constitutional Vitals: Vital Signs - 12hr 01/25/18 01/25/18 05:48 11:47 Temperature 98.6 F 98.6 F Pulse Rate 72 86 Respiratory 18 22 Rate Blood Pressure 130/78 124/71 O2 Sat by Pulse 99 98 Oximetry - Labs CBC & Chem 7: 01/23/18 07:26 01/23/18 23:22
[2018-01-25] MEDS: FIORICET PO PRN (21:08)
[2018-01-26] MEDS: NEURONTIN PO SCH (06:42)
[2018-01-26 06:54] VITALS: BP 155/84
[2018-01-26] MEDS: BABY ASPIRIN PO SCH (09:15)
[2018-01-26] MEDS: KEPPRA PO SCH (09:15)
[2018-01-26] MEDS: LOVENOX SUB-Q SCH ×2 (09:16→09:21)
[2018-01-26] MEDS: TYLENOL PO PRN (10:21)
== END 2018-01-26 10:54 | disposition home or self-care (01) | DRG 101 ==
LOC: ED 17:34 → 3A 23:02
PROVIDERS: ADMIT Internal Medicine; ATTEND Internal Medicine
PROC: 5A09357 Assistance with Respiratory Ventilation, Less than 24 Consecutive Hours, Continuous Positive Airway Pressure (ICD-10-PCS; 2018-01-23)
PROC: 4A033R1 Measurement of Arterial Saturation, Peripheral, Percutaneous Approach (ICD-10-PCS; principal; 2018-01-24)
PROC: 5A09357 Assistance with Respiratory Ventilation, Less than 24 Consecutive Hours, Continuous Positive Airway Pressure (ICD-10-PCS; 2018-01-25)
DX: R56.9 Unspecified convulsions (principal); I10 Essential (primary) hypertension; I25.10 Atherosclerotic heart disease of native coronary artery without angina pectoris; I45.6 Pre-excitation syndrome; G47.30 Sleep apnea, unspecified; Z88.0 Allergy status to penicillin; Z88.8 Allergy status to other drugs, medicaments and biological substances; Z79.82 Long term (current) use of aspirin; Z86.73 Personal history of transient ischemic attack (TIA), and cerebral infarction without residual deficits; Z87.891 Personal history of nicotine dependence; I25.2 Old myocardial infarction; E87.6 Hypokalemia; Z82.49 Family history of ischemic heart disease and other diseases of the circulatory system; R73.03 Prediabetes; Z83.3 Family history of diabetes mellitus; Z80.8 Family history of malignant neoplasm of other organs or systems; F45.9 Somatoform disorder, unspecified; G62.9 Polyneuropathy, unspecified; R07.89 Other chest pain
CPT/HCPCS: 36415; 36600; 70450; 80048; 82962; 84484; 84703; 85025; 93005; 93010; 94640; 94660; 94760; 95819; G8978-GP; G8979-GP; G8980-GP; J1650; J1885; J1953; J2060; J2405; J7030

== ENCOUNTER 2018-01-31 12:24 | Emergency (ER) | payer MEDICARE ==
[2018-01-31 13:29] LABS: INR 0.91 (0.87-1.13)
[2018-01-31 13:30] LABS: Partial Thromboplastin Time 27.5 Sec. (24.2-36.6)
[2018-01-31 13:31] LABS: Basophils # (Auto) 0.1 K/mm3 (0.0-0.1); Basophils % (Auto) 0.7 % (0.0-1.8); Eosinophils # (Auto) 0.1 K/mm3 (0.0-0.4); Eosinophils % (Auto) 1.5 % (0.0-4.3); Hematocrit 38.2 % (30.3-42.9); Hemoglobin 12.9 gm/dl (10.1-14.3); Lymphocytes # (Auto) 2.2 K/mm3 (1.2-5.4); Lymphocytes % (Auto) 25.3 % (13.4-35.0); Mean Corpuscular HGB Conc 34 % (30-34); Mean Corpuscular Hemoglobin 28 pg (28-32); Mean Corpuscular Volume 82 fl (79-97); Monocytes # (Auto) 0.5 K/mm3 (0.0-0.8); Monocytes % (Auto) 6.2 % (0.0-7.3); Platelet Count 326 K/mm3 (140-440); Red Blood Count 4.64 M/mm3 (3.65-5.03)
[2018-01-31 13:54] LABS: BUN/Creatinine Ratio 24; Blood Urea Nitrogen 12 mg/dL (7-17); Calcium 8.6 mg/dL (8.4-10.2); Hemolysis Index 19
[2018-01-31] MEDS ORDERED: TETRACAINE 0.5% ONE ×2 (14:51→16:56)
--- NOTE | 2018-01-31 15:09 | Cat Scan Report ---
CT HEAD WITHOUT CONTRAST: HISTORY: Vision changes to the left eye. TECHNIQUE: Sequential 2.5mm CT images. COMPARISON: 01/22/18. FINDINGS: Cerebral Parenchyma: Within normal limits. Cerebellum: Within normal limits. Brainstem: Within normal limits. Ventricles: Normal. Sella: Normal. Extra-axial spaces: Normal. Basal Cisterns: Normal. Intracranial Hemorrhage: None. Midline Shift: None. Calvarium: Normal. Sinuses: Normal. Mastoid Air Cells: Normal. Visualized Orbits: Normal. IMPRESSION: Cranial CT scan within normal limits. No change since 01/22/18.
--- NOTE | 2018-01-31 15:18 | Emergency Department Report ---
Chief Complaint: Eye Problems Stated Complaint: EYE PAIN/CHECK UP Time Seen by Provider: 01/31/18 14:32 - HPI History of Present Illness: 42-year-old female past medical history multiple medical problems presents to the ED for "" left eye pain and blurry vision since last night. Patient is emotionally labile is awake alert and oriented 3. States she is experiencing left-sided headache with associated blurry vision. Patient denies fevers or chills. States she was just released from hospital 2-3 days ago for seizures. Patient is irate and very emotional, states she has multiple issues at home involving her children and grandchildren. Patient is ranting without stopping and does not let me interrupt her speech. - ROS Review of Systems: History of seizures recently discharged from hospital for seizures, complaining of left-sided blurred vision and eye pain - Exam Vital Signs: Vital Signs 01/31/18 12:34 Temperature 98.9 F Pulse Rate 81 Respiratory 18 Rate Blood Pressure 121/77 O2 Sat by Pulse 98 Oximetry Physical Exam: There is no corneal abrasion on fluorescein stain. Slightly decreased vision via confrontation by peripheral hurd. Intraocular pressure approximately 27, 23 left eye when I checked with Fortino-Pen. MSE screening note: Focused history and physical exam performed. Due to findings the following was ordered: Screening Assessment/Plan/Differential Dx: Left eye pain, blurry vision, seizures versus pseudoseizures 1- This initial assessment/diagnostic orders/clinical plan/ treatment(s) is/are subject to change based on pt's health status, clinical progression and re- assessment by fellow clinical providers in the ED. Further treatment and workup at subsequent clinical provers discretion. Patient/guardians urged not to elope from ED as their condition may be serious if not clinically assessed and managed. 2-immediately after my Fortino-Pen exam patient stated that she felt strange and began rolling her eyes and to the back of her head and shaking her face. Patient stopped being verbally responsive. I immediately informed charge nurse and up to as the patient to the main ED for further evaluation. After approximately 4-5 minutes of this behavior patient's became lucid and stated that she did not know what had just happened. I suspect the patient may have just had a seizure or pseudoseizure 3-there is no evidence of acute angle glaucoma via Fortino-Pen exam, intraocular pressure less than 30 times to left eye 4- I checked patient's vital signs after moving her to mainly the room. Blood pressure 157/68, oxygen 100%, heart rate 79, respiratory rate 18, temperature 98.6 oral at 3:18 PM. At this time patient was fully lucid and able to follow commands. ED Medical Decision Making - Lab Data Result diagrams: 01/31/18 12:53 01/31/18 12:53 ED Disposition for MSE Condition: Stable Referrals: PRIMARY CARE, [Primary Care Provider] - 3-5 Days
--- NOTE | 2018-01-31 16:41 | Emergency Department Report ---
HPI - General Chief Complaint: Eye Problems Time Seen by Provider: 01/31/18 14:32 - HPI HPI: Room 6 The patient is a 42-year-old female presenting with a chief complaint of left eye redness and pain. The patient states last night she she noticed her left eye was "bloodshot" and had pain. Patient denies any preceding trauma or fever. The patient states her vision is slightly blurry. The patient came to the ED and states her pain improved after being given tetracaine. Patient now complains of left periorbital pain. Location: Left eye Duration: [See above] Quality: Pain Severity: Periorbital pain 04/24 Modifying factors: [see above] Context: [see above] Mode of transportation: Unknown ED Past Medical Hx - Past Medical History Hx Hypertension: Yes Hx CVA: Yes (age 21) Hx Heart Attack/AMI: Yes (3 times/mild, WPW) Hx [facility]: [facility] Hx Deep Vein Thrombosis: Yes (L 2006) Hx Arthritis: Yes Hx Headaches / Migraines: Yes Hx Seizures: Yes (in her youth) Additional medical history: neuropathy - Surgical History Past Surgical History?: Yes Hx Breast Surgery: Yes (cyst removed) Additional Surgical History: breast cyst, - Family History Family history: no significant - Social History Smoking Status: Former Smoker (none for over 20 years) Substance Use Type: None (denies illicit drug use), Alcohol (occasional) - Medications Home Medications: Home Medications Medication Instructions Recorded Confirmed Last Taken Type ALBUTEROL Inhaler [ProAir HFA 2 puff IH QID PRN 30 Days #1 01/24/18 Unknown Rx Inhaler] inhalation Aspirin [Aspirin BABY CHEW TAB] 81 mg PO DAILY #30 tab.chew 01/24/18 Unknown Rx Butalb/Acetamin/Caff 50-325-40 1 tab PO Q4H PRN #20 tablet 01/24/18 Unknown Rx [Fioricet] Gabapentin [Neurontin] 100 mg PO Q8HR #30 capsule 01/24/18 Unknown Rx levETIRAcetam [Keppra TAB] 500 mg PO BID #60 tablet 01/24/18 Unknown Rx ED Review of Systems ROS: Stated complaint: EYE PAIN/CHECK UP Other details as noted in HPI Constitutional: denies: fever Eyes: eye pain, vision change ENT: denies: ear pain Respiratory: no symptoms reported Cardiovascular: denies: chest pain Gastrointestinal: denies: abdominal pain Genitourinary: denies: dysuria Musculoskeletal: denies: back pain Skin: denies: change in color Neurological: denies: headache Physical Exam - Physical Exam Vital Signs: Vital Signs 01/31/18 12:34 Temperature 98.9 F Pulse Rate 81 Respiratory 18 Rate Blood Pressure 121/77 O2 Sat by Pulse 98 Oximetry Physical Exam: GENERAL: The patient is well-developed well-nourished female lying on stretcher resting not appear to be in acute distress. [] HEENT: Normocephalic. Atraumatic. Extraocular motions are intact. Patient has moist mucous membranes. Left sclera slightly injected. Left fundus clear. Fortino-Pen OS 9, 11, 6, 50, 31, 29. Visual acuity OD 20/40, OS 20/100, both eyes20/50 NECK: Supple. Trachea midline CHEST/LUNGS: Clear to auscultation. There is no respiratory distress noted. HEART/CARDIOVASCULAR: Regular. There is no tachycardia. There is no gallop rub or murmur. ABDOMEN: Abdomen is soft, nontender. Patient has normal bowel sounds. There is no abdominal distention. SKIN: There is no rash. There is no diaphoresis. NEURO: The patient is awake, alert, and oriented. The patient is cooperative. The patient has normal speech MUSCULOSKELETAL: There is no evidence of acute injury. ED Course Vital Signs 01/31/18 12:34 Temperature 98.9 F Pulse Rate 81 Respiratory 18 Rate Blood Pressure 121/77 O2 Sat by Pulse 98 Oximetry - Consultations Consultation #1: 01/31/18 18:12 [place] transfer line called 01/31/18 18:29 Case discussed with [place] childcare administrator Dr. Moses- will accept patient in transfer to [place] ED for evaluation ED Medical Decision Making - Lab Data Result diagrams: 01/31/18 12:53 01/31/18 12:53 Laboratory Tests 01/31/18 01/31/18 01/31/18 12:45 12:53 12:53 WBC 8.8 RBC 4.64 Hgb 12.9 Hct 38.2 MCV 82 MCH 28 MCHC 34 RDW 15.0 Plt Count 326 Lymph % (Auto) 25.3 [place] % (Auto) 6.2 Eos % (Auto) 1.5 Baso % (Auto) 0.7 Lymph # 2.2 [place] # 0.5 Eos # 0.1 Baso # 0.1 Seg Neutrophils % 66.3 Seg Neutrophils # 5.8 PT 12.7 INR 0.91 APTT 27.5 Thrombin Time Sodium Potassium Chloride Carbon Dioxide Anion Gap BUN Creatinine Estimated GFR BUN/Creatinine Ratio Glucose POC Glucose 135 H Calcium Troponin T HCG, Qual 01/31/18 01/31/18 01/31/18 12:53 12:53 14:33 WBC RBC Hgb Hct MCV MCH MCHC RDW Plt Count Lymph % (Auto) [place] % (Auto) Eos % (Auto) Baso % (Auto) Lymph # [place] # Eos # Baso # Seg Neutrophils % Seg Neutrophils # PT INR APTT Thrombin Time 17.4 Sodium 137 Potassium 4.0 Chloride 101.3 Carbon Dioxide 21 L Anion Gap 19 BUN 12 Creatinine 0.5 L Estimated GFR > 60 BUN/Creatinine Ratio 24 Glucose 104 H POC Glucose Calcium 8.6 Troponin T < 0.010 HCG, Qual Negative - EKG Data -: EKG Interpreted by Nh EKG shows normal: sinus rhythm Rate: normal - EKG Data When compared to previous EKG there are: previous EKG unavailable Interpretation: nonspecific ST-T wave elvin (T-wave inversions in leads 3) - Radiology Data Radiology results: report reviewed (CT head), image reviewed (CT head) [place] [address] Cat Scan Report Signed Patient: RUSSEL MCCORMICK MR#: [id number] : 1975 Acct:[id number] Age/Sex: 42 / F ADM Date: 01/31/18 Loc: ED Attending Dr: Ordering Physician: BAILEY MILLER MD Date of Service: 01/31/18 Procedure(s): CT head/brain wo con Accession Number(s): [id number] cc: BAILEY MILLER MD CT HEAD WITHOUT CONTRAST: HISTORY: Vision changes to the left eye. TECHNIQUE: Sequential 2.5mm CT images. COMPARISON: 01/22/18. FINDINGS: Cerebral Parenchyma: Within normal limits. Cerebellum: Within normal limits. Brainstem: Within normal limits. Ventricles: Normal. Sella: Normal. Extra-axial spaces: Normal. Basal Cisterns: Normal. Intracranial Hemorrhage: None. Midline Shift: None. Calvarium: Normal. Sinuses: Normal. Mastoid Air Cells: Normal. Visualized Orbits: Normal. IMPRESSION: Cranial CT scan within normal limits. No change since 01/22/18. Transcribed By: TTR Dictated By: CASPER CLARK JR, MD Electronically Authenticated By: CASPER CLARK JR, MD Signed Date/Time: 01/31/181444 DD/ 44 TD/TT: 01/31/181444 - Differential Diagnosis glaucoma, conjunctivitis, iritis Critical care attestation.: If time is entered above; I have spent that time in minutes in the direct care of this critically ill patient, excluding procedure time. ED Disposition Clinical Impression: Acute left eye pain, Visual disturbance of one eye Disposition: DC/[place]-70 ANOTHER TYPE HLTHCARE Is pt being admited?: No Does the pt Need Aspirin: No Condition: Fair Referrals: PRIMARY CARE, [Primary Care Provider] - 3-5 Days Time of Disposition: 18:32 (awaiting transport)
[2018-01-31 19:05] VITALS: BP 132/68
== END 2018-01-31 19:28 | disposition other institution (70) ==
LOC: ED 12:24
DX: H57.8 Other specified disorders of eye and adnexa (principal); H57.12 Ocular pain, left eye; I10 Essential (primary) hypertension; I25.2 Old myocardial infarction; M19.90 Unspecified osteoarthritis, unspecified site; G43.909 Migraine, unspecified, not intractable, without status migrainosus; E11.40 Type 2 diabetes mellitus with diabetic neuropathy, unspecified; Z86.73 Personal history of transient ischemic attack (TIA), and cerebral infarction without residual deficits; Z86.718 Personal history of other venous thrombosis and embolism; Z87.891 Personal history of nicotine dependence
CPT/HCPCS: 36415; 70450; 80048; 82962; 84484; 84703; 85025; 85610; 85670; 85730; 93005; 93010; 99285

== ENCOUNTER 2018-02-17 20:10 | Emergency (ER) | payer MEDICARE ==
[2018-02-17] MEDS ORDERED: ASPIRIN PO ONE (20:35)
[2018-02-17] MEDS ORDERED: KEPPRA 1,000 MG/NS 0.75% 100ML 1,000 MG/100 ML BAG IV ONE (21:23)
[2018-02-17 21:24] LABS: Basophils # (Auto) 0.1 K/mm3 (0.0-0.1); Basophils % (Auto) 0.6 % (0.0-1.8); Eosinophils # (Auto) 0.1 K/mm3 (0.0-0.4); Eosinophils % (Auto) 1.2 % (0.0-4.3); Hematocrit 34.9 % (30.3-42.9); Hemoglobin 12.6 gm/dl (10.1-14.3); Lymphocytes # (Auto) 2.2 K/mm3 (1.2-5.4); Lymphocytes % (Auto) 24.5 % (13.4-35.0); Mean Corpuscular HGB Conc 36 % (30-34); Mean Corpuscular Hemoglobin 29 pg (28-32); Mean Corpuscular Volume 81 fl (79-97); Monocytes # (Auto) 0.7 K/mm3 (0.0-0.8); Monocytes % (Auto) 7.6 % (0.0-7.3); Platelet Count 292 K/mm3 (140-440); Red Blood Count 4.33 M/mm3 (3.65-5.03); Red Cell Distribution Width 15.4 % (13.2-15.2)
[2018-02-17] MEDS ORDERED: NORCO 5/325 PO ONE (21:24)
[2018-02-17 21:38] LABS: BUN/Creatinine Ratio 14; Blood Urea Nitrogen 7 mg/dL (7-17); Hemolysis Index 2
--- NOTE | 2018-02-17 21:56 | Cat Scan Report ---
FINAL REPORT EXAM: CT HEAD/BRAIN WO CON HISTORY: headache TECHNIQUE: CT head without contrast PRIORS: None. FINDINGS: No acute intra-axial or extra-axial hemorrhage is identified. There is no evidence of midline shift or mass effect. The ventricles and sulci are within normal limits. Kendrick-white matter differentiation is intact. No acute parenchymal abnormalities seen. Bony calvarium is grossly intact. Visualized portions of the mastoids and paranasal sinuses are unremarkable. IMPRESSION: Negative CT head
--- NOTE | 2018-02-17 23:33 | Emergency Department Report ---
HPI - General Chief Complaint: Seizure Time Seen by Provider: 02/17/18 21:22 - HPI HPI: The patient is a 42-year-old female with a history of seizure, presents for evaluation of seizure and headache. The patient states that she had a seizure past one hour prior to arrival. She shares that she fell and struck her posterior head on the ground. She complains of a constant aching posterior headache since, 03/25 in severity, exacerbated with movement of the head. The patient denies fever, neck pain, neck stiffness, chest pain, dyspnea, abdominal pain, vision or hearing changes, smell or taste changes, paresthesias, facial drooping, slurred speech, urine or bowel incontinence or retention, or other focal neurological deficit. ED Past Medical Hx - Past Medical History Previous Medical History?: Yes Hx Hypertension: Yes Hx CVA: Yes (age 21) Hx Heart Attack/AMI: Yes (3 times/mild, WPW) Hx Diabetes: Yes ([facility]) Hx Deep Vein Thrombosis: Yes ([facility] 2006) Hx Arthritis: Yes Hx Headaches / Migraines: Yes Hx Seizures: Yes Hx Asthma: Yes (bronchitis) Additional medical history: neuropathy. sleep apnea - Surgical History Past Surgical History?: Yes Hx Breast Surgery: Yes (cyst removed) Additional Surgical History: breast cyst, - Social History Smoking Status: Never Smoker Substance Use Type: None - Medications Home Medications: Home Medications Medication Instructions Recorded Confirmed Last Taken Type ALBUTEROL Inhaler [ProAir HFA 2 puff IH QID PRN 30 Days #1 01/24/18 02/17/18 Unknown Rx Inhaler] inhalation Aspirin [Aspirin BABY CHEW TAB] 81 mg PO DAILY #30 tab.chew 01/24/18 02/17/18 Rx Butalb/Acetamin/Caff 50-325-40 1 tab PO Q4H PRN #20 tablet 01/24/18 02/17/18 2 Weeks Ago Rx [Fioricet] ~02/03/18 Gabapentin [Neurontin] 100 mg PO Q8HR #30 capsule 01/24/18 02/17/18 Unknown Rx levETIRAcetam [Keppra TAB] 500 mg PO BID #60 tablet 02/17/18 Unknown Rx ED Review of Systems ROS: Stated complaint: SEIZURE Other details as noted in HPI Constitutional: denies: fever ENT: denies: throat or neck pain Respiratory: denies: cough, shortness of breath Cardiovascular: denies: chest pain Endocrine: denies unexplained weight loss or gain Gastrointestinal: denies: abdominal pain, nausea Genitourinary: denies: dysuria Musculoskeletal: denies: leg swelling Skin: denies: rash Neurological: reportys seizure and headache Hematological/Lymphatic: denies: easy bleeding or easy bruising Psych: denies sadness or hopelessness Physical Exam - Physical Exam Vital Signs: Vital Signs 02/17/18 02/17/18 02/17/18 20:28 20:30 21:00 Temperature 98.5 F Pulse Rate 76 79 82 Respiratory 16 13 16 Rate Blood Pressure 145/73 145/73 145/73 O2 Sat by Pulse 98 100 100 Oximetry 02/17/18 02/17/18 02/17/18 21:15 21:30 22:00 Temperature Pulse Rate 79 70 Respiratory 16 14 15 Rate Blood Pressure 144/76 143/78 O2 Sat by Pulse 98 98 Oximetry Physical Exam: General: well-nourished, well-developed, no acute distress Head: Normocephalic, atraumatic Eyes: normal sclera ENT: Mucous membranes are pale and dry Neck: No neck stiffness, no cervical adenopathy Respiratory: Breath sounds equal bilaterally, no wheezing, rales, or rhonchi Cardio: S1 and S2 present, no murmurs, rubs, gallops, capillary refill is delayed Abdomen: Normoactive bowel sounds, soft abdomen, no rigidity, no guarding or rebound tenderness Musc: No pitting edema Skin: No rash Neuro: alert oriented x4, normal cognition, speech normal, PERRL, EOM intact, no facial drooping, no uvula or tongue deviation on protrusion, no deficit with rotation of neck or shoulder shrug, no obvious gross motor deficit in the upper or lower extremities with flexion or extension at the shoulder, elbow, wrist, hip, knee, or ankle bilaterally, no obvious gross sensation deficit to crude touch or 2 pt discrimination, 2+ symmetric reflexes on DTR testing, no coordination deficit with [id number] or cpkx-ss-krzy testing, Babinski downgoing, romberg negative, patient able to to ambulate without abnormal gait Psych: Normal affect ED Course Vital Signs 02/17/18 02/17/18 02/17/18 20:28 20:30 21:00 Temperature 98.5 F Pulse Rate 76 79 82 Respiratory 16 13 16 Rate Blood Pressure 145/73 145/73 145/73 O2 Sat by Pulse 98 100 100 Oximetry 02/17/18 02/17/18 02/17/18 21:15 21:30 22:00 Temperature Pulse Rate 79 70 Respiratory 16 14 15 Rate Blood Pressure 144/76 143/78 O2 Sat by Pulse 98 98 Oximetry ED Medical Decision Making - Lab Data Result diagrams: 02/17/18 21:05 02/17/18 21:05 - Medical Decision Making The patient was seen and examined by myself. The patient is placed on a monitoring and evaluation advisor and continuous pulse ox. On initial evaluation, the patient was found to be in no distress. Evaluation orders were placed. The patient is given pain medicine. The patient given keppra for treatment of her seizure. Lab results unrevealing. CT scan the head is negative for acute scrotal disease process.The patient was reevaluated and reported that their symptoms were markedly improved. The patient is stable for discharge with outpatient follow-up. The patient is given follow-up and return instructions. The patient expressed understanding and agreed with the plan. The patient is discharged in stable condition. Critical care attestation.: If time is entered above; I have spent that time in minutes in the direct care of this critically ill patient, excluding procedure time. ED Disposition Clinical Impression: Seizure disorder, Acute post-traumatic headache, not intractable Disposition: - TO HOME OR SELFCARE Is pt being admited?: No Does the pt Need Aspirin: No Condition: Stable Instructions: Epilepsy (ED), Migraine Headache (ED) Referrals: PRIMARY CAREMD [Primary Care Provider] - 3-5 Days BAILEY CHUN MD [Staff Physician] - 3-5 Days Time of Disposition: 23:29
[2018-02-17] MEDS ORDERED: FIORICET PO ONE (23:49)
[2018-02-18] MEDS ORDERED: BENADRYL IV ONE (00:37)
[2018-02-18] MEDS ORDERED: TORADOL IV ONE (00:37)
[2018-02-18] MEDS ORDERED: ATIVAN IV ONE (00:37)
[2018-02-18 07:50] VITALS: BP 132/82
== END 2018-02-18 07:51 | disposition home or self-care (01) ==
LOC: ED 20:10
DX: G40.909 Epilepsy, unspecified, not intractable, without status epilepticus (principal); G44.319 Acute post-traumatic headache, not intractable; I10 Essential (primary) hypertension; I25.2 Old myocardial infarction; M19.90 Unspecified osteoarthritis, unspecified site; G43.909 Migraine, unspecified, not intractable, without status migrainosus; E11.40 Type 2 diabetes mellitus with diabetic neuropathy, unspecified; Z86.73 Personal history of transient ischemic attack (TIA), and cerebral infarction without residual deficits; Z86.718 Personal history of other venous thrombosis and embolism; Z79.82 Long term (current) use of aspirin
CPT/HCPCS: 36415; 70450; 80048; 84484; 84703; 85025; 93005; 93010; 96365; 96375; 99285; J1200; J1885; J1953; J2060

== ENCOUNTER 2018-03-06 14:37 | Emergency (ER) | payer MEDICAID, MEDICARE ==
[2018-03-06 14:49] VITALS: BP 125/75
[2018-03-06 16:08] LABS: HCG Qualitative,Urine Negative (Negative)
[2018-03-06 16:11] LABS: Bilirubin,Urine NEG (Negative); Blood,Urine LG (Negative); Color,Urine Yellow (Yellow); Mucus,Urine FEW /HPF; Urobilinogen,Urine < 2.0 mg/dL (<2.0)
[2018-03-06 16:12] LABS: RBC,Urine > 182.0 /HPF (0.0-6.0)
[2018-03-06] MEDS ORDERED: KEPPRA PO ONE (16:55)
--- NOTE | 2018-03-06 17:00 | Emergency Department Report ---
ED Female HPI - General Chief complaint: Vaginal Bleeding Stated complaint: VAGINAL BLEEDING/SEIZURE Time Seen by Provider: 03/06/18 16:40 Source: patient, old records reviewed Mode of arrival: Ambulatory Limitations: No Limitations - History of Present Illness Initial comments: 42 yo female with multiple medical problems including seizures presents to the hospital complains of vaginal bleeding. Patient missed her period last month and started bleeding again yesterday. She is concerned as some of the blood clots look like tissue and that she is possibly having a miscarriage. She presumed she was because she missed her cycle last month and she wants to be and have another child. Patient states that she had a seizure while in the waiting room although nurse did not witness any seizure-like activity. Patient stopped taking her Keppra a week ago because she presumed she was and thought the seizure med might harm the baby. Previous medical record review patient was here February 17 for seizure and she had a negative serum at that time. Patient also had unremarkable CT head. - Related Data Previous Rx's Medication Instructions Recorded Last Taken Type Aspirin [Aspirin BABY CHEW TAB] 81 mg PO DAILY #30 tab.chew 01/24/18 02/17/18 Rx Butalb/Acetamin/Caff 50-325-40 1 tab PO Q4H PRN #20 tablet 01/24/18 2 Weeks Ago Rx [Fioricet] ~02/03/18 Gabapentin [Neurontin] 100 mg PO Q8HR #30 capsule 01/24/18 Unknown Rx ALBUTEROL Inhaler [ProAir HFA 2 puff IH QID PRN #1 inhalation 03/06/18 Unknown Rx Inhaler] levETIRAcetam [Keppra] 500 mg PO BID #60 tablet 03/06/18 Unknown Rx Allergies Allergy/AdvReac Type Severity Reaction Status Date / Time fluoxetine HCl [From Prozac] Allergy Unknown Verified 02/01/17 23:13 Penicillins Allergy Unknown Verified 02/01/17 23:13 ED Review of Systems ROS: Stated complaint: VAGINAL BLEEDING/SEIZURE Other details as noted in HPI Comment: All other systems reviewed and negative ED Past Medical Hx - Past Medical History Hx Hypertension: Yes Hx CVA: Yes (age 21) Hx Heart Attack/AMI: Yes (3 times/mild, WPW) Hx Diabetes: Yes (borderline) Hx Deep Vein Thrombosis: Yes ([facility] 2006) Hx Arthritis: Yes Hx Headaches / Migraines: Yes Hx Seizures: Yes Hx Asthma: Yes (bronchitis) Additional medical history: neuropathy. sleep apnea - Surgical History Past Surgical History?: Yes Hx Breast Surgery: Yes (cyst removed) Additional Surgical History: breast cyst, - Social History Smoking Status: Never Smoker Substance Use Type: None - Medications Home Medications: Home Medications Medication Instructions Recorded Confirmed Last Taken Type Aspirin [Aspirin BABY CHEW TAB] 81 mg PO DAILY #30 tab.chew 01/24/18 02/17/18 Rx Butalb/Acetamin/Caff 50-325-40 1 tab PO Q4H PRN #20 tablet 01/24/18 02/17/18 2 Weeks Ago Rx [Fioricet] ~02/03/18 Gabapentin [Neurontin] 100 mg PO Q8HR #30 capsule 01/24/18 02/17/18 Unknown Rx ALBUTEROL Inhaler [ProAir HFA 2 puff IH QID PRN #1 inhalation 03/06/18 Unknown Rx Inhaler] levETIRAcetam [Keppra] 500 mg PO BID #60 tablet 03/06/18 Unknown Rx ED Physical Exam - General Limitations: No Limitations - Other Other exam information: General: No limitations, patient is alert in no acute distress Head exam: Atraumatic, normocephalic Eyes exam: Normal appearance ENT: Moist mucous membrane Neck exam: Normal inspection, full range of motion, no meningismus nontender Respiratory exam: Clear to auscultation bilateral, no wheezes, rales, crackles Cardiovascular: Normal rate and rhythm, normal heart sounds Abdomen: Soft, nondistended, and nontender, with normal bowel sounds, no rebound, or guarding Extremity: Full range of motion normal inspection no deformity Back: Normal Inspection, full range of motion, no tenderness Neurologic: Alert, oriented x3, cranial nerves intact, no motor or sensory deficit Psychiatric: normal affect, normal mood Skin: Warm, dry, intact ED Course Vital Signs 03/06/18 14:44 Temperature 98.6 F Pulse Rate 89 Respiratory 18 Rate Blood Pressure 125/75 O2 Sat by Pulse 99 Oximetry - Reevaluation(s) Reevaluation #1: 03/06/18 16:58 By mouth Keppra 500 mg ED Medical Decision Making - Lab Data Lab Results 03/06/18 Range/Units 15:39 Urine Color Yellow (Yellow) Urine Turbidity Hazy (Clear) Urine pH 6.0 (5.0-7.0) Ur Specific Hobson 1.010 (1.003-1.030) Urine Protein 30 mg/dl (Negative) mg/dL Urine Glucose (UA) Neg (Negative) mg/dL Urine Ketones Neg (Negative) mg/dL Urine Blood Lg (Negative) Urine Nitrite Neg (Negative) Ur Reducing Substances Not Reportable Urine Bilirubin Neg (Negative) Urine Ictotest Not Reportable Urine Urobilinogen < 2.0 (<2.0) mg/dL Ur Leukocyte Esterase Tr (Negative) Urine WBC (Auto) 22.0 H (0.0-6.0) /HPF Urine RBC (Auto) > 182.0 (0.0-6.0) /HPF U Epithel Cells (Auto) 3.0 (0-13.0) /HPF Urine Mucus Few /HPF Urine HCG, Qual Negative (Negative) - Medical Decision Making Seizure Noncompliance of medication By mouth Keppra 500 given in the ED Refill provided as well Vaginal bleeding Patient skipped her menstrual cycle last month test negative today and on February the UA has blood and white cells like secondary to contaminant. No nitrites and patient does not have urinary symptoms [employer] follow-up encouraged for irregular menses and due to the fact that patient is trying to get is high risk Patient also requesting a refill inhaler Outpatient follow-up recommended - Differential Diagnosis seizure, medication noncompliance, , DUB Critical Care Time: No Critical care attestation.: If time is entered above; I have spent that time in minutes in the direct care of this critically ill patient, excluding procedure time. ED Disposition Clinical Impression: Noncompliance with medication regimen, Irregular menses, Medication refill Disposition: DC-01 TO HOME OR SELFCARE Is pt being admited?: No Does the pt Need Aspirin: No Condition: Stable Instructions: Dysfunctional Uterine Bleeding (ED), Recurrent Seizures Adult (ED ) Additional Instructions: Take the medication as prescribed. Follow up with your doctor. Return if symptoms worsen as indicated by your discharge instructions Prescriptions: ALBUTEROL Inhaler [ProAir HFA Inhaler] 2 puff IH QID PRN #1 inhalation PRN Reason: Shortness Of Breath levETIRAcetam [Keppra] 500 mg PO BID #60 tablet Referrals: MARY LOU DEGROOT MD [Staff Physician] - 3-5 Days (neurology) FELICIANO CARLISLE MD [Staff Physician] - 3-5 Days (neurology) [facility] [Provider Group] - 3-5 Days ([facility]) [facility] [Provider Group] - 3-5 Days (Primary care clinic) Time of Disposition: 17:04
== END 2018-03-06 17:14 | disposition home or self-care (01) ==
LOC: ED 14:37
DX: N92.6 Irregular menstruation, unspecified (principal); Z91.14 Patient's other noncompliance with medication regimen; Z76.0 Encounter for issue of repeat prescription; I10 Essential (primary) hypertension; I25.2 Old myocardial infarction; M19.90 Unspecified osteoarthritis, unspecified site; E11.40 Type 2 diabetes mellitus with diabetic neuropathy, unspecified; Z86.73 Personal history of transient ischemic attack (TIA), and cerebral infarction without residual deficits; Z86.718 Personal history of other venous thrombosis and embolism; Z88.0 Allergy status to penicillin; Z88.8 Allergy status to other drugs, medicaments and biological substances; Z79.82 Long term (current) use of aspirin
CPT/HCPCS: 81001; 81025; 99283

== ENCOUNTER 2018-03-08 19:02 | Emergency (ER) | payer MEDICAID ==
--- NOTE | 2018-03-08 20:01 | Emergency Department Report ---
ED General Adult HPI - General Chief complaint: Seizure Stated complaint: SEIZURES Time Seen by Provider: 03/08/18 19:40 Source: patient, family, EMS (ems notes not available at time of chart dictation), RN notes reviewed, old records reviewed Mode of arrival: Stretcher Limitations: Other (patient has no recollection of the events) - History of Present Illness Initial comments: This is a 42-year-old female whom I have evaluated in the past. Her past medical history includes hypertension, possible stroke, possible heart disease, WPW, sleep apnea, possible seizure disorder. Patient recently admitted to this hospital for nonspecific convulsions. She was seen and evaluated by neurology, had a normal EEG, and had a presumptive diagnosis of psychogenic disorder, neuropathy, and common migraine from neurology. She is continued on Keppra for migraine prevention, and gabapentin as well. The patient presents to the ER with and endorsed complaint of possible seizure. The patient has no recollection of the event. According to her cancer program coordinator, the patient began to act strangely, had her eyes rolled back of her head, and had generalized shaking. The patient does not recall this. She does complain of her typical constellation of generalized body aches, temporal headache, and generalized weakness. The headache is not sudden or thunderclap in nature, and did not reach maximal intensity within an hour. Right now, she denies chest pain, abdominal pain, shortness of breath, urinary symptoms. She also denies hallucinations, homicidality and suicidality. -: Sudden Location: head, left, right, upper extremity, lower extremity Quality: aching Consistency: intermittent Improves with: rest Worsens with: movement Associated Symptoms: confusion, headaches, malaise, seizure, weakness. denies: chest pain, cough, diaphoresis, fever/chills, loss of appetite, nausea/vomiting , rash, shortness of breath, syncope - Related Data Previous Rx's Medication Instructions Recorded Last Taken Type Aspirin [Aspirin BABY CHEW TAB] 81 mg PO DAILY #30 tab.chew 01/24/18 02/17/18 Rx Butalb/Acetamin/Caff 50-325-40 1 tab PO Q4H PRN #20 tablet 01/24/18 2 Weeks Ago Rx [Fioricet] ~02/03/18 Gabapentin [Neurontin] 100 mg PO Q8HR #30 capsule 01/24/18 Unknown Rx ALBUTEROL Inhaler [ProAir HFA 2 puff IH QID PRN #1 inhalation 03/06/18 Unknown Rx Inhaler] Nitrofurantoin Monohyd/M-Cryst 100 mg PO BID #13 capsule 03/08/18 Unknown Rx [Macrobid 100 mg Capsule] levETIRAcetam [Keppra] 500 mg PO BID #120 tablet 03/08/18 Unknown Rx Allergies Allergy/AdvReac Type Severity Reaction Status Date / Time fluoxetine HCl [From Prozac] Allergy Unknown Verified 02/01/17 23:13 Penicillins Allergy Unknown Verified 02/01/17 23:13 ED Review of Systems ROS: Stated complaint: SEIZURES Other details as noted in HPI Comment: All other systems reviewed and negative ED Past Medical Hx - Past Medical History Previous Medical History?: Yes Hx Hypertension: Yes Hx CVA: Yes (age 21) Hx Heart Attack/AMI: Yes (3 times/mild, WPW) Hx Diabetes: Yes (borderline) Hx Deep Vein Thrombosis: Yes ([facility] 2006) Hx Arthritis: Yes Hx Headaches / Migraines: Yes Hx Seizures: Yes Hx Asthma: Yes (bronchitis) Additional medical history: neuropathy. sleep apnea - Surgical History Past Surgical History?: Yes Hx Breast Surgery: Yes (cyst removed) Additional Surgical History: breast cyst, - Social History Smoking Status: Never Smoker Substance Use Type: Alcohol - Medications Home Medications: Home Medications Medication Instructions Recorded Confirmed Last Taken Type Aspirin [Aspirin BABY CHEW TAB] 81 mg PO DAILY #30 tab.chew 01/24/18 02/17/18 Rx Butalb/Acetamin/Caff 50-325-40 1 tab PO Q4H PRN #20 tablet 01/24/18 02/17/18 2 Weeks Ago Rx [Fioricet] ~02/03/18 Gabapentin [Neurontin] 100 mg PO Q8HR #30 capsule 01/24/18 02/17/18 Unknown Rx ALBUTEROL Inhaler [ProAir HFA 2 puff IH QID PRN #1 inhalation 03/06/18 Unknown Rx Inhaler] Nitrofurantoin Monohyd/M-Cryst 100 mg PO BID #13 capsule 03/08/18 Unknown Rx [Macrobid 100 mg Capsule] levETIRAcetam [Keppra] 500 mg PO BID #120 tablet 03/08/18 Unknown Rx ED Physical Exam - General Limitations: No Limitations General appearance: alert, in no apparent distress - Head Head exam: Present: atraumatic, normocephalic - Eye Eye exam: Present: normal appearance, EOMI. Absent: nystagmus - ENT ENT exam: Present: normal exam, normal orophraynx, mucous membranes moist, normal external ear exam - Neck Neck exam: Present: normal inspection, full ROM. Absent: tenderness, meningismus - Respiratory Respiratory exam: Present: normal lung sounds bilaterally. Absent: respiratory distress - Cardiovascular Cardiovascular Exam: Present: regular rate, normal rhythm, normal heart sounds. Absent: bradycardia, tachycardia, irregular rhythm, systolic murmur, diastolic murmur, rubs, gallop - GI/Abdominal GI/Abdominal exam: Present: soft, normal bowel sounds. Absent: distended, tenderness, guarding, rebound, rigid, pulsatile mass - Extremities Exam Extremities exam: Present: normal inspection, full ROM, normal capillary refill , other (2+ pulses noted in the bilateral upper, lower extremities. Compartments soft. No long bony tenderness. The pelvis is stable.). Absent: tenderness, joint swelling, calf tenderness - Back Exam Back exam: Present: normal inspection, full ROM. Absent: tenderness, CVA tenderness (R), paraspinal tenderness, vertebral tenderness - Neurological Exam Neurological exam: Present: alert, oriented X3, CN II-XII intact, other ( Extraocular movements intact. Tongue midline. No facial droop. Facial sensation intact to light touch in the V1, V2, V3 distribution bilaterally. 5 and 5 strength in 4 extremities.. Sensation is intact to light touch in 4 extremities.). Absent: motor sensory deficit - Psychiatric Psychiatric exam: Present: anxious. Absent: homicidal ideation, suicidal ideation - Skin Skin exam: Present: warm, dry, intact, normal color. 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 She is afebrile with reassuring vital signs, clinically sober at this time, with a GCS of 15, NIH score of 0. Patient does not recall precipitating event, and we will therefore obtain a CT scan of the brain to exclude intracranial injury. I did engage the patient in the discussion about wanting psychiatric follow-up, and she is surprised by her presumptive diagnosis of psychogenic seizure. She does not meet 1013 criteria at this time and is not actively psychotic. Her EKG is morphologically unremarkable. Laboratory studies pending. Urinalysis pending. Reevaluation #2: 03/08/18 22:36 Patient is walking with a steady gait. CT scan of the brain is negative. Urinalysis suggests 2+ bacteria, may be asymptomatic bacteriuria, versus asymptomatic UTI. We will cover empirically with Macrobid. Patient has been observed in the ER for hours without clinical decompensation. She is walking with a steady gait and her repeat neurologic examination is unremarkable and unchanged. shell be discharged at this time. ED Medical Decision Making - Lab Data Result diagrams: 03/08/18 20:01 03/08/18 20:01 Vital Signs 03/08/18 19:38 Temperature 98.5 F Pulse Rate 74 Respiratory 14 Rate Blood Pressure 152/85 Blood Pressure 152/85 [Left] O2 Sat by Pulse 100 Oximetry - EKG Data -: EKG Interpreted by Ma EKG shows normal: sinus rhythm, axis, intervals, QRS complexes, ST-T waves - Radiology Data Radiology results: pending Critical care attestation.: If time is entered above; I have spent that time in minutes in the direct care of this critically ill patient, excluding procedure time. ED Disposition Clinical Impression: Medication refill, Convulsion Disposition: DC-01 TO HOME OR SELFCARE Is pt being admited?: No Does the pt Need Aspirin: No Condition: Stable Additional Instructions: Do not drive or operate motor vehicles for the next 6 months. Take Keppra for the next week, 500 mg twice daily, then increase to 1000 mg twice daily. Follow up with the neurology specialist within the next 7-10 days. Follow up with a psychiatrist within the next month. Continue current outpatient medications. Return to the ER right away with new pain, worsening pain, migration of pain, projectile vomiting, confusion, change in mental status, inability to tolerate liquid feeds. Prescriptions: levETIRAcetam [Keppra] 500 mg PO BID #120 tablet Referrals: PRIMARY CARE, [Primary Care Provider] - 3-5 Days FELICIANO CARLISLE MD [Staff Physician] - 3-5 Days REENA SWEET MD, PHD [Referring] - 3-5 Days MARY LOU DEGROOT MD [Staff Physician] - 3-5 Days [facility] [Outside] - 3-5 Days
[2018-03-08 20:17] LABS: Hemoglobin 11.6 gm/dl (10.1-14.3); Mean Corpuscular HGB Conc 33 % (30-34); Mean Corpuscular Hemoglobin 28 pg (28-32); Mean Corpuscular Volume 83 fl (79-97); Platelet Count 320 K/mm3 (140-440); Red Cell Distribution Width 14.9 % (13.2-15.2)
[2018-03-08 20:35] LABS: BUN/Creatinine Ratio 22; Blood Urea Nitrogen 11 mg/dL (7-17); Hemolysis Index 6
[2018-03-08 21:25] LABS: Bacteria,Urine 2+ /HPF (Negative); Bilirubin,Urine NEG (Negative); Blood,Urine LG (Negative); Color,Urine Yellow (Yellow); Mucus,Urine FEW /HPF; Protein,Urine <15 mg/dL mg/dL (Negative); Urobilinogen,Urine < 2.0 mg/dL (<2.0)
[2018-03-08 21:35] LABS: Amphetamine Screen,Urine PRESUMPTIVE NEGATIVE; Benzodiazepines Screen,Urine PRESUMPTIVE NEGATIVE; Cannabinoid Screen,Urine PRESUMPTIVE NEGATIVE; Cocaine Screen,Urine PRESUMPTIVE NEGATIVE; Methadone Screen,Urine PRESUMPTIVE NEGATIVE; Opiate Screen,Urine PRESUMPTIVE NEGATIVE
--- NOTE | 2018-03-08 21:36 | Cat Scan Report ---
FINAL REPORT EXAM: CT HEAD/BRAIN WO CON HISTORY: convulsion, headache TECHNIQUE: 2.5 millimeter axial images from the skullbase to the vertex. Comparison: Head CT dated January 22, 2018 FINDINGS: There is no evidence of an acute intracranial process, intracranial hemorrhage or mass effect. The ventricles are normal size. The visualized portions of the orbits, paranasal and mastoid sinuses are unremarkable. The bony structures are unremarkable in appearance. IMPRESSION: 1. No evidence of an acute intracranial process, intracranial hemorrhage or mass effect. No significant change since previous study dated February 17, 2018. If there is a clinical suspicion of an acute intracranial process and if further imaging is required, MRI brain may be helpful.
[2018-03-08] MEDS ORDERED: MOTRIN PO ONE (22:36)
[2018-03-08] MEDS ORDERED: TYLENOL PO ONE (22:36)
[2018-03-08] MEDS ORDERED: MACROBID PO ONE (22:36)
[2018-03-08 23:08] VITALS: BP 124/72
== END 2018-03-08 23:24 | disposition home or self-care (01) ==
LOC: ED 19:02
DX: G40.909 Epilepsy, unspecified, not intractable, without status epilepticus (principal); I10 Essential (primary) hypertension; I25.2 Old myocardial infarction; Z86.73 Personal history of transient ischemic attack (TIA), and cerebral infarction without residual deficits; Z86.718 Personal history of other venous thrombosis and embolism; M19.90 Unspecified osteoarthritis, unspecified site; G43.909 Migraine, unspecified, not intractable, without status migrainosus; J45.909 Unspecified asthma, uncomplicated
CPT/HCPCS: 36415; 70450; 80048; 80307; 81001; 82550; 84702; 85027; 93005; 93010; 99285; G0480; 80320

== ENCOUNTER 2018-04-13 10:03 | Emergency (ER) | payer MEDICAID, MEDICARE ==
[2018-04-13 10:37] VITALS: BP 142/84
[2018-04-13 12:18] LABS: BUN/Creatinine Ratio 18; Blood Urea Nitrogen 7 mg/dL (7-17); Calcium 9.1 mg/dL (8.4-10.2); Hemolysis Index 27
[2018-04-13 12:25] LABS: HCG Qualitative,Urine Negative (Negative)
--- NOTE | 2018-04-13 12:34 | Emergency Department Report ---
ED Headache HPI - General Chief Complaint: Seizure Stated Complaint: HEADACHE Time Seen by Provider: 04/13/18 11:50 - History of Present Illness Initial Comments: 42-year-old female presents to ED with complaints of headache and possible seizure. Patient states she was walking to her 's house and Sunday and this morning and "blacked out." Patient states she is unsure if she had a seizure, but woke up on the sidewalk and was confused. Patient states she has been under lots of stress lately. She says she has been told that her seizures are stress-induced. Patient prescribed Keppra for seizure control, reports noncompliance with medication because she is trying to get . States that she was told by her [employer]NAGER that she should not be taken antiseizure medicine at this time. Patient reports headache is global, and feels like her usual headaches. Timing/Duration: other (2 days) Quality: severe Recent Head Trauma: chronic headaches, head trauma < 24 hrs ago Associated Symptoms: confusion, loss of consciousness. denies: fever/chills, nausea/vomiting Allergies/Adverse Reactions: Allergies fluoxetine HCl [From Prozac] Allergy (Verified 02/01/17 23:13) Unknown Penicillins Allergy (Verified 02/01/17 23:13) Unknown Home Medications: Ambulatory Orders Aspirin [Aspirin BABY CHEW TAB] 81 mg PO DAILY #30 tab.chew 01/24/18 Butalb/Acetamin/Caff 50-325-40 [Fioricet] 1 tab PO Q4H PRN #20 tablet 01/24/18 Gabapentin [Neurontin] 100 mg PO Q8HR #30 capsule 01/24/18 ALBUTEROL Inhaler (OR & NICU) [ProAir HFA Inhaler] 2 puff IH QID PRN #1 inhalation 03/06/18 Nitrofurantoin Monohyd/M-Cryst [Macrobid 100 mg Capsule] 100 mg PO BID #13 capsule 03/08/18 levETIRAcetam [Keppra] 500 mg PO BID #120 tablet 03/08/18 ED Review of Systems ROS: Stated complaint: HEADACHE Other details as noted in HPI Comment: All other systems reviewed and negative Constitutional: denies: fever Eyes: denies: vision change Respiratory: denies: shortness of breath Cardiovascular: denies: chest pain Gastrointestinal: denies: abdominal pain, nausea, vomiting Neurological: headache ED Past Medical Hx - Past Medical History Hx Hypertension: Yes Hx CVA: Yes (age 21) Hx Heart Attack/AMI: Yes (3 times/mild, WPW) Hx Diabetes: Yes (borderline) Hx Deep Vein Thrombosis: Yes (RLL 2006) Hx Arthritis: Yes Hx Headaches / Migraines: Yes Hx Seizures: Yes (stress induced) Hx Asthma: Yes (bronchitis) Additional medical history: neuropathy. sleep apnea - Surgical History Hx Breast Surgery: Yes (cyst removed) Additional Surgical History: breast cyst, - Social History Smoking Status: Never Smoker - Medications Home Medications: Home Medications Medication Instructions Recorded Confirmed Last Taken Type Aspirin [Aspirin BABY CHEW TAB] 81 mg PO DAILY #30 tab.chew 01/24/18 02/17/18 Rx Butalb/Acetamin/Caff 50-325-40 1 tab PO Q4H PRN #20 tablet 01/24/18 02/17/18 2 Weeks Ago Rx [Fioricet] ~02/03/18 Gabapentin [Neurontin] 100 mg PO Q8HR #30 capsule 01/24/18 02/17/18 Unknown Rx ALBUTEROL Inhaler (OR & NICU) 2 puff IH QID PRN #1 inhalation 03/06/18 Unknown Rx [ProAir HFA Inhaler] Nitrofurantoin Monohyd/M-Cryst 100 mg PO BID #13 capsule 03/08/18 Unknown Rx [Macrobid 100 mg Capsule] levETIRAcetam [Keppra] 500 mg PO BID #120 tablet 03/08/18 Unknown Rx ED Physical Exam - General Limitations: No Limitations General appearance: alert, in no apparent distress - Head Head exam: Present: atraumatic, normocephalic, normal inspection - Eye Eye exam: Present: normal appearance, PERRL, EOMI - ENT ENT exam: Present: mucous membranes moist - Neck Neck exam: Present: normal inspection, full ROM. Absent: tenderness - Respiratory Respiratory exam: Present: normal lung sounds bilaterally. Absent: respiratory distress - Cardiovascular Cardiovascular Exam: Present: regular rate, normal rhythm - GI/Abdominal GI/Abdominal exam: Present: soft. Absent: tenderness - Extremities Exam Extremities exam: Present: normal inspection - Neurological Exam Neurological exam: Present: alert, oriented X3, CN II-XII intact. Absent: motor sensory deficit - Psychiatric Psychiatric exam: Present: normal affect, normal mood - Skin Skin exam: Present: warm, dry, intact, normal color ED Course Vital Signs 04/13/18 10:21 Temperature 98.5 F Pulse Rate 77 Blood Pressure 142/84 O2 Sat by Pulse 98 Oximetry ED Medical Decision Making - Lab Data Result diagrams: 04/13/18 11:21 04/13/18 11:21 - EKG Data -: EKG Interpreted by Me EKG shows normal: sinus rhythm, axis, intervals, QRS complexes, ST-T waves - EKG Data Interpretation: normal EKG - Radiology Data Radiology results: report reviewed, image reviewed - Medical Decision Making 42-year-old female with history of chronic headaches and possible pseudoseizures presents to ED after "falling out." Patient reports she fell on sidewalk and awoke confused early this morning. Head CT negative. Labs unremarkable. Patient currently at baseline with no neuro deficits. Previous admission for seizures shows the patient had no epileptiform activity on EEG. Neurologist did not recommend any anticonvulsants. Patient is not on any medications that may be harmful in as she wishes to get in the near future. Advised Tylenol for headaches, and follow up with PCP. - Differential Diagnosis chronic headache, intracranial bleed, head injury, seizure, pseudoseizure Critical care attestation.: If time is entered above; I have spent that time in minutes in the direct care of this critically ill patient, excluding procedure time. ED Disposition Clinical Impression: Chronic headache Disposition: DC-01 TO HOME OR SELFCARE Is pt being admited?: No Condition: Stable Instructions: Migraine Headache (ED) Referrals: PRIMARY CARE [Primary Care Provider] - 3-[address] [facility] [Provider Group] - 3-5 Days Time of Disposition: 13:08
[2018-04-13 12:43] LABS: Hematocrit 38.4 % (30.3-42.9); Hemoglobin 13.1 gm/dl (10.1-14.3); Mean Corpuscular HGB Conc 34 % (30-34); Mean Corpuscular Hemoglobin 29 pg (28-32); Mean Corpuscular Volume 84 fl (79-97); Platelet Count 313 K/mm3 (140-440); Red Cell Distribution Width 14.8 % (13.2-15.2)
[2018-04-13] MEDS ORDERED: FIORICET PO ONE (12:47)
--- NOTE | 2018-04-13 12:54 | Cat Scan Report ---
FINAL REPORT EXAM: CT HEAD/BRAIN WO CON HISTORY: head injury TECHNIQUE: CT examination of the head without IV contrast PRIORS: 03/08/2018 FINDINGS: Stable senescent calcification bilateral basal ganglia medial aspect. Developmental variation again includes a cavum septum pellucidum and vergae. No acute air-fluid level visualized in the included air-filled sinuses. Bone windows demonstrate no acute fracture. There is superior ventricular and sulcal prominence compatible with slight global cerebrocortical atrophy. The brain contains no mass, mass effect, hemorrhage, or acute infarct. There is no extra-axial intracranial bleed, brain bleed, or midline shift. IMPRESSION: No acute CVA, intracranial bleed, or brain mass
[2018-04-13] MEDS ORDERED: TYLENOL PO ONE (13:09)
== END 2018-04-13 13:22 | disposition home or self-care (01) ==
LOC: ED 10:03
DX: R51 Headache (principal); R55 Syncope and collapse; F43.9 Reaction to severe stress, unspecified; G89.29 Other chronic pain; I10 Essential (primary) hypertension; M19.90 Unspecified osteoarthritis, unspecified site; G43.909 Migraine, unspecified, not intractable, without status migrainosus; J45.909 Unspecified asthma, uncomplicated; E11.40 Type 2 diabetes mellitus with diabetic neuropathy, unspecified; I25.2 Old myocardial infarction; Z86.73 Personal history of transient ischemic attack (TIA), and cerebral infarction without residual deficits; Z86.718 Personal history of other venous thrombosis and embolism; Z88.1 Allergy status to other antibiotic agents; Z88.0 Allergy status to penicillin
CPT/HCPCS: 36415; 70450; 80048; 80185; 81025; 85027; 93005; 93010

== ENCOUNTER 2018-07-26 17:26 | Emergency (ER) | payer MEDICARE ==
[2018-07-26 17:46] VITALS: BP 139/81
[2018-07-26] MEDS ORDERED: TYLENOL PO ONE (19:52)
[2018-07-26] MEDS ORDERED: TYLENOL ONE (19:53)
== END 2018-07-26 21:42 | disposition left against medical advice (07) ==
LOC: ED 17:26
DX: K08.89 Other specified disorders of teeth and supporting structures (principal); Z53.21 Procedure and treatment not carried out due to patient leaving prior to being seen by health care provider

== ENCOUNTER 2018-10-10 11:40 | Emergency (ER) | payer MEDICARE ==
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
[2018-10-10 13:31] LABS: HCG Qualitative,Urine Negative (Negative)
--- NOTE | 2018-10-10 14:19 | XRay Report ---
LUMBOSACRAL SPINE, 3 VIEWS: History: Back pain Findings: The vertebral bodies, disk spaces and posterior elements are intact. No compression deformity or malalignment. The SI joints are symmetric and unremarkable. Impression: 1. No evidence for acute injury to the lumbar spine.
--- NOTE | 2018-10-10 14:20 | XRay Report ---
RIGHT TIBIA/FIBULA: History: Trauma, pain AP and lateral views of the right tibia/fibula demonstrate normal mineralization and contours for this patient's age. No evidence for fracture or suspicious bone lesion. There is moderate anterior soft tissue swelling just distal to the knee. IMPRESSION: Soft tissue swelling. No acute osseous findings.
[2018-10-10 15:20] VITALS: BP 144/73
== END 2018-10-10 15:20 | disposition home or self-care (01) ==
LOC: ED 11:40
DX: M54.5 Low back pain (principal); M79.604 Pain in right leg; I11.0 Hypertensive heart disease with heart failure; E11.40 Type 2 diabetes mellitus with diabetic neuropathy, unspecified; M19.90 Unspecified osteoarthritis, unspecified site; G43.909 Migraine, unspecified, not intractable, without status migrainosus; J45.909 Unspecified asthma, uncomplicated; G47.30 Sleep apnea, unspecified; I25.2 Old myocardial infarction; Z87.891 Personal history of nicotine dependence; Z79.899 Other long term (current) drug therapy; Z88.0 Allergy status to penicillin; Z88.1 Allergy status to other antibiotic agents; Z86.718 Personal history of other venous thrombosis and embolism; Z79.82 Long term (current) use of aspirin
CPT/HCPCS: 72100; 81025

== ENCOUNTER 2018-10-24 01:05 | Emergency (ER) | payer MEDICARE ==
[2018-10-24] MEDS ORDERED: NACL 0.9% 1000 ML 1,000 ML IV ONE (02:27)
[2018-10-24] MEDS ORDERED: PEPCID IV ONE (02:27)
[2018-10-24] MEDS ORDERED: TYLENOL PO ONE (02:27)
[2018-10-24] MEDS ORDERED: REGLAN IV ONE (02:27)
[2018-10-24] MEDS ORDERED: ALUM-MAG HYDROX-SIMETH 200-200-20MG/5ML PO ONE (02:27)
--- NOTE | 2018-10-24 02:29 | Emergency Department Report ---
<FAB MENDES - Last Filed: 10/24/18 06:02> ED General Adult HPI - General Chief complaint: Chest Pain Stated complaint: CHEST TIGHTNESS Time Seen by Provider: 10/24/18 02:15 Source: patient, EMS (ems notes not available at time of chart dictation), RN notes reviewed, old records reviewed Mode of arrival: Stretcher Limitations: No Limitations - History of Present Illness Initial comments: This is a 43-year-old female. I have evaluated this patient in the past. 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 Today, the patient presents to the ER with multiple complaints. She complains of feeling like her blood pressure was elevated. This was accompanied by binocular blurry vision, which lasted for around a half hour, now resolved. She also complains of chest wall pain. The chest wall pain is central and bilateral chest. It does not radiate to the back, arms or neck. There is no vomiting. There is no diaphoresis. There is no focal extremity weakness or numbness. The binocular blurred vision has now resolved. The chest wall pain is still present. It has been present for a few hours. She denies DVT, pulmonary embolus risk factors. 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 She had an essentially unremarkable EEG January 2018. In addition, the patient has been evaluated for pulmonary embolus at [facility] in the past. On 02/02/2017, she had a negative CT scan of the chest for pulmonary embolism. In December 2017, she had an essentially unremarkable CT scan of the chest for gross pulmonary embolus, although that was suboptimal opacification of the distal small pulmonary arteries. No large central pulmonary embolus was identified. -: Sudden Location: eyes, chest Radiation: non-radiation Severity scale (0 -10): 6 Quality: aching Consistency: constant, intermittent Improves with: other Worsens with: other - Related Data Previous Rx's Medication Instructions Recorded Last Taken Type Aspirin [Aspirin BABY CHEW TAB] 81 mg PO DAILY #30 tab.chew 01/24/18 02/17/18 Rx Butalb/Acetamin/Caff 50-325-40 1 tab PO Q4H PRN #20 tablet 01/24/18 2 Weeks Ago Rx [Fioricet] ~02/03/18 Gabapentin [Neurontin] 100 mg PO Q8HR #30 capsule 01/24/18 Unknown Rx ALBUTEROL Inhaler (OR & NICU) 2 puff IH QID PRN #1 inhalation 03/06/18 Unknown Rx [ProAir HFA Inhaler] Nitrofurantoin Monohyd/M-Cryst 100 mg PO BID #13 capsule 03/08/18 Unknown Rx [Macrobid 100 mg Capsule] levETIRAcetam [Keppra] 500 mg PO BID #120 tablet 03/08/18 Unknown Rx Nitrofurantoin Monohyd/M-Cryst 100 mg PO Q12H 7 Days #14 capsule 06/22/18 Unknown Rx [Macrobid 100 mg Capsule] traMADol [Ultram 50 MG tab] 50 mg PO Q6HR PRN #7 tablet 10/10/18 Unknown Rx Acetaminophen [Tylenol Arthritis] 650 mg PO Q6HR PRN #30 tablet.er 10/24/18 Unknown Rx Aspirin [Aspirin BABY CHEW TAB] 81 mg PO QDAY #30 tab.chew 10/24/18 Unknown Rx Allergies Allergy/AdvReac Type Severity Reaction Status Date / Time fluoxetine HCl [From Prozac] Allergy Unknown Verified 07/26/18 17:46 Penicillins Allergy Unknown Verified 07/26/18 17:46 ED Review of Systems Constitutional: denies: fever, malaise Eyes: vision change. denies: eye pain, eye discharge ENT: denies: ear pain Respiratory: denies: cough Cardiovascular: chest pain Gastrointestinal: denies: abdominal pain, nausea, vomiting Musculoskeletal: arthralgia, myalgia, other (chronic pain to the right lower extremity) Neurological: headache. denies: weakness, numbness, paresthesias, confusion Psychiatric: anxiety ED Past Medical Hx - Past Medical History Hx Hypertension: Yes Hx CVA: Yes (age 21) Hx Heart Attack/AMI: Yes (3 times/mild, WPW) Hx Diabetes: Yes (borderline) Hx Deep Vein Thrombosis: Yes (RLL 2006) Hx Arthritis: Yes Hx Headaches / Migraines: Yes Hx Seizures: Yes (stress induced) Hx Psychiatric Treatment: Yes (ADD, childhood psychiatric problem that still persists) Hx Asthma: Yes (bronchitis) Additional medical history: neuropathy. sleep apnea - Surgical History Hx Breast Surgery: Yes (cyst removed) Additional Surgical History: breast cyst, - Social History Smoking Status: Never Smoker Substance Use Type: None - Medications Home Medications: Home Medications Medication Instructions Recorded Confirmed Last Taken Type Aspirin [Aspirin BABY CHEW TAB] 81 mg PO DAILY #30 tab.chew 01/24/18 02/17/18 02/17/18 Rx Butalb/Acetamin/Caff 50-325-40 1 tab PO Q4H PRN #20 tablet 01/24/18 02/17/18 2 Weeks Ago Rx [Fioricet] ~02/03/18 Gabapentin [Neurontin] 100 mg PO Q8HR #30 capsule 01/24/18 02/17/18 Unknown Rx ALBUTEROL Inhaler (OR & NICU) 2 puff IH QID PRN #1 inhalation 03/06/18 Unknown Rx [ProAir HFA Inhaler] Nitrofurantoin Monohyd/M-Cryst 100 mg PO BID #13 capsule 03/08/18 Unknown Rx [Macrobid 100 mg Capsule] levETIRAcetam [Keppra] 500 mg PO BID #120 tablet 03/08/18 Unknown Rx Nitrofurantoin Monohyd/M-Cryst 100 mg PO Q12H 7 Days #14 capsule 06/22/18 Unknown Rx [Macrobid 100 mg Capsule] traMADol [Ultram 50 MG tab] 50 mg PO Q6HR PRN #7 tablet 10/10/18 Unknown Rx Acetaminophen [Tylenol Arthritis] 650 mg PO Q6HR PRN #30 tablet.er 10/24/18 Unknown Rx Aspirin [Aspirin BABY CHEW TAB] 81 mg PO QDAY #30 tab.chew 10/24/18 Unknown Rx ED Physical Exam - General Limitations: No Limitations General appearance: alert, in no apparent distress, obese - Head Head exam: Present: atraumatic, normocephalic, other (there is no temporal tenderness) - Eye Eye exam: Present: normal appearance, PERRL, EOMI, other (visual acuity intact to finger counting, color perception, reading at a close distance). Absent: nystagmus - ENT ENT exam: Present: normal exam, normal orophraynx, mucous membranes moist, normal external ear exam - Neck Neck exam: Present: normal inspection, full ROM. Absent: tenderness, meningismus - Respiratory Respiratory exam: Present: normal lung sounds bilaterally, chest wall tend erness. Absent: respiratory distress - Cardiovascular Cardiovascular Exam: Present: regular rate, normal rhythm. Absent: bradycardia, tachycardia, irregular rhythm, systolic murmur, diastolic murmur, rubs, gallop - GI/Abdominal GI/Abdominal exam: Present: soft. Absent: distended, tenderness, guarding, rebound, rigid, pulsatile mass - Extremities Exam Extremities exam: Present: normal inspection, full ROM, other (2+ pulses noted in the bilateral upper, lower extremities. Compartments soft. No long bony tenderness. The pelvis is stable.). Absent: calf tenderness - Back Exam Back exam: Present: normal inspection, full ROM. Absent: paraspinal tenderness, vertebral tenderness - Neurological Exam Neurological exam: Present: alert, oriented X3, other (Extraocular movements intact. Tongue midline. No facial droop. Facial sensation intact to light touch in the V1, V2, V3 distribution bilaterally. 5 and 5 strength in 4 extremities.. Sensation is intact to light touch in 4 extremities.). Absent: motor sensory deficit - Psychiatric Psychiatric exam: Present: anxious - Skin Skin exam: Present: warm, dry, intact, normal color. Absent: rash ED Course - Reevaluation(s) Reevaluation #1: 10/24/18 03:15 Differential diagnosis, including not limited to: Transient ischemic attack, costochondritis, acute coronary syndrome, anxiety, conversion disorder Assessment and plan: 43-year-old female, not tachycardic, not hypoxic, with resolved binocular blurry vision, chest pain, that is reproducible. On my initial assessment, patient is afebrile, with reassuring vital signs. She smiles when she is rolled in by the ambulance people, and recalls that she has seen this provider in the past. On further assessment, the patient is noted to be speaking on her cellular phone, and she is in no acute distress. Her EKG today is morphologically unchanged from prior. She is smiling, pleasant and cooperative, and appears quite calm. She has a [place] Coma Scale of 15. She has an NIH score of 0 at this time. We will treat her with nonnarcotic pain medication. Laboratory studies, CT scan of the head and neck pending at this time. X-ray of the chest is unremarkable. Reevaluation #2: 10/24/18 05:[address] scan of the brain is negative for acute disease. CT angiogram of the head is negative for acute disease. Troponin negative 1. Patient in no distress, smiling and laughing with nursing staff, and a visitor. Reevaluation #3: 10/24/18 05:15 Repeat troponin pending at this time. Repeat EKG unremarkable, unchanged from prior. Reevaluation #4: 10/24/18 05:29 Care is transferred to the oncoming physician, Dr. Cutler, to follow up on CT angiogram of the neck and repeat troponin. Plan for discharge with recommendation to follow-up with outpatient cardiology, primary care, neurology. Reevaluation #5: 10/24/18 06:02 Angiogram of the neck negative for significant occlusive disease. No evidence of dissection noted. Troponin is pending. ED Medical Decision Making - Lab Data Result diagrams: 10/24/18 02:34 10/24/18 02:34 Vital Signs 10/24/18 01:57 Respiratory 16 Rate O2 Sat by Pulse 100 Oximetry Lab Results 10/24/18 10/24/18 10/24/18 Range/Units 02:34 02:34 02:34 WBC 9.9 (4.5-11.0) K/mm3 RBC 4.50 (3.65-5.03) M/mm3 Hgb 12.5 (10.1-14.3) gm/dl Hct 36.8 (30.3-42.9) % MCV 82 (79-97) fl MCH 28 (28-32) pg MCHC 34 (30-34) % RDW 15.3 H (13.2-15.2) % Plt Count 329 (140-440) K/mm3 Lymph % (Auto) 30.7 (13.4-35.0) % [place] % (Auto) 6.2 (0.0-7.3) % Eos % (Auto) 1.3 (0.0-4.3) % Baso % (Auto) 0.9 (0.0-1.8) % Lymph # 3.0 (1.2-5.4) K/mm3 [place] # 0.6 (0.0-0.8) K/mm3 Eos # 0.1 (0.0-0.4) K/mm3 Baso # 0.1 (0.0-0.1) K/mm3 Seg Neutrophils % 60.9 (40.0-70.0) % Seg Neutrophils # 6.0 (1.8-7.7) K/mm3 Sodium 140 (137-145) mmol/L Potassium 3.5 L (3.6-5.0) mmol/L Chloride 101.9 (98-107) mmol/L Carbon Dioxide 26 (22-30) mmol/L Anion Gap 16 mmol/L BUN 11 (7-17) mg/dL Creatinine 0.5 L (0.7-1.2) mg/dL Estimated GFR > 60 ml/min BUN/Creatinine Ratio 22 % Glucose 95 (65-100) mg/dL Calcium 9.4 (8.4-10.2) mg/dL Magnesium (1.7-2.3) mg/dL Total Creatine Kinase (30-135) units/L Troponin T < 0.010 (0.00-0.029) ng/mL HCG, Qual Negative (Negative) 10/24/18 Range/Units 02:40 WBC (4.5-11.0) K/mm3 RBC (3.65-5.03) M/mm3 Hgb (10.1-14.3) gm/dl Hct (30.3-42.9) % MCV (79-97) fl MCH (28-32) pg MCHC (30-34) % RDW (13.2-15.2) % Plt Count (140-440) K/mm3 Lymph % (Auto) (13.4-35.0) % [place] % (Auto) (0.0-7.3) % Eos % (Auto) (0.0-4.3) % Baso % (Auto) (0.0-1.8) % Lymph # (1.2-5.4) K/mm3 [place] # (0.0-0.8) K/mm3 Eos # (0.0-0.4) K/mm3 Baso # (0.0-0.1) K/mm3 Seg Neutrophils % (40.0-70.0) % Seg Neutrophils # (1.8-7.7) K/mm3 Sodium (137-145) mmol/L Potassium (3.6-5.0) mmol/L Chloride (98-107) mmol/L Carbon Dioxide (22-30) mmol/L Anion Gap mmol/L BUN (7-17) mg/dL Creatinine (0.7-1.2) mg/dL Estimated GFR ml/min BUN/Creatinine Ratio % Glucose (65-100) mg/dL Calcium (8.4-10.2) mg/dL Magnesium 1.80 (1.7-2.3) mg/dL Total Creatine Kinase 51 (30-135) units/L Troponin T (0.00-0.029) ng/mL HCG, Qual (Negative) - EKG Data -: EKG Interpreted by Me EKG shows normal: sinus rhythm Rate: normal - EKG Data 10/24/18 03:17 EKG #1 demonstrates normal sinus, 84 bpm, normal axis, normal intervals, not consistent with ST elevation myocardial infarction, appears unchanged from prior EKG from 05/24/2018. - Radiology Data Radiology results: pending ED Disposition Clinical Impression: History of visual disturbance, Chest pain Disposition: DC-01 TO HOME OR SELFCARE Is pt being admited?: No Does the pt Need Aspirin: No Condition: Stable Instructions: Chest Pain (ED) Additional Instructions: Take the medications as needed/directed. Do not take metformin for the next 48 hours. Follow-up with a social media content manager for complaint of chest pain within the next 3 days. [facility] is a local cardiology practice. Follow-up with a primary care doctor or neurology specialist for complaints of resolved blurry vision. Local neurology specialists including Saji Ramirez, Clarice Return to the emergency room right away with new pain, worsening pain, migration of pain, projectile vomiting, change in mental status, confusion, inability to tolerate liquid feeds, new, worsening or different symptoms. Prescriptions: Aspirin [Aspirin BABY CHEW TAB] 81 mg PO QDAY #30 tab.chew Acetaminophen [Tylenol Arthritis] 650 mg PO Q6HR PRN #30 tablet.er PRN Reason: Pain Referrals: HAMLET PLATT MD [Referring] - 3-5 Days FELICIANO CARLISLE MD [Staff Physician] - 3-5 Days MARY LOU DEGROOT MD [Staff Physician] - 3-5 Days [facility] [Provider Group] - 3-[address] [facility] [Provider Group] - 3-5 Days <RAMONA CUTLER - Last Filed: 10/24/18 06:36> ED Review of Systems ROS: Stated complaint: CHEST TIGHTNESS Other details as noted in HPI ED Course Vital Signs 10/24/18 10/24/18 10/24/18 01:57 02:00 03:00 Temperature Pulse Rate 85 83 Respiratory 16 15 10 L Rate Blood Pressure 154/83 128/83 Blood Pressure [Left] O2 Sat by Pulse 100 100 90 Oximetry 10/24/18 10/24/18 10/24/18 04:01 05:23 06:17 Temperature 98.0 F Pulse Rate 78 Respiratory 20 20 Rate Blood Pressure 167/95 132/68 Blood Pressure 149/71 [Left] O2 Sat by Pulse 97 98 97 Oximetry ED Medical Decision Making - Lab Data Result diagrams: 10/24/18 02:34 10/24/18 02:34 - Medical Decision Making Mrs. Jones presents with several concerns. My colleague performed a comprehensive evaluation. Serial troponin assays 2 are negative. She is appropriate for discharge. Critical care attestation.: If time is entered above; I have spent that time in minutes in the direct care of this critically ill patient, excluding procedure time. ED Disposition Is pt being admited?: No Does the pt Need Aspirin: No
[2018-10-24 02:50] LABS: Basophils # (Auto) 0.1 K/mm3 (0.0-0.1); Basophils % (Auto) 0.9 % (0.0-1.8); Eosinophils # (Auto) 0.1 K/mm3 (0.0-0.4); Eosinophils % (Auto) 1.3 % (0.0-4.3); Hematocrit 36.8 % (30.3-42.9); Hemoglobin 12.5 gm/dl (10.1-14.3); Lymphocytes % (Auto) 30.7 % (13.4-35.0); Mean Corpuscular HGB Conc 34 % (30-34); Mean Corpuscular Volume 82 fl (79-97); Monocytes # (Auto) 0.6 K/mm3 (0.0-0.8); Monocytes % (Auto) 6.2 % (0.0-7.3); Platelet Count 329 K/mm3 (140-440); Red Cell Distribution Width 15.3 % (13.2-15.2)
[2018-10-24 03:07] LABS: BUN/Creatinine Ratio 22; Blood Urea Nitrogen 11 mg/dL (7-17); Calcium 9.4 mg/dL (8.4-10.2); Hemolysis Index 11
--- NOTE | 2018-10-24 03:50 | XRay Report ---
PROCEDURE: XR CHEST 1V AP TECHNIQUE: A portable upright view of the chest was obtained. HISTORY: Chest Pain COMPARISONS: 01/05/2018 FINDINGS: The heart size and mediastinum appear normal. The lungs are clear. Pleural fluid is not seen. The bon es and soft tissues do not show any acute changes. IMPRESSION: No acute cardiopulmonary process.. This document is electronically signed by Alexis Nicholas MD., October 24 2018 03:48:13 AM ET
--- NOTE | 2018-10-24 04:43 | Cat Scan Report ---
PROCEDURE: CT HEAD/BRAIN WO CON TECHNIQUE: Routine axial imaging was obtained of the brain without IV contrast. HISTORY: headache COMPARISONS: 05/24/2018 FINDINGS: There is no evidence of acute stroke or hemorrhage. The ventricular system is appropriate in size and is symmetric. The sinuses are clear. The mastoid air cells are well pneumatized. The calvarium appea rs intact. IMPRESSION: No acute intracranial process.. This document is electronically signed by Alexis Nicholas MD., October 24 2018 04:41:45 AM ET
--- NOTE | 2018-10-24 05:07 | Cat Scan Report ---
PROCEDURE: CT ANGIO HEAD TECHNIQUE: A CT angiogram was performed following the intravenous injection of iodinated contrast. R otational, sagittal, and coronal MIP reconstructions were reviewed. HISTORY: headache, resolved binocular blurry vision COMPARISONS: CT head 10/24/2018 FINDINGS: In the posterior circulation the vertebral and basilar arteries are widely patent with normal bifurca tion into both posterior cerebral arteries. In the anterior circulation the cavernous and supraclinoi d internal carotid arteries are well-visualized with normal bifurcation into the anterior and middle cerebral arteries bilaterally. There is no evidence of arterial stenosis, thrombosis or aneurysm. The re are no enhancing lesions. The dural venous sinuses enhance normally. IMPRESSION: Normal CT angiogram of the brain.. This document is electronically signed by Alexis Nicholas MD., October 24 2018 05:05:11 AM ET
--- NOTE | 2018-10-24 06:00 | Cat Scan Report ---
PROCEDURE: CT ANGIO NECK TECHNIQUE: A CT angiogram was obtained of the arteries in the neck following the intravenous injecti on of iodinated contrast. Sagittal, coronal, and rotational MIP reconstructions reviewed. HISTORY: headache COMPARISONS: CT brain 10/24/2018 FINDINGS: Both common carotid arteries are widely patent. There is mild plaque formation in both carotid bifurc ations. There is no evidence of any hemodynamically significant stenosis based on NASCET both vertebr al arteries are widely patent and are "dominant. There is no evidence of arterial dissection. The lung apices are clear. The thyroid gland appears normal. The airway appears normal. There are sma ll benign appearing lymph nodes in multiple compartments of the neck. The sinuses are clear. The mast oid air cells are well pneumatized. The skeletal structures are unremarkable. IMPRESSION: Mild plaque formation of both carotid bifurcations. No evidence of significant stenosis (0-50%) disea se based on NASCET criteria. No evidence of arterial dissection involving the carotid or vertebral arteries. No acute process identified in the neck. This document is electronically signed by Alexis Nicholas MD., October 24 2018 05:58:34 AM ET
[2018-10-24 06:34] VITALS: BP 132/68
== END 2018-10-24 06:52 | disposition home or self-care (01) ==
LOC: ED 01:05
DX: R07.89 Other chest pain (principal); I10 Essential (primary) hypertension; I25.2 Old myocardial infarction; G43.909 Migraine, unspecified, not intractable, without status migrainosus; J45.909 Unspecified asthma, uncomplicated; Z86.73 Personal history of transient ischemic attack (TIA), and cerebral infarction without residual deficits; Z86.718 Personal history of other venous thrombosis and embolism; E11.40 Type 2 diabetes mellitus with diabetic neuropathy, unspecified; Z79.4 Long term (current) use of insulin; Z79.82 Long term (current) use of aspirin; Z88.0 Allergy status to penicillin; Z88.8 Allergy status to other drugs, medicaments and biological substances
CPT/HCPCS: 36415; 70450; 70496; 70498; 71045; 80048; 82550; 83735; 84484; 84703; 85025; 93005; 93010; 96374; 96375; 99285; J2765; J7030; Q9967; 96361

== ENCOUNTER 2018-11-05 21:45 | Emergency (ER) | payer MEDICARE ==
[2018-11-05] MEDS ORDERED: TYLENOL PO ONE (22:19)
--- NOTE | 2018-11-05 22:19 | Emergency Department Report ---
Chief Complaint: Chest Pain Stated Complaint: ACCELERATED HEART RATE, ELEVATED BP, CHEST PAIN Time Seen by Provider: 11/05/18 22:17 - HPI History of Present Illness: pmh wpw pseudo sz here w cp p family altercation likely anxiety tyring to get co headache MSE screening note: Focused history and physical exam performed. Due to findings the following was ordered: ED Disposition for MSE Condition: Stable
[2018-11-05] MEDS ORDERED: TYLENOL ONE (22:22)
[2018-11-06 01:54] LABS: Amorphous Crystals,Urine Few; Bilirubin,Urine NEG (Negative); Blood,Urine NEG (Negative); Color,Urine Yellow (Yellow); Mucus,Urine FEW /HPF; Urobilinogen,Urine < 2.0 mg/dL (<2.0)
[2018-11-06 01:56] LABS: HCG Qualitative,Urine Negative (Negative)
[2018-11-06] MEDS ORDERED: TYLENOL ONE (02:38)
--- NOTE | 2018-11-06 04:04 | Emergency Department Report ---
ED General Adult HPI - General Chief complaint: Chest Pain Stated complaint: ACCELERATED HEART RATE, ELEVATED BP, CHEST PAIN Time Seen by Provider: 11/05/18 22:17 Source: patient Mode of arrival: Ambulatory Limitations: No Limitations - History of Present Illness Initial comments: 43-year-old female with past medical history of asthma and WPW presents with a complaint of chest pain and palpitations that resulted after getting in a verbal dispute with her stepdaughter. Patient states she had no trauma to her chest. Patient denies any associated shortness of breath. Patient states that she feels as if she may have a component of being anxious and currently has no chest pain. Patient states that the chest pain that she had did not radiate. Patient has had no fever or trauma to the chest. Severity scale (0 -10): 0 - Related Data Previous Rx's Medication Instructions Recorded Last Taken Type Aspirin [Aspirin BABY CHEW TAB] 81 mg PO DAILY #30 tab.chew 01/24/18 02/17/18 Rx Butalb/Acetamin/Caff 50-325-40 1 tab PO Q4H PRN #20 tablet 01/24/18 2 Weeks Ago Rx [Fioricet] ~02/03/18 Gabapentin [Neurontin] 100 mg PO Q8HR #30 capsule 01/24/18 Unknown Rx ALBUTEROL Inhaler (OR & NICU) 2 puff IH QID PRN #1 inhalation 03/06/18 Unknown Rx [ProAir HFA Inhaler] Nitrofurantoin Monohyd/M-Cryst 100 mg PO BID #13 capsule 03/08/18 Unknown Rx [Macrobid 100 mg Capsule] levETIRAcetam [Keppra] 500 mg PO BID #120 tablet 03/08/18 Unknown Rx Nitrofurantoin Monohyd/M-Cryst 100 mg PO Q12H 7 Days #14 capsule 06/22/18 Unknown Rx [Macrobid 100 mg Capsule] traMADol [Ultram 50 MG tab] 50 mg PO Q6HR PRN #7 tablet 10/10/18 Unknown Rx Acetaminophen [Tylenol Arthritis] 650 mg PO Q6HR PRN #30 tablet.er 10/24/18 Unknown Rx Aspirin [Aspirin BABY CHEW TAB] 81 mg PO QDAY #30 tab.chew 10/24/18 Unknown Rx ALBUTEROL Inhaler(NF) [VENTOLIN 1 puff IH BID #1 inha 11/06/18 Unknown Rx Inhaler(NF)] traMADol [Ultram] 50 mg PO Q6HR PRN #20 tablet 11/06/18 Unknown Rx Allergies Allergy/AdvReac Type Severity Reaction Status Date / Time fluoxetine HCl [From Prozac] Allergy Unknown Verified 07/26/18 17:46 Penicillins Allergy Unknown Verified 07/26/18 17:46 ED Review of Systems ROS: Stated complaint: ACCELERATED HEART RATE, ELEVATED BP, CHEST PAIN Other details as noted in HPI Constitutional: denies: chills, fever Eyes: denies: eye pain, eye discharge, vision change ENT: denies: ear pain, throat pain Respiratory: denies: cough, shortness of breath, wheezing Cardiovascular: chest pain, palpitations Endocrine: no symptoms reported Gastrointestinal: denies: abdominal pain, nausea, diarrhea Genitourinary: denies: urgency, dysuria, discharge Musculoskeletal: denies: back pain, joint swelling, arthralgia Skin: denies: rash, lesions Neurological: denies: headache, weakness, paresthesias Psychiatric: denies: anxiety, depression Hematological/Lymphatic: denies: easy bleeding, easy bruising ED Past Medical Hx - Past Medical History Previous Medical History?: Yes Hx Hypertension: Yes Hx CVA: Yes (age 21) Hx Heart Attack/AMI: Yes (3 times/mild, WPW) Hx Diabetes: Yes (borderline) Hx Deep Vein Thrombosis: Yes (RLL 2006) Hx Arthritis: Yes Hx Headaches / Migraines: Yes Hx Seizures: Yes (stress induced) Hx Psychiatric Treatment: Yes (ADD, childhood psychiatric problem that still persists) Hx Asthma: Yes (bronchitis) Additional medical history: neuropathy. sleep apnea - Surgical History Past Surgical History?: Yes Hx Breast Surgery: Yes (cyst removed) Additional Surgical History: breast cyst, - Social History Smoking Status: Never Smoker - Medications Home Medications: Home Medications Medication Instructions Recorded Confirmed Last Taken Type Aspirin [Aspirin BABY CHEW TAB] 81 mg PO DAILY #30 tab.chew 01/24/18 02/17/18 02/17/18 Rx Butalb/Acetamin/Caff 50-325-40 1 tab PO Q4H PRN #20 tablet 01/24/18 02/17/18 2 Weeks Ago Rx [Fioricet] ~02/03/18 Gabapentin [Neurontin] 100 mg PO Q8HR #30 capsule 01/24/18 02/17/18 Unknown Rx ALBUTEROL Inhaler (OR & NICU) 2 puff IH QID PRN #1 inhalation 03/06/18 Unknown Rx [ProAir HFA Inhaler] Nitrofurantoin Monohyd/M-Cryst 100 mg PO BID #13 capsule 03/08/18 Unknown Rx [Macrobid 100 mg Capsule] levETIRAcetam [Keppra] 500 mg PO BID #120 tablet 03/08/18 Unknown Rx Nitrofurantoin Monohyd/M-Cryst 100 mg PO Q12H 7 Days #14 capsule 06/22/18 Unknown Rx [Macrobid 100 mg Capsule] traMADol [Ultram 50 MG tab] 50 mg PO Q6HR PRN #7 tablet 10/10/18 Unknown Rx Acetaminophen [Tylenol Arthritis] 650 mg PO Q6HR PRN #30 tablet.er 10/24/18 Unknown Rx Aspirin [Aspirin BABY CHEW TAB] 81 mg PO QDAY #30 tab.chew 10/24/18 Unknown Rx ALBUTEROL Inhaler(NF) [VENTOLIN 1 puff IH BID #1 inha 11/06/18 Unknown Rx Inhaler(NF)] traMADol [Ultram] 50 mg PO Q6HR PRN #20 tablet 11/06/18 Unknown Rx ED Physical Exam - General Limitations: No Limitations General appearance: alert, in no apparent distress - Head Head exam: Present: atraumatic, normocephalic - Eye Eye exam: Present: normal appearance - ENT ENT exam: Present: mucous membranes moist - Neck Neck exam: Present: normal inspection - Respiratory Respiratory exam: Present: normal lung sounds bilaterally. Absent: respiratory distress - Cardiovascular Cardiovascular Exam: Present: regular rate, normal rhythm. Absent: systolic murmur, diastolic murmur, rubs, gallop - GI/Abdominal GI/Abdominal exam: Present: soft, normal bowel sounds - Extremities Exam Extremities exam: Present: normal inspection - Back Exam Back exam: Present: normal inspection - Neurological Exam Neurological exam: Present: alert, oriented X3 - Psychiatric Psychiatric exam: Present: normal affect, normal mood - Skin Skin exam: Present: warm, dry, intact, normal color. Absent: rash ED Course Vital Signs 11/05/18 11/06/18 11/06/18 21:55 02:25 02:45 Temperature 98.9 F 98.7 F Pulse Rate 93 H 76 80 Respiratory 18 18 20 Rate Blood Pressure 163/99 151/94 Blood Pressure 154/76 [Left] O2 Sat by Pulse 100 100 98 Oximetry 11/06/18 04:05 Temperature Pulse Rate 75 Respiratory 13 Rate Blood Pressure Blood Pressure 161/88 [Left] O2 Sat by Pulse 99 Oximetry ED Medical Decision Making - EKG Data EKG shows normal: sinus rhythm Rate: normal - EKG Data When compared to previous EKG there are: no significant change - Medical Decision Making Patient states he feels improvement does not want blood work. Patient states that she would rather follow up with her PCP. Patient with need for lab work to ensure some delayed injuries are. Patient states she felt comfortable to go home. - Differential Diagnosis arrhythmia; STEMI; Anxiety disorder Critical care attestation.: If time is entered above; I have spent that time in minutes in the direct care of this critically ill patient, excluding procedure time. ED Disposition Clinical Impression: Chest pain, Anxiety Disposition: DC-01 TO HOME OR SELFCARE Is pt being admited?: No Condition: Stable Instructions: Chest Pain (ED), Anxiety (ED) Prescriptions: traMADol [Ultram] 50 mg PO Q6HR PRN #20 tablet PRN Reason: Pain ALBUTEROL Inhaler(NF) [VENTOLIN Inhaler(NF)] 1 puff IH BID #1 inha Referrals: JESUS ROLDAN MD [Primary Care Provider] - 3-5 Days Time of Disposition: 04:32 Print Language: ICELANDIC
[2018-11-06 04:48] VITALS: BP 155/85
== END 2018-11-06 04:49 | disposition home or self-care (01) ==
LOC: ED 21:45
DX: R07.89 Other chest pain (principal); F41.9 Anxiety disorder, unspecified; I10 Essential (primary) hypertension; G43.909 Migraine, unspecified, not intractable, without status migrainosus; J45.909 Unspecified asthma, uncomplicated; E11.40 Type 2 diabetes mellitus with diabetic neuropathy, unspecified; G47.30 Sleep apnea, unspecified; Z86.718 Personal history of other venous thrombosis and embolism; Z88.0 Allergy status to penicillin; Z88.8 Allergy status to other drugs, medicaments and biological substances; Z79.82 Long term (current) use of aspirin
CPT/HCPCS: 81001; 81025; 93005; 93010; 99283

== ENCOUNTER 2020-11-14 22:33 | Emergency (ER) | payer MEDICARE ==
[2020-11-14 22:50] VITALS: BP 189/78
--- NOTE | 2020-11-15 00:16 | Emergency Department Report ---
ED Female HPI - General Chief complaint: Abdominal Pain Stated complaint: ABDOMINAL CRAMPS Source: patient Mode of arrival: Ambulatory Limitations: No Limitations - History of Present Illness Initial comments: 45-year-old morbid obese -Bhut[place] female presents to the emergency room stating that she is and wants an ultrasound. Patient states that her last menstrual period was in August. But she reports she had bleeding last month. Patient states she is seen by [facility] and was seen last week. Patient states that she had a positive urine test and a negative hCG serum test. Patient comes in reporting lower abdominal pain that is consist of cramping. She states she has spotting a couple days ago. Patient reports that she is is 3 para 2. Patient reports she has not taken anything for her cramps because she feels she is . MD Complaint: pelvic pain - Related Data Previous Rx's Medication Instructions Recorded Last Taken Type levETIRAcetam [Keppra] 500 mg PO BID #120 tablet 03/08/18 Unknown Rx ALBUTEROL Inhaler(NF) [VENTOLIN 1 puff IH BID #1 inha 11/06/18 Unknown Rx Inhaler(NF)] Albuterol Mdi (or & Nicu Only) 1 puff IH BID #1 inha 04/23/20 Unknown Rx [ProAir HFA Inhaler] Albuterol Mdi (or & Nicu Only) 2 puff IH QID PRN #1 inhalation 04/23/20 Unknown Rx [ProAir HFA Inhaler] Amlodipine Besylate [Norvasc] 5 mg PO DAILY #30 04/23/20 Unknown Rx Aspirin [Aspirin BABY CHEW TAB] 81 mg PO QDAY #30 tab.chew 04/23/20 Unknown Rx Losartan [Cozaar] 50 mg PO DAILY #30 04/23/20 Unknown Rx labetaloL [Labetalol 200mg TAB] 200 mg PO BID #60 04/23/20 Unknown Rx levETIRAcetam [Keppra TAB] 500 mg PO BID #60 tablet 04/23/20 Unknown Rx metFORMIN [Glucophage] 500 mg PO BID #60 04/23/20 Unknown Rx metFORMIN [Glucophage] 500 mg PO BID #60 tablet 04/23/20 Unknown Rx Allergies Allergy/AdvReac Type Severity Reaction Status Date / Time fluoxetine HCl [From Prozac] Allergy Unknown Verified 07/26/18 17:46 Penicillins Allergy Unknown Verified 07/26/18 17:46 ED Review of Systems ROS: Stated complaint: ABDOMINAL CRAMPS Other details as noted in HPI ED Past Medical Hx - Past Medical History Previous Medical History?: Yes Hx Hypertension: Yes Hx CVA: Yes (age 21) Hx Heart Attack/AMI: Yes (3 times/mild, WPW) Hx Congestive Heart Failure: No Hx Diabetes: Yes (borderline) Hx Deep Vein Thrombosis: Yes (RLL 2006) Hx Arthritis: Yes Hx Headaches / Migraines: Yes Hx Seizures: Yes (stress induced) Hx Psychiatric Treatment: Yes (ADD, childhood psychiatric problem that still persists) Hx Asthma: Yes (bronchitis) Hx COPD: Yes Additional medical history: neuropathy. sleep apnea - Surgical History Past Surgical History?: Yes Hx Breast Surgery: Yes (cyst removed) Additional Surgical History: breast cyst, - Social History Smoking Status: Never Smoker Substance Use Type: None - Medications Home Medications: Home Medications Medication Instructions Recorded Confirmed Last Taken Type levETIRAcetam [Keppra] 500 mg PO BID #120 tablet 03/08/18 04/22/20 Unknown Rx ALBUTEROL Inhaler(NF) [VENTOLIN 1 puff IH BID #1 inha 11/06/18 04/22/20 Unknown Rx Inhaler(NF)] Albuterol Mdi (or & Nicu Only) 1 puff IH BID #1 inha 04/23/20 Unknown Rx [ProAir HFA Inhaler] Albuterol Mdi (or & Nicu Only) 2 puff IH QID PRN #1 inhalation 04/23/20 Unknown Rx [ProAir HFA Inhaler] Amlodipine Besylate [Norvasc] 5 mg PO DAILY #30 04/23/20 Unknown Rx Aspirin [Aspirin BABY CHEW TAB] 81 mg PO QDAY #30 tab.chew 04/23/20 Unknown Rx Losartan [Cozaar] 50 mg PO DAILY #30 04/23/20 Unknown Rx labetaloL [Labetalol 200mg TAB] 200 mg PO BID #60 04/23/20 Unknown Rx levETIRAcetam [Keppra TAB] 500 mg PO BID #60 tablet 04/23/20 Unknown Rx metFORMIN [Glucophage] 500 mg PO BID #60 04/23/20 Unknown Rx metFORMIN [Glucophage] 500 mg PO BID #60 tablet 04/23/20 Unknown Rx ED Physical Exam - General Limitations: No Limitations General appearance: alert, in no apparent distress - Head Head exam: Present: atraumatic, normocephalic - Eye Eye exam: Present: normal appearance - ENT ENT exam: Present: mucous membranes moist - Neck Neck exam: Present: normal inspection, full ROM - Respiratory Respiratory exam: Absent: accessory muscle use - Cardiovascular Cardiovascular Exam: Present: regular rate - GI/Abdominal GI/Abdominal exam: Present: soft. Absent: distended - Extremities Exam Extremities exam: Present: normal inspection, full ROM - Back Exam Back exam: Present: normal inspection, full ROM - Neurological Exam Neurological exam: Present: alert, oriented X3 - Psychiatric Psychiatric exam: Present: normal affect, agitated - Skin Skin exam: Present: warm, dry, intact, normal color. Absent: rash ED Course Vital Signs 11/14/20 22:47 Temperature 98.5 F Pulse Rate 87 Respiratory 18 Rate Blood Pressure 189/78 O2 Sat by Pulse 97 Oximetry ED Medical Decision Making - Medical Decision Making 45-year-old morbid obese -[place]ut[place] female presents to the emergency room stating that she is and wants an ultrasound. Patient states that her last menstrual period was in August. But she reports she had bleeding last month. Patient states she is seen by [facility] and was seen last week. Patient states that she had a positive urine test and a negative hCG serum test. Patient comes in reporting lower abdominal pain that is consist of cramping. She states she has spotting a couple days ago. Patient reports that she is is 3 para 2. Patient reports she has not taken anything for her cramps because she feels she is . Serum hCG is less than 2 patient is not . Urinalysis is still pending. Patient has not given any urine as of 12:16 AM on 11/15/20. Urinalysis is negative for any infection. Critical care attestation.: If time is entered above; I have spent that time in minutes in the direct care of this critically ill patient, excluding procedure time. ED Disposition Clinical Impression: Delusional thoughts, Anxiety, Pelvic cramping, Negative test Disposition: TO HOME OR SELFCARE Is pt being admited?: No Does the pt Need Aspirin: No Condition: Stable Instructions: Abdominal Pain (ED) Additional Instructions: Blood work is negative for . Urinalysis is negative for any infection. You can take Tylenol or ibuprofen for abdominal cramping. Recommend to follow- up with your primary care provider. Referrals: PRIMARY CARE, [Primary Care Provider] - 3-5 Days [facility] [Provider Group] - 3-5 Days
[2020-11-15 01:47] LABS: Bacteria,Urine 1+ /HPF (Negative); Bilirubin,Urine NEG (Negative); Blood,Urine NEG (Negative); Color,Urine Yellow (Yellow); Protein,Urine <15 mg/dL mg/dL (Negative); Urobilinogen,Urine < 2.0 mg/dL (<2.0)
== END 2020-11-15 02:30 | disposition home or self-care (01) ==
LOC: ED 22:33
DX: R10.2 Pelvic and perineal pain (principal); F41.9 Anxiety disorder, unspecified; F22 Delusional disorders; Z32.02 Encounter for pregnancy test, result negative; I10 Essential (primary) hypertension; I25.2 Old myocardial infarction; E11.9 Type 2 diabetes mellitus without complications; M19.91 Primary osteoarthritis, unspecified site; G43.909 Migraine, unspecified, not intractable, without status migrainosus; J44.9 Chronic obstructive pulmonary disease, unspecified; Z98.890 Other specified postprocedural states; Z79.899 Other long term (current) drug therapy; Z88.0 Allergy status to penicillin; Z88.8 Allergy status to other drugs, medicaments and biological substances
CPT/HCPCS: 36415; 81001; 84702

== ENCOUNTER 2021-04-30 20:05 | Emergency (ER) | payer MEDICARE ==
--- NOTE | 2021-04-30 22:03 | Emergency Department Report ---
ED General Adult HPI - General Chief complaint: Chest Pain Stated complaint: MULTIPLE COMPLAINTS Time Seen by Provider: 04/30/21 21:28 Source: patient Mode of arrival: Ambulatory Limitations: No Limitations - History of Present Illness Initial comments: 45-year-old female presents to ED for evaluation. Patient states 2 months ago she was admitted to [facility] for COVID-19 infection. Patient states 3 days ago she received her second dose of the COVID-19 vaccine. She states 2 days ago she began feeling generally weak. She states she did not feel this way with the first dose of the vaccine. She states that the first dose of the vaccine she had a fever for several days. Patient denies any fever currently, she only reports the weakness. Patient also has multiple other complaints as well. She is stating that she wants to check her hemoglobin A1c to see if her diabetes has progressed. Patient is reporting that she is having some dryness and peeling of the skin of bilateral feet. She is also complaining of some right ankle and right lower leg swelling that has been present since she had her Covid infection. -: days(s) (2) Consistency: constant Improves with: none Worsens with: none Associated Symptoms: malaise, shortness of breath, weakness. denies: chest pain, fever/chills, headaches, nausea/vomiting - Related Data Previous Rx's Medication Instructions Recorded Last Taken Type levETIRAcetam [Keppra] 500 mg PO BID #120 tablet 03/08/18 Unknown Rx ALBUTEROL Inhaler(NF) [VENTOLIN 1 puff IH BID #1 inha 11/06/18 Unknown Rx Inhaler(NF)] Albuterol Mdi (or & Nicu Only) 1 puff IH BID #1 inha 04/23/20 Unknown Rx [ProAir HFA Inhaler] Albuterol Mdi (or & Nicu Only) 2 puff IH QID PRN #1 inhalation 04/23/20 Unknown Rx [ProAir HFA Inhaler] Amlodipine Besylate [Norvasc] 5 mg PO DAILY #30 04/23/20 Unknown Rx Aspirin [Aspirin BABY CHEW TAB] 81 mg PO QDAY #30 tab.chew 04/23/20 Unknown Rx Losartan [Cozaar] 50 mg PO DAILY #30 04/23/20 Unknown Rx labetaloL [Labetalol 200mg TAB] 200 mg PO BID #60 04/23/20 Unknown Rx levETIRAcetam [Keppra TAB] 500 mg PO BID #60 tablet 04/23/20 Unknown Rx metFORMIN [Glucophage] 500 mg PO BID #60 04/23/20 Unknown Rx metFORMIN [Glucophage] 500 mg PO BID #60 tablet 04/23/20 Unknown Rx Allergies Allergy/AdvReac Type Severity Reaction Status Date / Time fluoxetine HCl [From Prozac] Allergy Unknown Verified 07/26/18 17:46 Penicillins Allergy Unknown Verified 07/26/18 17:46 ED Review of Systems ROS: Stated complaint: MULTIPLE COMPLAINTS Other details as noted in HPI Comment: All other systems reviewed and negative Constitutional: malaise, weakness Respiratory: shortness of breath Cardiovascular: denies: chest pain Musculoskeletal: as per HPI Neurological: denies: headache ED Past Medical Hx - Past Medical History Previous Medical History?: Yes Hx Hypertension: Yes Hx CVA: Yes (age 21) Hx Heart Attack/AMI: Yes (3 times/mild, WPW) Hx Congestive Heart Failure: No Hx Diabetes: Yes (borderline) Hx Deep Vein Thrombosis: Yes (RLL 2006) Hx Arthritis: Yes Hx Headaches / Migraines: Yes Hx Seizures: Yes (stress induced) Hx Psychiatric Treatment: Yes (ADD, childhood psychiatric problem that still persists) Hx Asthma: Yes (bronchitis) Hx COPD: Yes Additional medical history: neuropathy. sleep apnea - Surgical History Past Surgical History?: Yes Hx Breast Surgery: Yes (cyst removed) Additional Surgical History: breast cyst, - Social History Smoking Status: Never Smoker Substance Use Type: None - Medications Home Medications: Home Medications Medication Instructions Recorded Confirmed Last Taken Type levETIRAcetam [Keppra] 500 mg PO BID #120 tablet 03/08/18 04/22/20 Unknown Rx ALBUTEROL Inhaler(NF) [VENTOLIN 1 puff IH BID #1 inha 11/06/18 04/22/20 Unknown Rx Inhaler(NF)] Albuterol Mdi (or & Nicu Only) 1 puff IH BID #1 inha 04/23/20 Unknown Rx [ProAir HFA Inhaler] Albuterol Mdi (or & Nicu Only) 2 puff IH QID PRN #1 inhalation 04/23/20 Unknown Rx [ProAir HFA Inhaler] Amlodipine Besylate [Norvasc] 5 mg PO DAILY #30 04/23/20 Unknown Rx Aspirin [Aspirin BABY CHEW TAB] 81 mg PO QDAY #30 tab.chew 04/23/20 Unknown Rx Losartan [Cozaar] 50 mg PO DAILY #30 04/23/20 Unknown Rx labetaloL [Labetalol 200mg TAB] 200 mg PO BID #60 04/23/20 Unknown Rx levETIRAcetam [Keppra TAB] 500 mg PO BID #60 tablet 04/23/20 Unknown Rx metFORMIN [Glucophage] 500 mg PO BID #60 04/23/20 Unknown Rx metFORMIN [Glucophage] 500 mg PO BID #60 tablet 04/23/20 Unknown Rx ED Physical Exam - General Limitations: No Limitations General appearance: alert, in no apparent distress - Head Head exam: Present: atraumatic, normocephalic - Eye Eye exam: Present: normal appearance, EOMI - ENT ENT exam: Present: mucous membranes moist - Neck Neck exam: Present: normal inspection - Respiratory Respiratory exam: Present: normal lung sounds bilaterally. Absent: respiratory distress - Cardiovascular Cardiovascular Exam: Present: regular rate, normal rhythm - GI/Abdominal GI/Abdominal exam: Present: soft. Absent: distended, tenderness - Extremities Exam Extremities exam: Present: other (There is some dryness of the skin around the lateral and plantar aspect of bilateral feet) - Neurological Exam Neurological exam: Present: alert, oriented X3 - Psychiatric Psychiatric exam: Present: normal affect, normal mood - Skin Skin exam: Present: warm, dry, intact, normal color ED Course Vital Signs 04/30/21 04/30/21 04/30/21 20:40 22:56 23:18 Temperature 98.3 F 98.8 F Pulse Rate 88 83 Respiratory 18 20 20 Rate Blood Pressure 160/80 Blood Pressure 122/56 [Left] O2 Sat by Pulse 100 97 97 Oximetry ED Medical Decision Making - Lab Data Result diagrams: 04/30/21 22:17 04/30/21 22:17 - EKG Data -: EKG Interpreted by Pr EKG shows normal: sinus rhythm, axis, intervals, QRS complexes, ST-T waves Rate: normal - EKG Data Interpretation: no acute changes - Radiology Data Radiology results: report reviewed, image reviewed - Medical Decision Making Patient presents to ED with generalized weakness. She reports recently receiving the second dose of her COVID-19 vaccine. Patient also reported some chest pain to triage nurse, however she did not inform me of any chest pain initially. EKG unremarkable. Troponin negative. Patient complaining of some right ankle and lower leg swelling since being hospitalized several weeks ago. Previous history of DVT. D-dimer was elevated, ultrasound was obtained, which shows no evidence of DVT. Given this finding, low suspicion for PE. Patient is also not tachycardic, not hypoxic and not in the ED respiratory distress. Patient advised to follow-up with her PCP. Return precautions given - Differential Diagnosis Hyperglycemia, UTI, , DVT Critical care attestation.: If time is entered above; I have spent that time in minutes in the direct care of this critically ill patient, excluding procedure time. ED Disposition Clinical Impression: Generalized weakness, Swelling of lower extremity Disposition: 01 HOME / SELF CARE / HOMELESS Is pt being admited?: No Condition: Stable Instructions: Weakness, [id number] Referrals: PRIMARY CAREMD [Primary Care Provider] - 3-5 Days CRISTHIAN KENNEDY MD [Staff Physician] - 3-5 Days [facility] [Provider Group] - 3-5 Days Time of Disposition: 02:09
[2021-04-30 23:11] LABS: Basophils % (Auto) 0.5 % (0.0-1.8); Eosinophils # (Auto) 0.2 K/mm3 (0.0-0.4); Hematocrit 33.3 % (30.3-42.9); Hemoglobin 11.2 gm/dl (10.1-14.3); Lymphocytes # (Auto) 2.4 K/mm3 (1.2-5.4); Lymphocytes % (Auto) 33.9 % (13.4-35.0); Mean Corpuscular HGB Conc 34 % (30-34); Mean Corpuscular Volume 82 fl (79-97); Monocytes # (Auto) 0.9 K/mm3 (0.0-0.8); Monocytes % (Auto) 12.2 % (0.0-7.3); Platelet Count 289 K/mm3 (140-440); Red Blood Count 4.08 M/mm3 (3.65-5.03); Red Cell Distribution Width 16.7 % (13.2-15.2)
[2021-04-30 23:19] VITALS: BP 122/56
[2021-04-30 23:23] LABS: INR 0.9 (0.87-1.13)
[2021-04-30 23:24] LABS: Partial Thromboplastin Time 31.6 Sec. (24.2-36.6)
[2021-04-30 23:33] LABS: Blood Urea Nitrogen 13 mg/dL (7-17); Calcium 9.2 mg/dL (8.4-10.2); Hemolysis Index 2
[2021-04-30 23:34] LABS: BUN/Creatinine Ratio 19
[2021-04-30 23:38] LABS: Bacteria,Urine 2+ /HPF (Negative); Bilirubin,Urine NEG (Negative); Blood,Urine LG (Negative); Color,Urine Yellow (Yellow); Mucus,Urine FEW /HPF
--- NOTE | 2021-05-01 02:20 | Vascular Lab Report ---
DUPLEX DOPPLER LOWER EXTREMITY VEINS, BILATERAL INDICATION / CLINICAL INFORMATION: swelling. TECHNIQUE: Duplex doppler imaging was performed through the veins of both lower extremities using lokesh ous compression and other maneuvers. COMPARISON: None available. FINDINGS: RIGHT COMMON FEMORAL VEIN: Negative. RIGHT FEMORAL VEIN: Negative. RIGHT POPLITEAL VEIN: Negative. RIGHT CALF VEINS: Negative. LEFT COMMON FEMORAL VEIN: Negative. LEFT FEMORAL VEIN: Negative. LEFT POPLITEAL VEIN: Negative. LEFT CALF VEINS: Negative. ADDITIONAL FINDINGS: None. IMPRESSION: 1. No sonographic evidence for DVT in either lower extremity. Signer Name: Fabian Bo DO Signed: 05/01/2021 2:15 AM Workstation Name: [id number]
[2021-05-01] MEDS ORDERED: ACETAMINOPHEN 500 MG TAB ONE (02:31)
--- NOTE | 2021-05-05 10:05 | Electrocardiograph Report ---
[facility] Test Date: 2021-04-30 Test Time: 23:11:57 Pat Name: RUSSEL MCCORMICK Department: Room: Gender: F Learning Support Assistant: [id number] : 1975 Requested By: BIANKA GAONA Order Number: [id number] Reading MD: Tio Pierce Measurements Intervals [place] Rate: 81 P: 51 UT: 157 QRS: 47 QRSD: 78 T: 46 QT: 373 QTc: 434 Interpretive Statements Sinus rhythm No previous ECG available for comparison Electronically Signed On 05-05-2021 10:05:21 EDT by Tio Pierce
== END 2021-05-01 02:31 | disposition home or self-care (01) ==
LOC: ED 20:05
DX: R53.1 Weakness (principal); M79.89 Other specified soft tissue disorders; R56.9 Unspecified convulsions; I10 Essential (primary) hypertension; R73.03 Prediabetes; Z86.79 Personal history of other diseases of the circulatory system; Z86.73 Personal history of transient ischemic attack (TIA), and cerebral infarction without residual deficits; Z88.0 Allergy status to penicillin; Z88.8 Allergy status to other drugs, medicaments and biological substances
CPT/HCPCS: 36415; 80048; 81001; 84484; 84703; 85025; 85379; 85610; 85730; 93005; 93970; 99284

== ENCOUNTER 2021-09-23 10:04 | Emergency (ER) | payer MEDICARE ==
[2021-09-23] MEDS ORDERED: IPRATROPIUM/ALBUTEROL SULFATE 3 ML AMPUL.NEB IH ONE (11:14)
[2021-09-23] MEDS ORDERED: HYDROcodone/ACETAMINOPHEN 5-325 MG TAB PO ONE (11:14)
--- NOTE | 2021-09-23 11:14 | XRay Report ---
CHEST 2 VIEWS INDICATION: chest pain. COMPARISON: 04/22/2020 FINDINGS: Support devices: None. Heart: Within normal limits. Lungs/Pleura: Mild interstitial prominence. No localized infiltrate. No significant pleural effusio n. IMPRESSION: Possible mild vascular congestion. Signer Name: Juan Tesfaye MD Signed: 09/23/2021 11:10 AM Workstation Name: [id number]
[2021-09-23 12:26] LABS: Alanine Aminotransferase 8 units/L (7-56); Albumin 4.3 g/dL (3.9-5); Blood Urea Nitrogen 10 mg/dL (7-17); Calcium 9.2 mg/dL (8.4-10.2); Hemolysis Index 15
[2021-09-23 12:28] LABS: BUN/Creatinine Ratio 20
[2021-09-23 12:44] LABS: Hematocrit 34.9 % (30.3-42.9); Hemoglobin 11.8 gm/dl (10.1-14.3); Mean Corpuscular HGB Conc 34 % (30-34); Mean Corpuscular Volume 83 fl (79-97); Platelet Count 313 K/mm3 (140-440); Red Blood Count 4.21 M/mm3 (3.65-5.03); Red Cell Distribution Width 14.9 % (13.2-15.2)
--- NOTE | 2021-09-23 13:28 | Emergency Department Report ---
ED Chest Pain HPI - General Chief Complaint: Chest Pain Stated Complaint: CHEST PAIN Time Seen by Provider: 09/23/21 11:03 Source: patient Mode of arrival: Ambulatory Limitations: No Limitations - History of Present Illness Initial Comments: chest pain since 6 am , pt hasn;t been to her doctor appointment since 1 months ago because she hasn;t had transporation, ps is reproducible, had to cough forcefully this morning MD Complaint: chest pain -: Gradual Onset: during rest Pain Radiation: none Severity scale (0 -10): 6 Quality: sharp Consistency: intermittent Improves With: eating - Related Data On Oral Contraceptives: No Previous Rx's Medication Instructions Recorded Last Taken Type levETIRAcetam [Keppra] 500 mg PO BID #120 tablet 03/08/18 Unknown Rx ALBUTEROL Inhaler(NF) [VENTOLIN 1 puff IH BID #1 inha 11/06/18 Unknown Rx Inhaler(NF)] Albuterol Mdi (or & Nicu Only) 1 puff IH BID #1 inha 04/23/20 Unknown Rx [ProAir HFA Inhaler] Albuterol Mdi (or & Nicu Only) 2 puff IH QID PRN #1 inhalation 04/23/20 Unknown Rx [ProAir HFA Inhaler] Amlodipine Besylate [Norvasc] 5 mg PO DAILY #30 04/23/20 Unknown Rx Aspirin [Aspirin BABY CHEW TAB] 81 mg PO QDAY #30 tab.chew 04/23/20 Unknown Rx Losartan [Cozaar] 50 mg PO DAILY #30 04/23/20 Unknown Rx labetaloL [Labetalol 200mg TAB] 200 mg PO BID #60 04/23/20 Unknown Rx levETIRAcetam [Keppra TAB] 500 mg PO BID #60 tablet 04/23/20 Unknown Rx metFORMIN [Glucophage] 500 mg PO BID #60 04/23/20 Unknown Rx metFORMIN [Glucophage] 500 mg PO BID #60 tablet 04/23/20 Unknown Rx Albuterol Mdi (or & Nicu Only) 1 puff IH BID PRN #8.5 gram 09/23/21 Unknown Rx [ProAir HFA Inhaler] Azithromycin [Zithromax Z-KATELYN] 250 mg PO DAILY #6 09/23/21 Unknown Rx Brompheniramine/Pseudoephed/Dm 5 ml PO Q6HR PRN #120 syrup 09/23/21 Unknown Rx [Bromfed Dm Cough Syrup] Allergies Allergy/AdvReac Type Severity Reaction Status Date / Time fluoxetine HCl [From Prozac] Allergy Unknown Verified 07/26/18 17:46 Penicillins Allergy Unknown Verified 07/26/18 17:46 Heart Score - HEART Score History: Slightly suspicious EKG: Normal Age: 45-65 Risk factors: > 3 risk factors or hx of atherosclerotic disease Troponin: < normal limit HEART Score: 3 - EKG Read Time Time EKG Completed: 10:21 EKG Read Time: 10:21 - Critical Actions Critical Actions: 0-3 pts:0.9-1.7%risk of adverse cardiac event.Candidate for discharge ED Review of Systems ROS: Stated complaint: CHEST PAIN Other details as noted in HPI Constitutional: denies: chills, fever Eyes: denies: eye pain, eye discharge, vision change ENT: denies: ear pain, throat pain Respiratory: denies: cough, shortness of breath, wheezing Cardiovascular: denies: chest pain, palpitations Endocrine: no symptoms reported Gastrointestinal: denies: abdominal pain, nausea, diarrhea Genitourinary: denies: urgency, dysuria, discharge Musculoskeletal: denies: back pain, joint swelling, arthralgia Skin: denies: rash, lesions Neurological: denies: headache, weakness, paresthesias Psychiatric: denies: anxiety, depression Hematological/Lymphatic: denies: easy bleeding, easy bruising ED Past Medical Hx - Past Medical History Hx Hypertension: Yes Hx CVA: Yes (age 21) Hx Heart Attack/AMI: Yes (3 times/mild, WPW) Hx Congestive Heart Failure: No Hx Diabetes: Yes (borderline) Hx Deep Vein Thrombosis: Yes (RLL 2006) Hx Arthritis: Yes Hx Headaches / Migraines: Yes Hx Seizures: Yes (stress induced) Hx Psychiatric Treatment: Yes (ADD, childhood psychiatric problem that still per sists) Hx Asthma: Yes (bronchitis) Hx COPD: Yes Additional medical history: neuropathy. sleep apnea - Surgical History Hx Breast Surgery: Yes (cyst removed) Additional Surgical History: breast cyst, - Social History Smoking Status: Never Smoker Substance Use Type: None - Medications Home Medications: Home Medications Medication Instructions Recorded Confirmed Last Taken Type levETIRAcetam [Keppra] 500 mg PO BID #120 tablet 03/08/18 04/22/20 Unknown Rx ALBUTEROL Inhaler(NF) [VENTOLIN 1 puff IH BID #1 inha 11/06/18 04/22/20 Unknown Rx Inhaler(NF)] Albuterol Mdi (or & Nicu Only) 1 puff IH BID #1 inha 04/23/20 Unknown Rx [ProAir HFA Inhaler] Albuterol Mdi (or & Nicu Only) 2 puff IH QID PRN #1 inhalation 04/23/20 Unknown Rx [ProAir HFA Inhaler] Amlodipine Besylate [Norvasc] 5 mg PO DAILY #30 04/23/20 Unknown Rx Aspirin [Aspirin BABY CHEW TAB] 81 mg PO QDAY #30 tab.chew 04/23/20 Unknown Rx Losartan [Cozaar] 50 mg PO DAILY #30 04/23/20 Unknown Rx labetaloL [Labetalol 200mg TAB] 200 mg PO BID #60 04/23/20 Unknown Rx levETIRAcetam [Keppra TAB] 500 mg PO BID #60 tablet 04/23/20 Unknown Rx metFORMIN [Glucophage] 500 mg PO BID #60 04/23/20 Unknown Rx metFORMIN [Glucophage] 500 mg PO BID #60 tablet 04/23/20 Unknown Rx Albuterol Mdi (or & Nicu Only) 1 puff IH BID PRN #8.5 gram 09/23/21 Unknown Rx [ProAir HFA Inhaler] Azithromycin [Zithromax Z-KATELYN] 250 mg PO DAILY #6 09/23/21 Unknown Rx Brompheniramine/Pseudoephed/Dm 5 ml PO Q6HR PRN #120 syrup 09/23/21 Unknown Rx [Bromfed Dm Cough Syrup] ED Physical Exam - General Limitations: No Limitations General appearance: alert, in no apparent distress - Head Head exam: Present: atraumatic, normocephalic - Eye Eye exam: Present: normal appearance - ENT ENT exam: Present: mucous membranes moist - Neck Neck exam: Present: normal inspection - Respiratory Respiratory exam: Present: normal lung sounds bilaterally, wheezes, chest wall tenderness. Absent: respiratory distress - Cardiovascular Cardiovascular Exam: Present: regular rate, normal rhythm. Absent: systolic murmur, diastolic murmur, rubs, gallop - GI/Abdominal GI/Abdominal exam: Present: soft, normal bowel sounds - Extremities Exam Extremities exam: Present: normal inspection - Back Exam Back exam: Present: normal inspection - Neurological Exam Neurological exam: Present: alert, oriented X3 - Psychiatric Psychiatric exam: Present: normal affect, normal mood - Skin Skin exam: Present: warm, dry, intact, normal color. Absent: rash ED Course Vital Signs 09/23/21 09/23/21 10:14 11:28 Temperature 98.2 F Pulse Rate 66 Pulse Rate [ 71 Anterior Bilateral Throughout] Respiratory 16 Rate Respiratory 18 Rate [Anterior Bilateral Throughout] Blood Pressure 119/55 [Left] O2 Sat by Pulse 100 Oximetry ED Medical Decision Making - Lab Data Result diagrams: 09/23/21 11:13 09/23/21 11:13 - EKG Data -: EKG Interpreted by Me EKG shows normal: sinus rhythm Rate: normal - EKG Data When compared to previous EKG there are: no significant change Interpretation: no acute changes - Radiology Data Radiology results: report reviewed, image reviewed - Medical Decision Making work up neg , vss , trop negative , pain ocntorlled x ray shwoed coongestion , will treat symptomatically Critical care attestation.: If time is entered above; I have spent that time in minutes in the direct care of this critically ill patient, excluding procedure time. ED Disposition Clinical Impression: Chest pain, Pulmonary congestion, COPD exacerbation Disposition: 01 HOME / SELF CARE / HOMELESS Is pt being admited?: No Does the pt Need Aspirin: No Condition: Stable Instructions: Nonspecific Chest Pain, Adult, Chronic Obstructive Pulmonary Disease (ED) Referrals: LIO SHELTON MD [Primary Care Provider] - 3-5 Days VLAD SPENCER MD [Staff Physician] - 3-5 Days
[2021-09-23 13:50] VITALS: BP 132/82
--- NOTE | 2021-09-24 10:03 | Electrocardiograph Report ---
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
== END 2021-09-23 13:50 | disposition home or self-care (01) ==
LOC: ED 10:04
DX: J44.1 Chronic obstructive pulmonary disease with (acute) exacerbation (principal); R09.89 Other specified symptoms and signs involving the circulatory and respiratory systems; I10 Essential (primary) hypertension; G43.909 Migraine, unspecified, not intractable, without status migrainosus; M19.90 Unspecified osteoarthritis, unspecified site; G47.30 Sleep apnea, unspecified; Z88.0 Allergy status to penicillin; Z88.8 Allergy status to other drugs, medicaments and biological substances; Z79.899 Other long term (current) drug therapy
CPT/HCPCS: 36415; 71046; 80053; 82550; 83690; 84484; 85025; 93005; 94640; 94644; 99284

== ENCOUNTER 2022-01-13 02:34 | Emergency (ER) | payer MEDICARE ==
[2022-01-13 02:50] VITALS: BP 152/82
[2022-01-13] MEDS ORDERED: KETOROLAC 10 MG TAB PO ONE (08:28)
[2022-01-13] MEDS ORDERED: dexAMETHasone 4 MG/ML VIAL IM ONE (08:28)
[2022-01-13] MEDS ORDERED: diphenhydrAMINE 25 MG CAP PO ONE (08:28)
[2022-01-13] MEDS ORDERED: METOCLOPRAMIDE 10 MG TAB PO ONE (08:29)
--- NOTE | 2022-01-13 10:00 | Emergency Department Report ---
ED Headache HPI - General Chief Complaint: Headache Stated Complaint: HEADPAIN Time Seen by Provider: 01/13/22 07:15 - History of Present Illness Initial Comments: 46-year-old black female with a past medical history of diabetes, CHF, NH, WPW, sleep apnea, COPD, and seizures presents to the emergency department for evaluation of headache. She states that for the last 2 days she has had a headache that was unrelieved when she took 1 dose of ibuprofen 2 days ago. She states that she has been outside walking around a lot and that yesterday she got so hot that she felt like she was going to pass out. She states that she was at home last night and was just tired went to bed, and woke up and still felt headache and felt like she was going to pass out. She states that her daughter told her that she thinks that she had a seizure. Patient states that she has had some nausea and she vomited 2 days ago twice. She denies nausea at this time, she denies vomiting, dizziness, vision changes, and photophobia. She states that she has been drinking plenty of fluids over the last day. At initial assessment, patient found to be resting comfortably in the bed and had to be awakened for examination. Timing/Duration: other (2 days) Quality: severe, achy, constant Head Injury Location: frontal Recent Head Trauma: frequent headaches (States that she takes medication for migraines but ran out recently) Associated Symptoms: fatigue, nausea/vomiting. denies: confusion, facial pain, fever/chills, flushing, loss of consciousness, nasal congestion, nasal drainage, numbness in legs/feet, rash, seizures, sinus infection, stiff neck, vision changes, weakness Allergies/Adverse Reactions: Allergies fluoxetine HCl [From Prozac] Allergy (Verified 07/26/18 17:46) Unknown Penicillins Allergy (Verified 07/26/18 17:46) Unknown Home Medications: Ambulatory Orders levETIRAcetam [Keppra] 500 mg PO BID #120 tablet 03/08/18 ALBUTEROL Inhaler(NF) [VENTOLIN Inhaler(NF)] 1 puff IH BID #1 inha 11/06/18 Albuterol Mdi (or & Nicu Only) [ProAir HFA Inhaler] 1 puff IH BID #1 inha 04/23/20 Albuterol Mdi (or & Nicu Only) [ProAir HFA Inhaler] 2 puff IH QID PRN #1 inhalation 04/23/20 Amlodipine Besylate [Norvasc] 5 mg PO DAILY #30 04/23/20 Aspirin [Aspirin BABY CHEW TAB] 81 mg PO QDAY #30 tab.chew 04/23/20 Losartan [Cozaar] 50 mg PO DAILY #30 04/23/20 labetaloL [Labetalol 200mg TAB] 200 mg PO BID #60 04/23/20 levETIRAcetam [Keppra TAB] 500 mg PO BID #60 tablet 04/23/20 metFORMIN [Glucophage] 500 mg PO BID #60 04/23/20 metFORMIN [Glucophage] 500 mg PO BID #60 tablet 04/23/20 Albuterol Mdi (or & Nicu Only) [ProAir HFA Inhaler] 1 puff IH BID PRN #8.5 gram 09/23/21 Azithromycin [Zithromax Z-KATELYN] 250 mg PO DAILY #6 09/23/21 Brompheniramine/Pseudoephed/Dm [Bromfed Dm Cough Syrup] 5 ml PO Q6HR PRN #120 syrup 09/23/21 Metoclopramide [Reglan] 10 mg PO TID PRN #30 tab 01/13/22 ED Review of Systems ROS: Stated complaint: HEADPAIN Other details as noted in HPI Comment: All other systems reviewed and negative Constitutional: malaise. denies: chills, fever, weakness Eyes: denies: eye pain, vision change ENT: denies: dental pain, congestion Respiratory: denies: cough, shortness of breath, SOB with exertion, SOB at rest, stridor, wheezing Cardiovascular: denies: chest pain, palpitations, dyspnea on exertion, orthopnea, edema, syncope, paroxysmal nocturnal dyspnea Gastrointestinal: denies: abdominal pain, nausea, vomiting, diarrhea, hematemesis, melena, hematochezia Genitourinary: denies: urgency, dysuria, frequency Musculoskeletal: denies: back pain Skin: denies: rash, lesions Neurological: headache. denies: weakness, numbness, paresthesias, confusion, abnormal gait, vertigo ED Past Medical Hx - Past Medical History Hx Hypertension: Yes Hx CVA: Yes (age 21) Hx Heart Attack/AMI: Yes (3 times/mild, WPW) Hx Congestive Heart Failure: No Hx Diabetes: Yes (borderline) Hx Deep Vein Thrombosis: Yes (RLL 2006) Hx Arthritis: Yes Hx Headaches / Migraines: Yes Hx Seizures: Yes (stress induced) Hx Psychiatric Treatment: Yes (ADD, childhood psychiatric problem that still persists) Hx Asthma: Yes (bronchitis) Hx COPD: Yes Additional medical history: neuropathy. sleep apnea - Surgical History Hx Breast Surgery: Yes (cyst removed) Additional Surgical History: breast cyst, - Social History Smoking Status: Never Smoker Substance Use Type: None - Medications Home Medications: Home Medications Medication Instructions Recorded Confirmed Last Taken Type levETIRAcetam [Keppra] 500 mg PO BID #120 tablet 03/08/18 04/22/20 Unknown Rx ALBUTEROL Inhaler(NF) [VENTOLIN 1 puff IH BID #1 inha 11/06/18 04/22/20 Unknown Rx Inhaler(NF)] Albuterol Mdi (or & Nicu Only) 1 puff IH BID #1 inha 04/23/20 Unknown Rx [ProAir HFA Inhaler] Albuterol Mdi (or & Nicu Only) 2 puff IH QID PRN #1 inhalation 04/23/20 Unknown Rx [ProAir HFA Inhaler] Amlodipine Besylate [Norvasc] 5 mg PO DAILY #30 04/23/20 Unknown Rx Aspirin [Aspirin BABY CHEW TAB] 81 mg PO QDAY #30 tab.chew 04/23/20 Unknown Rx Losartan [Cozaar] 50 mg PO DAILY #30 04/23/20 Unknown Rx labetaloL [Labetalol 200mg TAB] 200 mg PO BID #60 04/23/20 Unknown Rx levETIRAcetam [Keppra TAB] 500 mg PO BID #60 tablet 04/23/20 Unknown Rx metFORMIN [Glucophage] 500 mg PO BID #60 04/23/20 Unknown Rx metFORMIN [Glucophage] 500 mg PO BID #60 tablet 04/23/20 Unknown Rx Albuterol Mdi (or & Nicu Only) 1 puff IH BID PRN #8.5 gram 09/23/21 Unknown Rx [ProAir HFA Inhaler] Azithromycin [Zithromax Z-KATELYN] 250 mg PO DAILY #6 09/23/21 Unknown Rx Brompheniramine/Pseudoephed/Dm 5 ml PO Q6HR PRN #120 syrup 09/23/21 Unknown Rx [Bromfed Dm Cough Syrup] Metoclopramide [Reglan] 10 mg PO TID PRN #30 tab 01/13/22 Unknown Rx ED Physical Exam - General Limitations: No Limitations General appearance: alert, in no apparent distress - Head Head exam: Present: atraumatic, normocephalic - Eye Eye exam: Present: normal appearance. Absent: scleral icterus, conjunctival injection, periorbital swelling, periorbital tenderness - ENT ENT exam: Present: normal exam, normal orophraynx - Neck Neck exam: Present: normal inspection, full ROM. Absent: tenderness, lymphadenopathy - Respiratory Respiratory exam: Present: normal lung sounds bilaterally. Absent: respiratory distress, wheezes, rales, rhonchi, stridor, chest wall tenderness - Cardiovascular Cardiovascular Exam: Present: regular rate, normal heart sounds - GI/Abdominal GI/Abdominal exam: Present: soft, normal bowel sounds. Absent: distended, tenderness, guarding, rebound, rigid - Extremities Exam Extremities exam: Present: normal inspection, full ROM, normal capillary refill. Absent: tenderness, pedal edema, joint swelling - Back Exam Back exam: Present: normal inspection. Absent: CVA tenderness (R), CVA tenderness (L), vertebral tenderness - Neurological Exam Neurological exam: Present: alert, oriented X3, CN II-XII intact, normal gait, reflexes normal. Absent: motor sensory deficit - Expanded Neurological Exam Expanded Patient oriented to: Present: person, place, time Speech: Present: fluid speech Cranial nerves: EOM's Intact: Normal, Gag Reflex: Normal, Tongue Deviation: Normal, Nystagmus: Normal, Facial Sensation: Normal Ataxia: Absent: yes Sensory exam: Upper Extremity Light Touch: Normal, Upper Extremity Temperature: Normal, Lower Extremity Light Touch: Normal, Lower Extremity Temperature: Normal Motor strength exam: RUE: 5, LUE: 5, RLE: 5, LLE: 5 Best Eye Response (Michael): (4) open spontaneously Best Motor Response ([place]): (6) obeys commands Best Verbal Response (Michael): (5) oriented [place] Total: 15 - Psychiatric Psychiatric exam: Present: normal affect, normal mood - Skin Skin exam: Present: warm, dry, intact, normal color ED Course Vital Signs 01/13/22 02:44 Temperature 98.1 F Pulse Rate 85 Respiratory 16 Rate Blood Pressure 152/82 O2 Sat by Pulse 98 Oximetry - Reevaluation(s) Reevaluation #1: 01/13/22 10:02 Headache resolved after medication. Patient states that she feels much better and is sitting up in bed eating and talking on the phone at this time. No acute distress noted. ED Medical Decision Making - Medical Decision Making 46-year-old black female with a past medical history of diabetes, CHF, NH, WPW, sleep apnea, COPD, and seizures presents to the emergency department for evaluation of headache. She states that for the last 2 days she has had a headache that was unrelieved when she took 1 dose of ibuprofen 2 days ago. She states that she has been outside walking around a lot and that yesterday she got so hot that she felt like she was going to pass out. She states that she was at home last night and was just tired went to bed, and woke up and still felt headache and felt like she was going to pass out. She states that her daughter told her that she thinks that she had a seizure. Patient states that she has had some nausea and she vomited 2 days ago twice. She denies nausea at this time, she denies vomiting, dizziness, vision changes, and photophobia. She states that she has been drinking plenty of fluids over the last day. At initial assessment, patient found to be resting comfortably in the bed and had to be awakened for examination. Physical exam unremarkable. Headache resolved after medication. Patient able to ambulate to and from restroom without problems. Patient feels much better and is sitting up in bed eating and talking on the telephone. She will be discharged home with a prescription for Reglan which is what she usually takes at home for headache along with Benadryl to use as needed. She is advised to follow-up with neurology or her primary care provider if worsening symptoms. She is advised to return to the emergency department as needed. She verbalizes understanding of and agreement with plan of care. Critical care attestation.: If time is entered above; I have spent that time in minutes in the direct care of this critically ill patient, excluding procedure time. ED Disposition Clinical Impression: Head ache Qualifiers: Headache type: unspecified Headache chronicity pattern: acute headache Intractability: not intractable Qualified Code(s): R51.9 - Headache, unspecified Disposition: 01 HOME / SELF CARE / HOMELESS Is pt being admited?: No Does the pt Need Aspirin: No Condition: Stable Instructions: General Headache Without Cause, [id number] Additional Instructions: Take medications as prescribed. Follow-up with primary care provider or neurology as needed for further evaluation. Return to the emergency department as needed. Prescriptions: Metoclopramide [Reglan] 10 mg PO TID PRN #30 tab PRN Reason: Headache Referrals: LAM GUERRERO MD [Staff Physician] - 3-5 Days FELICIANO CARLISLE MD [Staff Physician] - 3-5 Days Time of Disposition: 10:08
== END 2022-01-13 10:15 | disposition home or self-care (01) ==
LOC: ED 02:34
DX: R51.9 Headache, unspecified (principal); M19.90 Unspecified osteoarthritis, unspecified site; J44.9 Chronic obstructive pulmonary disease, unspecified; I10 Essential (primary) hypertension; Z86.73 Personal history of transient ischemic attack (TIA), and cerebral infarction without residual deficits
CPT/HCPCS: 96372; 99283; J1100

== ENCOUNTER 2022-03-21 20:03 | Emergency (ER) | payer MEDICARE ==
[2022-03-21 22:15] LABS: Hematocrit 37.2 % (30.3-42.9); Hemoglobin 12.7 gm/dl (10.1-14.3); Mean Corpuscular HGB Conc 34 % (30-34); Mean Corpuscular Volume 81 fl (79-97); Platelet Count 332 K/mm3 (140-440); Red Blood Count 4.61 M/mm3 (3.65-5.03); Red Cell Distribution Width 16.7 % (13.2-15.2)
[2022-03-21 22:23] LABS: Blood Urea Nitrogen 11 mg/dL (7-17); Calcium 9.2 mg/dL (8.4-10.2); Hemolysis Index 3
[2022-03-21 22:27] LABS: BUN/Creatinine Ratio 18
[2022-03-21 23:00] LABS: Band Neutrophils # (Manual) 0.1 K/mm3; Basophils % (Manual) 0 % (0.0-1.8); Total Cells Counted 100
[2022-03-21 23:02] LABS: Anisocytosis 1+; Platelet Estimate Consistent w Auto
[2022-03-22] MEDS ORDERED: HYDROcodone/ACETAMINOPHEN 5-325 MG TAB PO ONE (05:18)
--- NOTE | 2022-03-22 06:21 | Emergency Department Report ---
ED General Adult HPI - General Chief complaint: Vaginal Bleeding Stated complaint: MISCARRAGE,WEAKNESS Time Seen by Provider: 03/22/22 01:06 Source: patient Mode of arrival: Ambulatory Limitations: No Limitations - History of Present Illness Initial comments: 46-year-old female with hypertension, CVAs, MIs, reports to the ER with complaints of possible miscarriage as she is having vaginal bleeding and cramping that started today. Patient reports that she had 2 positive at home test. Patient reports her last menstrual period was in January and she missed her February menstrual. Patient does report that her menstrual's are irregular. No other acute signs or symptoms noted. No dysuria, no nausea, no vomiting, no diarrhea. No other acute signs or symptoms reported. Severity scale (0 -10): 7 - Related Data Previous Rx's Medication Instructions Recorded Last Taken Type levETIRAcetam [Keppra] 500 mg PO BID #120 tablet 03/08/18 Unknown Rx ALBUTEROL Inhaler(NF) [VENTOLIN 1 puff IH BID #1 inha 11/06/18 Unknown Rx Inhaler(NF)] Albuterol Mdi (or & Nicu Only) 1 puff IH BID #1 inha 04/23/20 Unknown Rx [ProAir HFA Inhaler] Albuterol Mdi (or & Nicu Only) 2 puff IH QID PRN #1 inhalation 04/23/20 Unknown Rx [ProAir HFA Inhaler] Amlodipine Besylate [Norvasc] 5 mg PO DAILY #30 04/23/20 Unknown Rx Aspirin [Aspirin BABY CHEW TAB] 81 mg PO QDAY #30 tab.chew 04/23/20 Unknown Rx Losartan [Cozaar] 50 mg PO DAILY #30 04/23/20 Unknown Rx labetaloL [Labetalol 200mg TAB] 200 mg PO BID #60 04/23/20 Unknown Rx levETIRAcetam [Keppra TAB] 500 mg PO BID #60 tablet 04/23/20 Unknown Rx metFORMIN [Glucophage] 500 mg PO BID #60 04/23/20 Unknown Rx metFORMIN [Glucophage] 500 mg PO BID #60 tablet 04/23/20 Unknown Rx Albuterol Mdi (or & Nicu Only) 1 puff IH BID PRN #8.5 gram 09/23/21 Unknown Rx [ProAir HFA Inhaler] Azithromycin [Zithromax Z-KATELYN] 250 mg PO DAILY #6 09/23/21 Unknown Rx Brompheniramine/Pseudoephed/Dm 5 ml PO Q6HR PRN #120 syrup 09/23/21 Unknown Rx [Bromfed Dm Cough Syrup] Metoclopramide [Reglan] 10 mg PO TID PRN #30 tab 01/13/22 Unknown Rx Allergies Allergy/AdvReac Type Severity Reaction Status Date / Time fluoxetine HCl [From Prozac] Allergy Unknown Verified 07/26/18 17:46 Penicillins Allergy Unknown Verified 07/26/18 17:46 ED Review of Systems ROS: Stated complaint: MISCARRAGE,WEAKNESS Other details as noted in HPI Comment: All other systems reviewed and negative Gastrointestinal: abdominal pain. denies: nausea, vomiting, diarrhea Genitourinary: abnormal menses ED Past Medical Hx - Past Medical History Previous Medical History?: Yes Hx Hypertension: Yes Hx CVA: Yes (age 21) Hx Heart Attack/AMI: Yes (3 times/mild, WPW) Hx Congestive Heart Failure: No Hx Diabetes: Yes (borderline) Hx Deep Vein Thrombosis: Yes (RLL 2006) Hx Arthritis: Yes Hx Headaches / Migraines: Yes Hx Seizures: Yes (stress induced) Hx Psychiatric Treatment: Yes (ADD, childhood psychiatric problem that still persists) Hx Asthma: Yes (bronchitis) Hx COPD: Yes Additional medical history: neuropathy. sleep apnea - Surgical History Hx Breast Surgery: Yes (cyst removed) Additional Surgical History: breast cyst, - Social History Smoking Status: Never Smoker Substance Use Type: None - Medications Home Medications: Home Medications Medication Instructions Recorded Confirmed Last Taken Type levETIRAcetam [Keppra] 500 mg PO BID #120 tablet 03/08/18 04/22/20 Unknown Rx ALBUTEROL Inhaler(NF) [VENTOLIN 1 puff IH BID #1 inha 11/06/18 04/22/20 Unknown Rx Inhaler(NF)] Albuterol Mdi (or & Nicu Only) 1 puff IH BID #1 inha 04/23/20 Unknown Rx [ProAir HFA Inhaler] Albuterol Mdi (or & Nicu Only) 2 puff IH QID PRN #1 inhalation 04/23/20 Unknown Rx [ProAir HFA Inhaler] Amlodipine Besylate [Norvasc] 5 mg PO DAILY #30 04/23/20 Unknown Rx Aspirin [Aspirin BABY CHEW TAB] 81 mg PO QDAY #30 tab.chew 04/23/20 Unknown Rx Losartan [Cozaar] 50 mg PO DAILY #30 04/23/20 Unknown Rx labetaloL [Labetalol 200mg TAB] 200 mg PO BID #60 04/23/20 Unknown Rx levETIRAcetam [Keppra TAB] 500 mg PO BID #60 tablet 04/23/20 Unknown Rx metFORMIN [Glucophage] 500 mg PO BID #60 04/23/20 Unknown Rx metFORMIN [Glucophage] 500 mg PO BID #60 tablet 04/23/20 Unknown Rx Albuterol Mdi (or & Nicu Only) 1 puff IH BID PRN #8.5 gram 09/23/21 Unknown Rx [ProAir HFA Inhaler] Azithromycin [Zithromax Z-KATELYN] 250 mg PO DAILY #6 09/23/21 Unknown Rx Brompheniramine/Pseudoephed/Dm 5 ml PO Q6HR PRN #120 syrup 09/23/21 Unknown Rx [Bromfed Dm Cough Syrup] Metoclopramide [Reglan] 10 mg PO TID PRN #30 tab 01/13/22 Unknown Rx ED Physical Exam - General Limitations: No Limitations General appearance: alert, in no apparent distress - Head Head exam: Present: atraumatic, normocephalic - Eye Eye exam: Present: normal appearance - ENT ENT exam: Present: mucous membranes moist - Neck Neck exam: Present: normal inspection - Respiratory Respiratory exam: Present: normal lung sounds bilaterally. Absent: respiratory distress - Cardiovascular Cardiovascular Exam: Present: regular rate, normal rhythm. Absent: systolic murmur, diastolic murmur, rubs, gallop - GI/Abdominal GI/Abdominal exam: Present: soft, tenderness (Suprapubic area), normal bowel sounds. Absent: distended, guarding, rebound, rigid - Extremities Exam Extremities exam: Present: normal inspection - Back Exam Back exam: Present: normal inspection - Neurological Exam Neurological exam: Present: alert, oriented X3 - Psychiatric Psychiatric exam: Present: normal affect, normal mood - Skin Skin exam: Present: warm, dry, intact, normal color. Absent: rash ED Course Vital Signs 03/21/22 03/22/22 03/22/22 20:49 02:17 07:56 Temperature 99.3 F 97.7 F 98 F Pulse Rate 98 H 90 73 Respiratory 18 12 12 Rate Blood Pressure 169/81 154/75 142/77 [Right] O2 Sat by Pulse 96 98 96 Oximetry ED Medical Decision Making - Lab Data Result diagrams: 03/21/22 21:41 03/21/22 21:41 - Radiology Data [facility] [address] [place] [address] Ultrasound Report Signed Patient: RUSSEL MCCORMICK MR#: [id number] : 1975 Acct:[id number] Age/Sex: 46 / F ADM Date: 03/21/22 Loc: ED Attending Dr: Ordering Physician: DEANGELO BLACK NP Date of Service: 03/22/22 Procedure(s): US pelvic complete Accession Number(s): [id number] cc: DEANGELO BLACK NP PELVIC ULTRASOUND INDICATION: vaginal bleeding and pelvic cramping COMPARISON: None pertinent available TECHNIQUE: Transabdominal FINDINGS: Uterus: Prominent in size with measurements of 14.4 x 6.2 x 7.3 cm. Endometrial stripe measures 9 mm. No fluid is seen within the endometrial canal. No focal masses are seen. Right ovary: Measures 3.8 cm in length and shows no abnormalities. Blood flow is noted. Left ovary: Measures 3.6 cm in length and shows no abnormalities. Blood flow is noted. Free fluid: None IMPRESSION: No acute abnormalities are seen. Prominent uterine size. Signer Name: Jesus Olvera MD Signed: 03/22/2022 7:19 AM Workstation Name: [id number] Transcribed By: GJ Dictated By: Jesus Olvera MD Electronically Authenticated By: Jesus Olvera MD Signed Date/Time: 03/22/22718 DD/ 0 TD/TT: - Medical Decision Making 46-year-old female with hypertension, CVAs, MIs, reports to the ER with complaints of possible miscarriage as she is having vaginal bleeding and cramping that started today. Patient reports that she had 2 positive at home test. Patient reports her last menstrual period was in January and she missed her February menstrual. Patient does report that her menstrual's are irregular. No other acute signs or symptoms noted. No dysuria, no nausea, no vomiting, no diarrhea. No other acute signs or symptoms reported. On physical exam there is suprapubic tenderness noted. No other acute abdominal signs noted. No red flags noted. Ultrasound reveals no acute process. Patient is not . Labs are unremarkable. patient updated on results and US reports. patient informed to follow up with her PCP and [facility] as patient missed menstrual cycle due to irregular cycles or early menopause. Patient agrees with plan of care and verbalized understanding. No further work- up is needed at this time. Patient is stable for discharge home. Patient informed if symptoms are to get worse to report back to the ER. Vital Signs 03/21/22 03/22/22 03/22/22 20:49 02:17 07:56 Temperature 99.3 F 97.7 F 98 F Pulse Rate 98 H 90 73 Respiratory 18 12 12 Rate Blood Pressure 169/81 154/75 142/77 [Right] O2 Sat by Pulse 96 98 96 Oximetry Lab Results 03/21/22 03/21/22 03/21/22 Range/Units 21:41 21:41 21:41 WBC 11.2 H (4.5-11.0) K/mm3 RBC 4.61 (3.65-5.03) M/mm3 Hgb 12.7 (10.1-14.3) gm/dl Hct 37.2 (30.3-42.9) % MCV 81 (79-97) fl MCH 28 (28-32) pg MCHC 34 (30-34) % RDW 16.7 H (13.2-15.2) % Plt Count 332 (140-440) K/mm3 Add Manual Diff Complete Total Counted 100 Seg Neuts % (Manual) 70.0 (40.0-70.0) % Band Neutrophils % 1.0 % Lymphocytes % (Manual) 26.0 (13.4-35.0) % Reactive Lymphs % (Man) 0 % Monocytes % (Manual) 2.0 (0.0-7.3) % Eosinophils % (Manual) 1.0 (0.0-4.3) % Basophils % (Manual) 0 (0.0-1.8) % Metamyelocytes % 0 % Myelocytes % 0 % Promyelocytes % 0 % Blast Cells % 0 % Nucleated RBC % Not Reportable Seg Neutrophils # Man 7.8 H (1.8-7.7) K/mm3 Band Neutrophils # 0.1 K/mm3 Lymphocytes # (Manual) 2.9 (1.2-5.4) K/mm3 Abs React Lymphs (Man) 0.0 K/mm3 Monocytes # (Manual) 0.2 (0.0-0.8) K/mm3 Eosinophils # (Manual) 0.1 (0.0-0.4) K/mm3 Basophils # (Manual) 0.0 (0.0-0.1) K/mm3 Metamyelocytes # 0.0 K/mm3 Myelocytes # 0.0 K/mm3 Promyelocytes # 0.0 K/mm3 Blast Cells # 0.0 K/mm3 WBC Morphology Not Reportable Hypersegmented Neuts Not Reportable Hyposegmented Neuts Not Reportable Hypogranular Neuts Not Reportable Smudge Cells Not Reportable Toxic Granulation Not Reportable Toxic Vacuolation Not Reportable Dohle Bodies Not Reportable Pelger-Huet Anomaly Not Reportable Vandana Rods Not Reportable Platelet Estimate Consistent w auto Clumped Platelets Not Reportable Plt Clumps, EDTA Not Reportable Large Platelets Not Reportable Giant Platelets Not Reportable Platelet Satelliting Not Reportable Plt Morphology Comment Not Reportable RBC Morphology Not Reportable Dimorphic RBCs Not Reportable Polychromasia Not Reportable Hypochromasia Not Reportable Poikilocytosis Not Reportable Anisocytosis 1+ Microcytosis 1+ Macrocytosis Not Reportable Spherocytes Not Reportable Pappenheimer Bodies Not Reportable Sickle Cells Not Reportable Target Cells Not Reportable Tear Drop Cells Not Reportable Ovalocytes Not Reportable Helmet Cells Not Reportable Katz-Slaughters Bodies Not Reportable [place] Rings Not Reportable [place] Cells Not Reportable Bite Cells Not Reportable Crenated Cell Not Reportable Elliptocytes Not Reportable Acanthocytes (Spur) Not Reportable Rouleaux Not Reportable Hemoglobin C Crystals Not Reportable Schistocytes Not Reportable Malaria parasites Not Reportable Isreal Bodies Not Reportable Hem Pathologist Commnt No Sodium 136 L (137-145) mmol/L Potassium 3.5 L (3.6-5.0) mmol/L Chloride 99.7 (98-107) mmol/L Carbon Dioxide 24 (22-30) mmol/L Anion Gap 16 mmol/L BUN 11 (7-17) mg/dL Creatinine 0.6 (0.6-1.2) mg/dL Estimated GFR > 60 ml/min BUN/Creatinine Ratio 18 % Glucose 160 H (65-100) mg/dL Calcium 9.2 (8.4-10.2) mg/dL HCG, Quant < 2 (0-4) mIU/mL Blood Type Antibody Screen 03/21/22 Range/Units 21:48 WBC (4.5-11.0) K/mm3 RBC (3.65-5.03) M/mm3 Hgb (10.1-14.3) gm/dl Hct (30.3-42.9) % MCV (79-97) fl MCH (28-32) pg MCHC (30-34) % RDW (13.2-15.2) % Plt Count (140-440) K/mm3 Add Manual Diff Total Counted Seg Neuts % (Manual) (40.0-70.0) % Band Neutrophils % % Lymphocytes % (Manual) (13.4-35.0) % Reactive Lymphs % (Man) % Monocytes % (Manual) (0.0-7.3) % Eosinophils % (Manual) (0.0-4.3) % Basophils % (Manual) (0.0-1.8) % Metamyelocytes % % Myelocytes % % Promyelocytes % % Blast Cells % % Nucleated RBC % Seg Neutrophils # Man (1.8-7.7) K/mm3 Band Neutrophils # K/mm3 Lymphocytes # (Manual) (1.2-5.4) K/mm3 Abs React Lymphs (Man) K/mm3 Monocytes # (Manual) (0.0-0.8) K/mm3 Eosinophils # (Manual) (0.0-0.4) K/mm3 Basophils # (Manual) (0.0-0.1) K/mm3 Metamyelocytes # K/mm3 Myelocytes # K/mm3 Promyelocytes # K/mm3 Blast Cells # K/mm3 WBC Morphology Hypersegmented Neuts Hyposegmented Neuts Hypogranular Neuts Smudge Cells Toxic Granulation Toxic Vacuolation Dohle Bodies Pelger-Huet Anomaly Vandana Rods Platelet Estimate Clumped Platelets Plt Clumps, EDTA Large Platelets Giant Platelets Platelet Satelliting Plt Morphology Comment RBC Morphology Dimorphic RBCs Polychromasia Hypochromasia Poikilocytosis Anisocytosis Microcytosis Macrocytosis Spherocytes Pappenheimer Bodies Sickle Cells Target Cells Tear Drop Cells Ovalocytes Helmet Cells Katz-Slaughters Bodies [place] Rings Bonnie Cells Bite Cells Crenated Cell Elliptocytes Acanthocytes (Spur) Rouleaux Hemoglobin C Crystals Schistocytes Malaria parasites Isreal Bodies Hem Pathologist Commnt Sodium (137-145) mmol/L Potassium (3.6-5.0) mmol/L Chloride (98-107) mmol/L Carbon Dioxide (22-30) mmol/L Anion Gap mmol/L BUN (7-17) mg/dL Creatinine (0.6-1.2) mg/dL Estimated GFR ml/min BUN/Creatinine Ratio % Glucose (65-100) mg/dL Calcium (8.4-10.2) mg/dL HCG, Quant (0-4) mIU/mL Blood Type O POSITIVE Antibody Screen Negative Critical care attestation.: If time is entered above; I have spent that time in minutes in the direct care of this critically ill patient, excluding procedure time. ED Disposition Clinical Impression: Abdominal cramping, Vaginal bleeding Disposition: 01 HOME / SELF CARE / HOMELESS Is pt being admited?: No Condition: Stable Instructions: Abdominal Pain, Adult, Abnormal Uterine Bleeding Additional Instructions: Your at home test were likely false positives as today her [facility] [place] quantitative results are indicative that you are not currently . Referrals: LAM GUERRERO MD [Primary Care Provider] - 3-5 Days
--- NOTE | 2022-03-22 07:23 | Ultrasound Report ---
PELVIC ULTRASOUND INDICATION: vaginal bleeding and pelvic cramping COMPARISON: None pertinent available TECHNIQUE: Transabdominal FINDINGS: Uterus: Prominent in size with measurements of 14.4 x 6.2 x 7.3 cm. Endometrial stripe measures 9 mm. No fluid is seen within the endometrial canal. No focal masses are seen. Right ovary: Measures 3.8 cm in length and shows no abnormalities. Blood flow is noted. Left ovary: Measures 3.6 cm in length and shows no abnormalities. Blood flow is noted. Free fluid: None IMPRESSION: No acute abnormalities are seen. Prominent uterine size. Signer Name: Jesus Olvera MD Signed: 03/22/2022 7:19 AM Workstation Name: [id number]
[2022-03-22] MEDS ORDERED: IBUPROFEN 600 MG TAB PO ONE (07:43)
[2022-03-22 07:59] VITALS: BP 142/77
== END 2022-03-22 08:06 | disposition home or self-care (01) ==
LOC: ED 20:03
DX: R10.9 Unspecified abdominal pain (principal); N93.9 Abnormal uterine and vaginal bleeding, unspecified; Z88.0 Allergy status to penicillin; Z88.8 Allergy status to other drugs, medicaments and biological substances; I10 Essential (primary) hypertension
CPT/HCPCS: 36415; 76856; 80048; 84702; 85007; 85025; 86850; 86900; 86901; 99284